=== PATIENT | male | born 1955 | race Caucasian/White ===

== ENCOUNTER 2016-09-09 20:06 | Inpatient (IN) ==
[2016-09-09] MEDS ORDERED: SODIUM CHLORIDE 0.9% 1,000 ML IV STA (20:47)
[2016-09-09 20:55] LABS: Basophils % 0.2 % (0.0-0.8); Eosinophils # 0.1 10*3/uL (0.0-0.87); Eosinophils % 0.6 % (0.00-10.9); Hematocrit 42.9 VOL% (42.0-52.0); Hemoglobin 13.6 GM/DL (14.0-18.0); Immature Granulocytes % 0.5 %; Immature Granulocytes Absolute 0.08 #; Lymphocytes # 1.2 10*3/uL (1.4-4.0); Mean Corpuscular HGB Conc 31.7 GM/DL (32-36); Mean Corpuscular Hemoglobin 29 PG (27-34); Mean Corpuscular Volume 90.5 FL (87-102); Mean Platelet Volume 11.5 FL (9.6-12.0); Monocytes # 0.8 10*3/uL (0.11-0.8); Neutrophils # 14.7 10*3/uL (1.4-7.4); Neutrophils % 86.7 % (38.7-73.9); Platelet Count 202 10*3/uL (130-400); Red Blood Count 4.74 10*6/uL (3.8-5.5); Red Cell Distribution Width 13.1 % (9.3-17.3); White Blood Count 16.9 10*3/uL (4.5-13.71)
[2016-09-09 21:06] LABS: Ammonia 12 UMOL/L (11-32)
[2016-09-09 21:10] LABS: Alanine Aminotransferase 18 U/L (16-61); Albumin 3.6 G/DL (3.4-5.0); Alkaline Phosphatase 120 U/L (45-117); Aspartate Amino Transferase 16 U/L (0-37); Calcium 8.9 MG/DL (8.5-10.1)
[2016-09-09 21:11] LABS: Blood Urea Nitrogen 18 MG/DL (7-18); Glucose 169 MG/DL (74-106); Magnesium 1.8 MG/DL (1.8-2.4); Osmolality,Calculated 288.1 MOS/KG (273-304); Potassium 4.3 MMOL/L (3.5-5.1); Sodium 142 MMOL/L (136-145); Troponin I Only < 0.015 NG/ML (0.00-0.045)
--- NOTE | 2016-09-09 21:12 | CT Report ---
CT head/brain wo con Indication: Mental status changes. CT BRAIN WITHOUT CONTRAST DLP: 970 mGy*cm Comparison: None. Date of admission: 09/09/2016. Technique: Axial noncontrast CT images of the brain were obtained. Findings: No acute hemorrhage, mass or mass effect. Mild atrophy noted. Old lacunar infarcts of the right caudate nucleus, right internal capsule are present. Onofre-white junction is otherwise maintained throughout. Visualized sinuses and mastoid air cells are clear. No bone lesions. Impression: No acute intracranial pathology. Mild atrophy. Old lacunar infarcts right basal ganglia. PROCEDURE INTERPRETED AT [facility] DEPARTMENT OF RADIOLOGY Final Report Signed by: Kulwinder Moreira M.D.
--- NOTE | 2016-09-09 21:13 | XRay Report ---
XR chest 1V portable Indication: Altered metal status. Chest one view: Comparison 04/03/16. Postoperative changes median sternotomy shown. Heart size remains normal. Perihilar scarring is again noted, similar to the previous examination. Lung volumes are quite low on the current examination with progressive bibasilar atelectasis. No discrete infiltrate. Impression: Pulmonary hypoinflation with bibasilar atelectasis. Perihilar scarring similar to March 2016. PROCEDURE INTERPRETED AT [facility] DEPARTMENT OF RADIOLOGY Final Report Signed by: Kulwinder Moreira M.D.
[2016-09-09 21:24] LABS: ABG Base Excess 4.4 MMOL/L (-2.5-2.5); ABG HCO3 28.2 MMOL/L (20-26); ABG Oxygen Saturation 92.8 % (95-100); ABG PCO2 46.5 MM HG (35-48); ABG PH 7.414 (7.35-7.45)
[2016-09-09 22:11] LABS: Apearance,Urine CLEAR (Clear); Bilirubin,Urine Negative (Negative); Blood, Urine Negative (Negative); Glucose,Urine (UA) Negative (Negative); Granular Casts,Urine 4 /LPF (0-1); Hyaline Casts,Urine 3 /LPF (0-3); Ketones,Urine Negative (Negative); Mucus,Urine Occasional /LPF (Occasional); Nitrite,Urine Negative (Negative); Protein,Urine Negative; Urine Color Yellow (Yellow); Urine Specific Gravity 1.014 (1.001-1.035); Urine Urobilinogen < 2.0 EU/DL (0.2-1.0); WBC,Urine <1 /HPF (0-6)
[2016-09-09 22:21] LABS: Barbiturates Screen,Urine Negative (Negative); Benzodiazepines Screen,Urine Positive (Negative); Cannabinoid Screen,Urine Negative (Negative); Opiate Screen,Urine Positive (Negative); Phencyclidine Screen,Urine Negative (Negative)
[2016-09-10] MEDS ORDERED: LORazepam 2 MG/1 ML VIAL ONE (00:57)
[2016-09-10] MEDS ORDERED: LORazepam 2 MG/1 ML VIAL IV STA ×2 (01:00→02:00)
[2016-09-10] MEDS ORDERED: VANCOMYCIN INJ 1,000 MG in SODIUM CHLORIDE 0.9% 250 ML IV STA (02:19)
[2016-09-10] MEDS ORDERED: cefTRIAXone 2,000 MG in SODIUM CHLORIDE 0.9% 100 ML IV ONE (02:21)
--- NOTE | 2016-09-10 02:29 | Emergency Department Note ---
ICherelle Sierra, am scribing for, and in the presence of, Brandy Calderon DO 21:05. IKvng Catherine, DO, personally performed the services described in this documentation, ascribed by Keri Villarreal in my presence, and it is both accurate and complete . Arrival - Arrival Chief Complaint: Altered Mental Status Stated Complaint: PT FAMILY STATES UNRESPONSIVE ED Nursing Triage Note: pt removed from vehicle , pt urinating on himself , pt brought to ed for altered mental status. pt family states he had ca took off left arm and has been lethargic since yesterday. pt family states he has taken morphine 30 mg po and norco 10 po today Mode of Arrival: Wheelchair Limitations: Altered Mental Status Source: Family Time Seen by Provider: 09/09/16 20:45 - History of Present Illness HPI Narrative: Pt is a 61 y/o male that was brought to the ED for further evaluation of AMS that started yesterday. Pt was removed from personal vehicle and urinated on himself upon being taken out of the vehicle. Family dictated the visit due to pt talking out of his head. states pt went 3 days ago to have a spot removed on his right forearm that was CA and he was supposed to go back tomorrow to have the dressings removed from the area. also reports pt has had a fever of 101, cough, and vomiting that began yesterday. states pt does go to the pain management clinic. denies pt taking anything other than prescribed medications but did not take any of his normal medications today. also reports pt has been breaking out in his legs for an unknown reason. Nurse's notes reports pt's family states pt has taken morphine 30 mg and [place] 10 po today. denies pt having a previous stroke or seizure. Onset (ago): day(s) Consistency: constant Severity: moderate Severity scale (1-10): 5 Quality: other Allergies/Adverse Reactions: Allergies Allergy/AdvReac Type Severity Reaction Status Date / Time No Known Allergies Allergy Verified 09/09/16 20:25 Home Medications: Home Medications Medication Instructions Recorded Confirmed Type Atorvastatin [Lipitor] 20 mg PO DAILY 03/23/15 03/29/16 History Escitalopram [Lexapro] 20 mg PO DAILY 03/23/15 03/29/16 History Fluticasone/Vilanterol [Breo 1 puff PO DAILY 03/23/15 03/29/16 History Ellipta 100-25 Mcg INH] Hydrocodone/Acetaminophen 1 tablet PO Q8HR 03/23/15 03/29/16 History [Hydrocodon-Acetaminophn 10-325] Levothyroxine Tab [Synthroid Tab] 50 mcg PO DAILY 03/23/15 03/29/16 History Morphine ER Tab [Ms Contin] 30 mg PO Q12H 03/23/15 03/29/16 History Zolpidem [Ambien] 10 mg PO BEDTIME 03/23/15 03/29/16 History glipiZIDE [Glipizide] 5 mg PO DAILY 03/23/15 03/29/16 History Gabapentin Cap/Tab [Neurontin 300 mg PO TID #90 capsule 03/25/15 03/29/16 Rx Cap/Tab] Amiodarone HCl 100 mg PO DAILY 05/20/15 04/02/16 History Albuterol Sulfate [Proair HFA] 2 puff INH Q6H PRN 03/13/16 03/29/16 History Alprazolam [Xanax] 1 tablet PO BID 03/13/16 03/29/16 History Cholecalciferol (Vitamin D3) 5,000 unit PO DAILY 03/13/16 03/29/16 History [Vitamin D3] Multivitamin [Multivitamins] 1 tablet PO DAILY 03/13/16 03/29/16 History raNITIdine HCl [Ranitidine HCl] 1 tablet PO BEDTIME 03/13/16 03/29/16 History Levofloxacin Tab [Levaquin Tab] 750 mg PO DAILY #7 tablet 04/05/16 Rx predniSONE TAB [PredniSONE] 20 mg PO DAILY #20 tablet 04/05/16 Rx Review of System - Review of System ROS unobtainable: due to mental status - Review of System Constitutional: Present: fever, weakness Neurological: Present: other (altered and confused) Medical,Surgical,& Family Hx - Medical History Cardio: History of: Cardiac Dysrhythmia (a fib), CAD, Hypertension, [place] Psychological: History of: Anxiety Disorders HEENT: History of: Ear Problem Endocrine: History of: Diabetes Mellitus (NIDDM), Dyslipidemia, Thyroid Disorder Rheumatology: History of;: Rheumatological Problems Respiratory: History of: COPD (SOB), Pneumonia Comment Only: Lung Cancer (POSSIBLE) Genitourinary: History of: Problems (HARD TO URINATE AT TIMES) Gastrointestinal: History of: GERD, Hemorrhoids Musculoskeletal: History of: Back/Neck Problems, Musculoskeletal Problems Other: History of: Cancer (POSSIBLE LUNG), MRSA - Surgical History Cardiac Surgeries: Sugical HX of: Cardiac Catheterization, Cardiac Surgery ( CABG a year ago) Orthopedic Surgeries: Surgical HX of;: Orthopedic Surgery (3 KNEE SCOPES R ELBOW ) - Family History Family History: Reports;: Family Cancer (DAD), Family Heart Disease (MOM GRANDMOTHER), Family Stroke (GRANDMOTHER) - Social History Smoking Status: Former smoker Frequency of Alcohol Use: Unknown Type of Drug Use: Unknown Marital Status: Lives With:: Spouse Functional capacity: independent ambulation Exam Vital Signs: Vital Signs Temperature 99.3 F 09/10/16 00:45 Pulse Rate 100 H 09/09/16 20:31 Respiratory Rate 20 09/09/16 20:31 Blood Pressure 120/77 09/09/16 20:31 O2 Sat by Pulse Oximetry 86 L 09/09/16 20:31 - General Exam limited due to: other (unable to answer questions due to confusion) General appearance: alert, in no apparent distress, other (confused) - Head Head exam: Present: atraumatic, normocephalic - Eye Eye exam: Present: normal appearance, PERRL, EOMI - ENT ENT exam: Present: mucous membranes moist. Absent: mucous membranes dry - Neck Neck exam: Present: full ROM. Absent: tenderness, meningismus - Chest Chest inspection: Present: symmetric chest wall rise. Absent: tenderness - Respiratory Respiratory exam: Present: normal lung sounds bilaterally. Absent: accessory muscle use, respiratory distress - Cardiovascular Cardiovascular exam: Present: regular rate, normal rhythm, normal heart sounds - Abdominal Exam Abdominal exam: Present: soft, normal bowel sounds. Absent: distention, tenderness, rebound, rigidity - Extremities Exam Extremities exam: Present: full ROM. Absent: tenderness - Back Exam Back exam: Present: full ROM. Absent: tenderness - Neurological Exam Neurological exam: Present: alert, reflexes normal, other (confused). Absent: motor sensory deficit - Psychiatric Psychiatric exam: Present: other - Skin Skin exam: Present: warm, dry Course Course Narrative: he is continuing to be confused - septic work up completed - spinal tap also done - plan to admit at this time - Consultations Consultation #1: Dr. Urbina Time: 02:28 Procedures - Lumbar Puncture Consent Obtained: verbal consent Time Out Performed: Yes Patient Position: right lateral decubitus Skin Prep: Povidone-Iodine 1% Local Anesthetic: lidocaine 1% Amount of anesthesia used (mL): 10 Spinal Needle Gauge: 22G Interspace Used: L3-L4 Fluid Initially Obtained: clear Additional Comments: difficult tap due to extensive arthritis nad chronic low back pain Complications: none Results - Labs CBC & BMP: 09/09/16 20:32 09/09/16 20:32 Lab Results: I have reviewed the patients labs Labs: Laboratory Tests 09/09/16 20:32 WBC 16.9 H Hgb 13.6 L MCHC 31.7 L Neut % (Auto) 86.7 H Lymph % (Auto) 7.0 L Neut # (Auto) 14.7 H Lymph # (Auto) 1.2 L Laboratory Tests 09/09/16 20:32 Anion Gap 16.3 H Creatinine 1.60 H Glucose 169 H Alkaline Phosphatase 120 H Albumin/Globulin Ratio 1.0 L Laboratory Tests 09/09/16 20:47 ABG pO2 60.0 L ABG HCO3 28.2 H ABG O2 Saturation 92.8 L ABG Base Excess 4.4 H Laboratory Tests 09/09/16 20:32 Urine Urobilinogen < 2.0 H Laboratory Tests 09/09/16 21:53 Urine Opiates Screen Positive H U Benzodiazepines Scrn Positive H - Diagnostic Findings Procedure: Chest x-ray: report reviewed by me (Pulmonary hypoinflation with bibasilar atelectasis. Perihilar scarring similar to March 2016.), CT: report reviewed by me (Head: No acute intracranial pathology. Mild atrophy. Old lacunar infarcts right basal ganglia. ) Disposition Clinical Impression: Altered mental status, unspecified Case discussed with: patient, patient's family Disposition: Still a Patient Condition: Stable Time of Disposition:
--- NOTE | 2016-09-10 02:45 | Hospitalist History & Physical ---
Assessment and Plan (1) Febrile illness Status: Acute Current Visit: Yes (2) recent melanoma removal Status: Acute Current Visit: Yes (3) Leukocytosis Status: Acute Current Visit: Yes (4) Smoker Status: Acute Current Visit: No (5) Anxiety and depression Status: Acute Current Visit: No (6) Chronic obstructive pulmonary disease with bronchospasm Status: Acute Current Visit: No (7) Bronchitis Status: Acute Assessment and plan: Our plan for this patient #1 admit the patient service #[address] Damian for evaluation of his arm #3 broad coverage antibiotics #4 follow-up on LP results #5 home meds as appropriate #[address] 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 Francois is a 61 year old male with past medical history significant for COPD, chronic pain, melanoma cancer, coronary artery disease, and history of staph his family reports that he had surgery to have a melanoma taken off [address] Lainez inform them do not miss with the dressing and he would take it off himself to when they went back to the office. He was scheduled to see Dr. Damian today. Family reports that he's just been gradually getting weak over the past couple of days. He's been really confused. He's been running a fever. They report that they had to get him in the truck with assistance today to bring him up to the hospital for further evaluation. He urinated on himself. He's been confused while in the emergency room and I was consulted to admit him. He had a lumbar puncture in the emergency room results are pending. Family reports that he's had a cough and some vomiting. denies patient taken anything other than his prescribed medications. Home Medications Medication Instructions Recorded Confirmed Type Atorvastatin [Lipitor] 20 mg PO DAILY 03/23/15 03/29/16 History Escitalopram [Lexapro] 20 mg PO DAILY 03/23/15 03/29/16 History Fluticasone/Vilanterol [Breo 1 puff PO DAILY 03/23/15 03/29/16 History Ellipta 100-25 Mcg INH] Hydrocodone/Acetaminophen 1 tablet PO Q8HR 03/23/15 03/29/16 History [Hydrocodon-Acetaminophn 10-325] Levothyroxine Tab [Synthroid Tab] 50 mcg PO DAILY 03/23/15 03/29/16 History Morphine ER Tab [Ms Contin] 30 mg PO Q12H 03/23/15 03/29/16 History Zolpidem [Ambien] 10 mg PO BEDTIME 03/23/15 03/29/16 History glipiZIDE [Glipizide] 5 mg PO DAILY 03/23/15 03/29/16 History Gabapentin Cap/Tab [Neurontin 300 mg PO TID #90 capsule 03/25/15 03/29/16 Rx Cap/Tab] Amiodarone HCl 100 mg PO DAILY 05/20/15 04/02/16 History Albuterol Sulfate [Proair HFA] 2 puff INH Q6H PRN 03/13/16 03/29/16 History Alprazolam [Xanax] 1 tablet PO BID 03/13/16 03/29/16 History Cholecalciferol (Vitamin D3) 5,000 unit PO DAILY 03/13/16 03/29/16 History [Vitamin D3] Multivitamin [Multivitamins] 1 tablet PO DAILY 03/13/16 03/29/16 History raNITIdine HCl [Ranitidine HCl] 1 tablet PO BEDTIME 03/13/16 03/29/16 History Levofloxacin Tab [Levaquin Tab] 750 mg PO DAILY #7 tablet 04/05/16 Rx predniSONE TAB [PredniSONE] 20 mg PO DAILY #20 tablet 04/05/16 Rx Allergies Allergy/AdvReac Type Severity Reaction Status Date / Time No Known Allergies Allergy Verified 09/09/16 20:25 Medical,Surgical,& Family Hx - Medical History Cardio: History of: Cardiac Dysrhythmia (a fib), CAD, Hypertension, [place] Psychological: History of: Anxiety Disorders HEENT: History of: Ear Problem Endocrine: History of: Diabetes Mellitus (NIDDM), Dyslipidemia, Thyroid Disorder Rheumatology: History of;: Rheumatological Problems Respiratory: History of: COPD (SOB), Pneumonia Comment Only: Lung Cancer (POSSIBLE) Genitourinary: History of: Problems (HARD TO URINATE AT TIMES) Gastrointestinal: History of: GERD, Hemorrhoids Musculoskeletal: History of: Back/Neck Problems, Musculoskeletal Problems Other: History of: Cancer (POSSIBLE LUNG), MRSA - Surgical History Cardiac Surgeries: Sugical HX of: Cardiac Catheterization, Cardiac Surgery ( CABG a year ago) Orthopedic Surgeries: Surgical HX of;: Orthopedic Surgery (3 KNEE SCOPES R ELBOW ) - Family History Family History: Reports;: Family Cancer (DAD), Family Heart Disease (MOM GRANDMOTHER), Family Stroke (GRANDMOTHER) - Social History Smoking Status: Former smoker Frequency of Alcohol Use: Unknown Type of Drug Use: Unknown ROS unobtainable: due to delirium Exam - Constitutional Vitals: Period Temp Pulse Resp BP Sys/Ingram Pulse Ox Last 24 Hr 99.3 F-100.6 F 100-100 20-20 120/77 86 - General Exam limited due to: other (unable to answer questions due to confusion that waxes and wanes) General appearance: alert, in no apparent distress, infusion is present - Head Head exam: Present: atraumatic, normocephalic - Eye Eye exam: Present: normal appearance, PERRL, EOMI - ENT ENT exam: Present: mucous membranes moist. Absent: mucous membranes dry - Neck Neck exam: Present: full ROM. Patient does have rigidity in his neck unsure if this is new - Chest Chest inspection: Present: symmetric chest wall rise. Patient has a skin graft in the center of his chest. Absent: tenderness - Respiratory Respiratory exam: Present: Coarse lung sounds bilaterally. - Cardiovascular Cardiovascular exam: Present: regular rate, normal rhythm, normal heart sounds - Abdominal Exam Abdominal exam: Present: soft, normal bowel sounds. Absent: distention, tenderness, rebound, rigidity - Extremities Exam Extremities exam: Present: full ROM. Patient has a full bandage covering up his wound from his surgery on his right right forearm Absent: tenderness - Back Exam Back exam: Present: full ROM. Absent: tenderness - Neurological Exam Neurological exam: Present: alert, reflexes normal, other (confused). Absent: motor sensory deficit - Psychiatric Psychiatric exam: Present: other - Skin Skin exam: Present: warm, dry Results - Labs CBC & BMP: 09/09/16 20:32 09/09/16 20:32
[2016-09-10] MEDS ORDERED: VANCOMYCIN 1,000 MG VIAL ONE (02:52)
[2016-09-10] MEDS ORDERED: cefTRIAXone 1,000 MG VIAL ONE (02:52)
[2016-09-10] MEDS ORDERED: ACETAMINOPHEN 325 MG TABLET PO PRN (02:53)
[2016-09-10] MEDS ORDERED: ONDANSETRON 4 MG/2 ML VIAL IV PRN (02:53)
[2016-09-10] MEDS ORDERED: DEXTROSE 50% 25 GM/50 ML VIAL IV PRN (03:01)
[2016-09-10] MEDS ORDERED: GLUCAGON 1 MG VIAL IM PRN (03:01)
[2016-09-10] MEDS ORDERED: LORazepam 2 MG/1 ML VIAL IV PRN (03:06)
[2016-09-10] MEDS ORDERED: ALBUTEROL/IPRATROPIUM 3 ML NEB RESP TX PRN (03:07)
[2016-09-10 04:18] LABS: Appearance,CSF Clear; Lymphocytes,CSF 74 %; Monocytes,CSF 26 %; Red Blood Cell,CSF 46 C/CUMM; White Blood Cell,CSF 19 C/CUMM
[2016-09-10] MEDS: VANCOMYCIN INJ 1,000 MG in SODIUM CHLORIDE 0.9% 250 ML IV SCH ×2 (04:30→05:57)
[2016-09-10] MEDS: MORPHINE ER 30 MG TABLET PO SCH ×2 (05:08→16:00)
[2016-09-10] MEDS: ENOXAPARIN 40 MG/0.4 ML SYRINGE SUBCUT SCH (05:11)
[2016-09-10 05:41] LABS: Basophils % 0.2 % (0.0-0.8); Eosinophils % 0.3 % (0.00-10.9); Hemoglobin 11.2 GM/DL (14.0-18.0); Immature Granulocytes % 0.7 %; Immature Granulocytes Absolute 0.11 #; Lymphocytes # 1.9 10*3/uL (1.4-4.0); Lymphocytes % 12.1 % (21.2-54.2); Mean Corpuscular HGB Conc 31.1 GM/DL (32-36); Mean Corpuscular Hemoglobin 29 PG (27-34); Mean Corpuscular Volume 91.8 FL (87-102); Mean Platelet Volume 11.4 FL (9.6-12.0); Monocytes # 1.2 10*3/uL (0.11-0.8); Monocytes % 7.4 % (1.7-12.7); Neutrophils # 12.4 10*3/uL (1.4-7.4); Neutrophils % 79.3 % (38.7-73.9); Platelet Count 167 10*3/uL (130-400); Red Blood Count 3.92 10*6/uL (3.8-5.5); Red Cell Distribution Width 13.2 % (9.3-17.3); White Blood Count 15.6 10*3/uL (4.5-13.71)
[2016-09-10] MEDS ORDERED: VANCOMYCIN INJ 1,000 MG in SODIUM CHLORIDE 0.9% 250 ML IV ONE (06:00)
[2016-09-10 06:13] LABS: Calcium 8.3 MG/DL (8.5-10.1); Osmolality,Calculated 286.8 MOS/KG (273-304); Potassium 4.2 MMOL/L (3.5-5.1)
[2016-09-10] MEDS: LEVOTHYROXINE 50 MCG TABLET PO SCH (07:21)
--- NOTE | 2016-09-10 07:23 | EKG Report ---
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
[2016-09-10] MEDS: ALBUTEROL/IPRATROPIUM 3 ML NEB RESP TX SCH ×3 (07:46→19:17)
--- NOTE | 2016-09-10 07:54 | Pulmonology Consult Note ---
Assessment and Plan (1) Bronchopneumonia Status: Acute Assessment and plan: Fever cough elevated white count and patchy infiltrate in the right lower lobe on x-ray. Agree with current antibiotics. He is being covered for possible meningitis as well with these antibiotics. Await spinal tap reports. Current Visit: Yes (2) Altered mental status, unspecified Status: Acute Assessment and plan: Patient is more alert this morning. I suspect it was a combination of his acute febrile illness and his chronic pain medications that caused the confusion and hallucinations. However a neurology evaluation would be helpful. Brain CT did not show anything specific. Family assures me that one of his sons supervises his pain medications. Current Visit: Yes (3) recent melanoma removal Status: Acute Assessment and plan: Dr. José Miguel Damian removed a melanoma from his right arm last week. This needs following up during this hospitalization. Current Visit: Yes (4) Chronic obstructive pulmonary disease with bronchospasm Status: Acute Assessment and plan: Will treat with low-dose IV STEROIDS as well as bronchodilators and antibiotics. We need to check ABGs to be sure he is not having CO2 narcosis. Current Visit: No History of Present Illness Chief complaint: confusion, cough, fever History of present illness: Mr. Francois is a 61 year old male who had a lesion removed from his right arm recently that is reportedly a melanoma. He has been on pain medication chronically with oral long-acting morphine as well as [place]. Family relates that he's been taking it just as prescribed. Yesterday he had some fever cough and was quite confused and lethargic. He urinated on himself. He had to be floated into the truck and taken to the emergency room. This morning he is a little more alert and oriented. He has a history of atherosclerotic heart disease with coronary bypass surgery. 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 He has been evaluated recently to decide about closing that with a flap. I think he is high risk for any surgery. At any rate he comes in now with a patchy infiltrate in his lungs, elevated white count, lethargy, and low-grade fever. Probably represents bronchopneumonia aggravated by pain medications as the cause of his confusion. He has had a spinal tap with results pending. He's had a brain CT with no specific findings. He recently was followed for a left upper lobe lung mass that has essentially resolved. It was a slowly resolving pneumonia. Home Medications Medication Instructions Recorded Confirmed Type Atorvastatin [Lipitor] 20 mg PO DAILY 03/23/15 09/10/16 History Escitalopram [Lexapro] 20 mg PO DAILY 03/23/15 09/10/16 History Fluticasone/Vilanterol [Breo 1 puff PO DAILY 03/23/15 09/10/16 History Ellipta 100-25 Mcg INH] Hydrocodone/Acetaminophen 1 tablet PO Q8HR 03/23/15 09/10/16 History [Hydrocodon-Acetaminophn 10-325] Levothyroxine Tab [Synthroid Tab] 50 mcg PO DAILY 03/23/15 09/10/16 History Morphine ER Tab [Ms Contin] 30 mg PO Q12H 03/23/15 09/10/16 History Zolpidem [Ambien] 10 mg PO BEDTIME 03/23/15 09/10/16 History glipiZIDE [Glipizide] 5 mg PO DAILY 03/23/15 09/10/16 History Gabapentin Cap/Tab [Neurontin 300 mg PO TID #90 capsule 03/25/15 09/10/16 Rx Cap/Tab] Amiodarone HCl 100 mg PO DAILY 05/20/15 09/10/16 History Albuterol Sulfate [Proair HFA] 2 puff INH Q6H PRN 03/13/16 09/10/16 History Alprazolam [Xanax] 1 tablet PO BID 03/13/16 09/10/16 History Cholecalciferol (Vitamin D3) 5,000 unit PO DAILY 03/13/16 09/10/16 History [Vitamin D3] Multivitamin [Multivitamins] 1 tablet PO DAILY 03/13/16 09/10/16 History raNITIdine HCl [Ranitidine HCl] 1 tablet PO BEDTIME 03/13/16 09/10/16 History predniSONE TAB [PredniSONE] 20 mg PO DAILY #20 tablet 04/05/16 09/10/16 Rx Allergies Allergy/AdvReac Type Severity Reaction Status Date / Time No Known Allergies Allergy Verified 09/09/16 20:25 12 point system: reviewed and no additional remarkable complaints except as stated - Constitutional Constitutional: Present: anorexia, fatigue, malaise - Cardiovascular Cardiovascular: Present: dyspnea, dyspnea on exertion - Respiratory Respiratory: Present: cough, dyspnea, dyspnea on exertion, wheezing, pain on inspiration (right subcostal pain), change in phlegm color - Gastrointestinal Gastrointestinal: Present: nausea - Musculoskeletal Musculoskeletal: Present: arthralgias, myalgias - Neurological Neurological: Present: confusion - Psychiatric Psychiatric: Present: visual hallucinations Exam (Pulmonay) H&P - Constitutional Vitals: Period Temp Pulse Resp BP Sys/Ingram Pulse Ox Last 24 Hr 99.2 F-100.3 F 77-83 20-20 130-152/51-75 93-95 Exam: Temperature was 100.3 overnight. Vital signs otherwise normal. Patient is alert and answering questions. He recalls making some odd statements about Russians coming to see him yesterday. He realizes that it was not happening now. Pupils react to light. Throat is clear. Neck supple no bruits. Chest reveals some scattered expiratory wheezes and rhonchi bilaterally. He has a defect over his sternum. The sternum is covered with skin only. Heart shows a normal rate and rhythm no murmurs. Abdomen soft nontender no masses. Bowel sounds present. Extremities no clubbing cyanosis or edema. There is some mild tenderness in his calves. Medical,Surgical,& Family Hx - Medical History Cardio: History of: Cardiac Dysrhythmia (a fib), CAD, Hypertension, [place] Psychological: History of: Anxiety Disorders HEENT: History of: Ear Problem Endocrine: History of: Diabetes Mellitus (NIDDM), Dyslipidemia, Thyroid Disorder Rheumatology: History of;: Rheumatological Problems Respiratory: History of: COPD (SOB), Pneumonia Comment Only: Lung Cancer (POSSIBLE) Genitourinary: History of: Problems (HARD TO URINATE AT TIMES) Gastrointestinal: History of: GERD, Hemorrhoids Musculoskeletal: History of: Back/Neck Problems, Musculoskeletal Problems Other: History of: Cancer (POSSIBLE LUNG), MRSA - Surgical History Cardiac Surgeries: Sugical HX of: Cardiac Catheterization, Cardiac Surgery ( CABG a year ago) Orthopedic Surgeries: Surgical HX of;: Orthopedic Surgery (3 KNEE SCOPES R ELBOW ) - Family History Family History: Reports;: Family Cancer (DAD), Family Heart Disease (MOM GRANDMOTHER), Family Stroke (GRANDMOTHER) - Social History Smoking Status: Former smoker Frequency of Alcohol Use: Unknown Type of Drug Use: Unknown Results - Labs CBC & BMP: 09/10/16 05:20 09/10/16 05:20 Lab Results: I have reviewed the past 24 hour labs - Diagnostic Findings Procedure: Chest x-ray: image reviewed by me (patchy infiltrate right lower lobe. Previously noted left upper lobe lesion is even smaller. Again that reflects a slowly resolving pneumonia.)
[2016-09-10 08:51] LABS: ABG Base Excess 5.5 MMOL/L (-2.5-2.5); ABG HCO3 30.2 MMOL/L (20-26); ABG Oxygen Saturation 96.2 % (95-100); ABG PCO2 44.5 MM HG (35-48); ABG PH 7.449 (7.35-7.45); ABG PO2 78.8 MM HG (80-95); ABG TCO2 31.5 MMOL/L (23-27); Allen Test Positive
[2016-09-10] MEDS ORDERED: predniSONE 20 MG TABLET PO SCH (09:00)
[2016-09-10] MEDS ORDERED: NON-FORMULARY MEDICATION (Fluticasone/Vilanterol [Breo Ellipta 100-25 Mcg Inh] 1 PUFF) PO SCH (09:00)
[2016-09-10] MEDS: INSULIN REGULAR 100 UNIT/ML SUBCUT SCH ×4 (09:58→22:12)
[2016-09-10] MEDS: ESCITALOPRAM 10 MG TABLET PO SCH (09:59)
[2016-09-10] MEDS: PANTOPRAZOLE 40 MG TABLET PO SCH (09:59)
[2016-09-10] MEDS: MULTIVITAMIN (CENTRUM) TABLET PO SCH (10:00)
[2016-09-10] MEDS: CHOLECALCIFEROL 1,000 UNIT TABLET PO SCH (10:00)
[2016-09-10] MEDS: ALPRAZolam 0.5 MG TABLET PO SCH ×2 (10:00→22:07)
[2016-09-10] MEDS: AMIODARONE 200 MG TABLET PO SCH (10:01)
[2016-09-10] MEDS: GABAPENTIN 300 MG CAPSULE PO SCH ×3 (10:01→22:07)
[2016-09-10] MEDS: ATORVASTATIN 20 MG TABLET PO SCH (10:01)
[2016-09-10] MEDS: methylPREDNISolone SOD SUC 40 MG/1 ML VIAL IV SCH ×2 (10:02→22:09)
--- NOTE | 2016-09-10 13:32 | Hospitalist Progress Note ---
Assessment and Plan - Time spent with patient Time spent with patient: Greater than 30 minutes (1) Sepsis Status: Acute Assessment and plan: Concern for sepsis. Source maybe his pneumonia. Obtain MRI of his brain and cervical spine due to neck pain and a history of MRSA infection post CABG. Current Visit: Yes (2) Encephalopathy Status: Acute Assessment and plan: Likely infectious related. MRI brain pending. Current Visit: Yes (3) Pneumonia Status: Acute Assessment and plan: Continue antibiotics. Pulmonary on board. Current Visit: Yes (4) Atrial fibrillation Status: Chronic Assessment and plan: Continue medications. Current Visit: No Qualifiers: Atrial fibrillation type: chronic Qualified Code(s): I48.2 - Chronic atrial fibrillation Hospitalist: Subjective Interval history: Patients mental status has improved significantly however he states he has memory issues and his son agrees. He also complains of neck pain. He has been having fevers since admission. LP was performed. Exam - Constitutional Vitals: Period Temp Pulse Resp BP Sys/Ingram Pulse Ox Last 24 Hr 99.2 F-100.3 F 68-83 20-20 130-152/51-75 93-97 General appearance: no acute distress - Head Head exam: Present: normocephalic, atraumatic - Eye Eye exam: Present: EOMI Pupils: Present: ANGELICA - ENT ENT exam: Present: normal exam - Neck Neck exam: Present: normal inspection - Respiratory Respiratory exam: Present: clear to auscultation bilaterally. Absent: rhonchi, wheezes - Cardiovascular Cardiovascular exam: Present: regular rate and rhythm. Absent: gallop, rubs, systolic murmur - GI/Abdominal GI/Abdominal exam: Present: normal bowel sounds, soft. Absent: distended, firm , guarding, tenderness, rebound - Extremities Exam Extremities exam: Present: normal inspection. Absent: calf tenderness, edema Results - Labs CBC & BMP: 09/10/16 05:20 09/10/16 05:20 Lab Results: I have reviewed the past 24 hour labs
[2016-09-10] MEDS: cefTRIAXone 2,000 MG in SODIUM CHLORIDE 0.9% 100 ML IV SCH (15:30)
--- NOTE | 2016-09-10 17:56 | Magnetic Resonance Report ---
MR head/brain wo con Indication: Altered metal status. MRI BRAIN WITHOUT CONTRAST Technique: Multiplanar noncontrast MR images of the brain were obtained. Comparison: None. Findings: No restricted diffusion. A few scattered T2 and FLAIR hyperintensities are present within the white matter of both convexities, and there is a small T2 lesion within the left segun. No mass or mass effect. Mild generalized atrophy noted. No abnormal blood products. Visualized sinuses are clear. Bony structures are maintained. Orbits are symmetric. Impression: 1. No acute intracranial pathology. 2. Scattered areas of T2 and FLAIR hyperintensity usually associated with chronic small vessel ischemic change. One of these hyperintensities is located in the left segun and correlation with physical exam findings warranted. 3. Mild generalized atrophy. PROCEDURE INTERPRETED AT [facility] DEPARTMENT OF RADIOLOGY Final Report Signed by: Kulwinder Moreira M.D.
--- NOTE | 2016-09-10 18:08 | Magnetic Resonance Report ---
MR cervical spine wo con Indication: Neck pain. MRI CERVICAL SPINE WITHOUT CONTRAST Technique: Multiplanar noncontrast MR images of the cervical spine were obtained. Comparison: None. Findings: No abnormal cord signal. Disc desiccation is present throughout cervical spine. Endplate spondylitic changes at C4-5, C5-6 noted. No spondylolisthesis. No abnormal marrow signal. Craniocervical junction is unremarkable. Small focus of T2 signal within the left segun is present, better described on the MRI brain. C2-3: Midline disc bulge indents the ventral thecal sac and also contacts the cord. However, plenty of CSF surrounds cord and there is no canal or foraminal stenosis evident. C3-4: Broad-based disc bulge flattens the ventral thecal sac with a central midline component may be slightly edematous. Mild canal stenosis as a result. Uncovertebral joint hypertrophy results in mild bilateral foraminal stenosis. C4-5: Broad-based disc bulge with ligamentum flavum thickening and mild canal stenosis. Mild uncovertebral joint is present bilaterally with mild bilateral foraminal stenosis present. C5-6: Broad-based disc bulge flattens ventral thecal sac with mild canal stenosis. Uncovertebral joint hypertrophy is present bilaterally with minimal bilateral foraminal stenosis. C6-7: Midline disc herniation with edema is present, with broad-based disc bulge present back. Moderate canal stenosis with disc until contacting the ventral cord and displacing it posteriorly against the thickened ligamentum flavum. Uncovertebral joint hypertrophy is mild at this level without significant intervertebral foraminal stenosis evident. C7-T1: No significant canal or foraminal stenosis. Impression: 1. Diffuse degenerative disc disease as described. Resultant mild canal stenosis at C3-4, C4-5, and C5-6. 2. Midline disc herniation at C6-7 with chronic broad-based disc bulge noted, combined with ligamentum flavum thickening results in moderate canal stenosis. No cord edema. 3. Uncovertebral joint hypertrophy throughout, resulting in mild bilateral C3-4, C4-5, and C5-6 foraminal stenosis. PROCEDURE INTERPRETED AT [facility] DEPARTMENT OF RADIOLOGY Final Report Signed by: Kulwinder Moreira M.D.
[2016-09-10] MEDS: ZALEPLON 5 MG CAPSULE PO SCH (22:07)
[2016-09-10] MEDS: FAMOTIDINE 20 MG TABLET PO SCH (22:08)
[2016-09-11] MEDS: ALBUTEROL/IPRATROPIUM 3 ML NEB RESP TX SCH ×4 (01:40→19:17)
[2016-09-11] MEDS: cefTRIAXone 2,000 MG in SODIUM CHLORIDE 0.9% 100 ML IV SCH ×2 (02:35→14:57)
[2016-09-11] MEDS: MORPHINE ER 30 MG TABLET PO SCH ×2 (02:35→14:56)
[2016-09-11 04:05] LABS: Basophils % 0.1 % (0.0-0.8); Eosinophils % 0.1 % (0.00-10.9); Hematocrit 33.7 VOL% (42.0-52.0); Hemoglobin 10.6 GM/DL (14.0-18.0); Immature Granulocytes % 0.8 %; Lymphocytes # 0.9 10*3/uL (1.4-4.0); Lymphocytes % 7.1 % (21.2-54.2); Mean Corpuscular HGB Conc 31.5 GM/DL (32-36); Mean Corpuscular Hemoglobin 28 PG (27-34); Mean Corpuscular Volume 90.3 FL (87-102); Mean Platelet Volume 11.9 FL (9.6-12.0); Monocytes # 0.4 10*3/uL (0.11-0.8); Monocytes % 3.2 % (1.7-12.7); Neutrophils # 11.3 10*3/uL (1.4-7.4); Neutrophils % 88.7 % (38.7-73.9); Platelet Count 148 T/CUMM (130-400); Red Blood Count 3.73 MC/CUMM (3.8-5.5); Red Cell Distribution Width 13.1 % (9.3-17.3); White Blood Count 12.7 T/CUMM (4-12)
[2016-09-11 04:37] LABS: Calcium 8.5 MG/DL (8.5-10.1); Osmolality,Calculated 292.8 MOS/KG (273-304); Potassium 3.9 MMOL/L (3.5-5.1)
[2016-09-11] MEDS: LEVOTHYROXINE 50 MCG TABLET PO SCH (06:33)
[2016-09-11] MEDS: INSULIN REGULAR 100 UNIT/ML SUBCUT SCH ×4 (08:00→22:18)
--- NOTE | 2016-09-11 08:07 | Pulmonology Progress Note ---
Pulmonary - PN: Subj Interval history: This 61-year-old white male has COPD. He had a recent surgery on his left arm having a melanoma removed. Apparently was taking some pain medication and had an increased cough congestion shortness of breath and bronchopneumonia. Decreased level of consciousness. He came into the hospital and is now doing much better. We're withholding the pain medication somewhat. He's gotten antibiotics for his bronchopneumonia. I would suggest another couple days of IV medicines. He needs follow-up on his arm surgery by Dr. Damian. Exam (Progress Note) - Constitutional Vitals: Period Temp Pulse Resp BP Sys/Ingram Pulse Ox Last 24 Hr 97.3 F-99.3 F 61-76 14-25 98-124/46-76 92-98 Exam: Patient is alert and oriented. Vital signs normal. Pupils react to light. Throat is clear. Neck supple no bruits. Chest minimal rhonchi equal breath sounds. Heart normal rate rhythm no murmurs. He has a defect over his sternum from previous sternal infection with debridement. Abdomen soft nontender no masses. Bowel sounds present. Extremities no clubbing cyanosis or edema. Calves nontender. Results - Labs CBC & BMP: 09/11/16 03:21 09/11/16 03:21 Lab Results: I have reviewed the past 24 hour labs Assessment and Plan (1) Bronchopneumonia Status: Acute Assessment and plan: Fever cough elevated white count and patchy infiltrate in the right lower lobe on x-ray. Agree with current antibiotics. He is being covered for possible meningitis as well with these antibiotics. Await spinal tap reports. 09/11/2016 continuing antibiotics for bronchopneumonia. Current Visit: Yes (2) Altered mental status, unspecified Status: Acute Assessment and plan: Patient is more alert this morning. I suspect it was a combination of his acute febrile illness and his chronic pain medications that caused the confusion and hallucinations. However a neurology evaluation would be helpful. Brain CT did not show anything specific. Family assures me that one of his sons supervises his pain medications. 09/11/2016 suspect his altered mental status was an interaction between exacerbation of his COPD, bronchopneumonia, and pain medications. Current Visit: Yes (3) recent melanoma removal Status: Acute Assessment and plan: Dr. José Miguel Damian removed a melanoma from his right arm last week. This needs following up during this hospitalization. Current Visit: Yes (4) Chronic obstructive pulmonary disease with bronchospasm Status: Acute Assessment and plan: Will treat with low-dose IV STEROIDS as well as bronchodilators and antibiotics. We need to check ABGs to be sure he is not having CO2 narcosis. 09/11/2016 continuing above medications. ABG showed up PO2 78 PCO2 44 pH 7.44 on 2 L oxygen. No significant CO2 retention. Current Visit: No
[2016-09-11] MEDS ORDERED: VANCOMYCIN INJ 1,500 MG in SODIUM CHLORIDE 0.9% 500 ML IV SCH (09:00)
[2016-09-11] MEDS: methylPREDNISolone SOD SUC 40 MG/1 ML VIAL IV SCH ×2 (09:33→22:15)
[2016-09-11] MEDS: GABAPENTIN 300 MG CAPSULE PO SCH ×3 (09:33→22:14)
[2016-09-11] MEDS: MULTIVITAMIN (CENTRUM) TABLET PO SCH (09:33)
[2016-09-11] MEDS: ATORVASTATIN 20 MG TABLET PO SCH (09:33)
[2016-09-11] MEDS: ESCITALOPRAM 10 MG TABLET PO SCH (09:34)
[2016-09-11] MEDS: ALPRAZolam 0.5 MG TABLET PO SCH ×2 (09:34→22:14)
[2016-09-11] MEDS: PANTOPRAZOLE 40 MG TABLET PO SCH (09:34)
[2016-09-11] MEDS: AMIODARONE 200 MG TABLET PO SCH (09:35)
[2016-09-11] MEDS: CHOLECALCIFEROL 1,000 UNIT TABLET PO SCH (09:37)
[2016-09-11] MEDS: ENOXAPARIN 40 MG/0.4 ML SYRINGE SUBCUT SCH (10:41)
--- NOTE | 2016-09-11 12:17 | Hospitalist Progress Note ---
Assessment and Plan - Time spent with patient Time spent with patient: Greater than 30 minutes (1) Sepsis Status: Acute Assessment and plan: Concern for sepsis. Source maybe his pneumonia. Brain MRI reveals T2 hyperdensity in segun, will consult Neurology. Neck MRI unremarkable for acute disease. Current Visit: Yes (2) Encephalopathy Status: Acute Assessment and plan: Likely infectious related. MRI brain with results above. Current Visit: Yes (3) Pneumonia Status: Acute Assessment and plan: Continue antibiotics. Pulmonary on board. Current Visit: Yes (4) Atrial fibrillation Status: Chronic Assessment and plan: Apparently last year he had a lung biopsy and his eloquent S was held. Currently he does not appear to be on eloquent or aspirin. He does have significant cardiac disease. We appreciate the recommendations. I have asked cardiology to reevaluate the patient. Current Visit: No Qualifiers: Atrial fibrillation type: chronic Qualified Code(s): I48.2 - Chronic atrial fibrillation (5) Lung mass Status: Acute Assessment and plan: We appreciate pulmonary's evaluation of patient's pathology. Patient had a lung biopsy last year that may represent adenocarcinoma. In the meantime we'll consult oncology for any recommendations. Current Visit: No (6) recent melanoma removal Status: Acute Assessment and plan: Awaiting evaluation by Dr. Damian who performed the surgery. Current Visit: Yes Hospitalist: Subjective Interval history: No complaints, no overnight events. The patient wishes for his plastic surgeon to see him regarding his left arm surgery. Exam - Constitutional Vitals: Period Temp Pulse Resp BP Sys/Ingram Pulse Ox Last 24 Hr 97.3 F-97.6 F 61-74 14-25 96-113/46-60 91-98 General appearance: no acute distress - Head Head exam: Present: normocephalic, atraumatic - Eye Eye exam: Present: EOMI Pupils: Present: ANGELICA - ENT ENT exam: Present: normal exam - Neck Neck exam: Present: normal inspection - Respiratory Respiratory exam: Present: clear to auscultation bilaterally. Absent: rhonchi, wheezes - Cardiovascular Cardiovascular exam: Present: regular rate and rhythm. Absent: gallop, rubs, systolic murmur - GI/Abdominal GI/Abdominal exam: Present: normal bowel sounds, soft. Absent: distended, firm , guarding, tenderness, rebound - Extremities Exam Extremities exam: Present: normal inspection. Absent: calf tenderness, edema Results - Labs CBC & BMP: 09/11/16 03:21 09/11/16 03:21 Lab Results: I have reviewed the past 24 hour labs
--- NOTE | 2016-09-11 15:36 | Neurology Consult Note ---
History of Present Illness History of present illness: Mr. Francois is a 61 year old right-handed white gentleman with past medical history significant for COPD, chronic pain, melanoma cancer, coronary artery disease, and history of staph infection in the chest his family reports that he had surgery to have a melanoma taken off 1 week ago. Family reports that he's just been gradually gotten worse and weak over the couple of days prior to admission. He was really confused. He also had fever. They report that they had to get him in the truck with assistance to bring him up to the hospital for further evaluation. He urinated on himself. He stayed confused while in the emergency room and also for 24 hours. He had a lumbar puncture in the emergency room results are pending. Family reports that he's had a cough and some vomiting. denies patient taken anything other than his prescribed medications. He underwent MRI of the brain which revealed no acute abnormalities. He underwent spinal tap which shows WBC count of 19 with 74% lymphocytes and total protein of 53. All the cultures, meningitis antigen panel , cryptococcus antigen are all negative. Home Medications Medication Instructions Recorded Confirmed Type Atorvastatin [Lipitor] 20 mg PO DAILY 03/23/15 09/10/16 History Escitalopram [Lexapro] 20 mg PO DAILY 03/23/15 09/10/16 History Fluticasone/Vilanterol [Breo 1 puff PO DAILY 03/23/15 09/10/16 History Ellipta 100-25 Mcg INH] Hydrocodone/Acetaminophen 1 tablet PO Q8HR 03/23/15 09/10/16 History [Hydrocodon-Acetaminophn 10-325] Levothyroxine Tab [Synthroid Tab] 50 mcg PO DAILY 03/23/15 09/10/16 History Morphine ER Tab [Ms Contin] 30 mg PO Q12H 03/23/15 09/10/16 History Zolpidem [Ambien] 10 mg PO BEDTIME 03/23/15 09/10/16 History glipiZIDE [Glipizide] 5 mg PO DAILY 03/23/15 09/10/16 History Gabapentin Cap/Tab [Neurontin 300 mg PO TID #90 capsule 03/25/15 09/10/16 Rx Cap/Tab] Amiodarone HCl 100 mg PO DAILY 05/20/15 09/10/16 History Albuterol Sulfate [Proair HFA] 2 puff INH Q6H PRN 03/13/16 09/10/16 History Alprazolam [Xanax] 1 tablet PO BID 03/13/16 09/10/16 History Cholecalciferol (Vitamin D3) 5,000 unit PO DAILY 03/13/16 09/10/16 History [Vitamin D3] Multivitamin [Multivitamins] 1 tablet PO DAILY 03/13/16 09/10/16 History raNITIdine HCl [Ranitidine HCl] 1 tablet PO BEDTIME 03/13/16 09/10/16 History predniSONE TAB [PredniSONE] 20 mg PO DAILY #20 tablet 04/05/16 09/10/16 Rx Allergies Allergy/AdvReac Type Severity Reaction Status Date / Time No Known Allergies Allergy Verified 09/09/16 20:25 12 point system: reviewed and no additional remarkable complaints except as stated Medical,Surgical,& Family Hx - Medical History Cardio: History of: Cardiac Dysrhythmia (a fib), CAD, Hypertension, MS Psychological: History of: Anxiety Disorders, Depression HEENT: History of: Ear Problem, Dental Problems (WEARS TOP DENTURES, NATURAL BOTTOM TEETH) Endocrine: History of: Diabetes Mellitus (NIDDM), Dyslipidemia, Thyroid Disorder Rheumatology: History of;: Rheumatological Problems Respiratory: History of: COPD (SOB), Pneumonia Comment Only: Lung Cancer (POSSIBLE) Genitourinary: History of: Recurring Urinary Tract Infections, Problems ( HARD TO URINATE AT TIMES) No history of: Prostate Problems Gastrointestinal: History of: GERD, Hemorrhoids Musculoskeletal: History of: Back/Neck Problems, Musculoskeletal Problems Other: History of: Cancer (POSSIBLE LUNG), MRSA - Surgical History Cardiac Surgeries: Sugical HX of: Cardiac Catheterization, Cardiac Surgery ( CABG a year ago) Orthopedic Surgeries: Surgical HX of;: Orthopedic Surgery (3 KNEE SCOPES R ELBOW ) - Family History Family History: Reports;: Family Cancer (DAD), Family Diabetes (DAD), Family Heart Disease (MOM GRANDMOTHER), Family Hematology (UNSURE WHAT), Family Hypertension (MOM,DAD), Family Psychiatric Problems (BROTHER), Family Stroke ( GRANDMOTHER) Denies;: Additional Family History - Social History Smoking Status: Former smoker Frequency of Alcohol Use: Unknown Type of Drug Use: Unknown Exam - Constitutional Vitals: Period Temp Pulse Resp BP Sys/Ingram Pulse Ox Last 24 Hr 97.3 F-97.6 F 61-74 14-25 96-113/46-60 91-98 Exam: GENERAL: Patient is in no acute distress. NECK: Neck is supple. There is no JVD. No carotid bruits present. No thyroid masses. CVS: First and second heart sounds are normal. There is no S3 present. Regular rate and rhythm. RESPIRATORY: Lungs are clear to auscultation without any rales or rhonchi. ABDOMEN: Soft and non-tender. Bowel sounds are present. There is no hepatosplenomegaly. EXT: There is no palpable edema. Peripheral pulses are present. Skin: No rashes Central Nervous system: General: Alert, awake and Oriented x 3 Speech: Fluent Comprehension: Intact and normal Facial expressions: Normal Cranial Nerves: CN1/Olfactory: Normal CN II/ Optic: Normal, Visual Arnold unreliable CN III, and : ANGELICA & EOMI CN V: Normal & intact CN VII: face is symmetric CNVIII: Normal CN XI/X/XI/XII: Intact and Normal Motor: Bulk and Tone is normal. Strength in the right 4/5 Strength in the left 4/5 Sensory: Grossly intact for all the modalities of PP, LT and temp sense Reflexes: 1+ and symmetrical Cerebellar function: Normal finger to nose and heel to christine testing. Gait: No tested at this time Results - Labs CBC & BMP: 09/11/16 03:21 09/11/16 03:21 Assessment and Plan (1) Altered mental status, unspecified Status: Acute Assessment and plan: This is likely multifactorial. CSF findings suggest possible aseptic meningitis and patient is on high dose of Rocephin for possible sepsis. No further neurological intervention needed at this time. Continue watchful observation. Current Visit: Yes
--- NOTE | 2016-09-11 16:02 | Cardiology Consult Note ---
Marc Gillespie Vanessa RN, am scribing for, and in the presence of, Colleen Redding DO 15 :50. Assessment and Plan - Time spent with patient Time spent with patient: Greater than 30 minutes (due to assessment, planning, documentation) (1) Paroxysmal atrial fibrillation Status: Chronic Current Visit: No (2) Chronic anticoagulation Status: Acute Assessment and plan: Resume Eliquis 5 mg PO BID Current Visit: Yes (3) Bronchopneumonia Status: Acute Current Visit: Yes (4) Altered mental status, unspecified Status: Acute Current Visit: Yes (5) H/O four vessel coronary artery bypass graft Status: Chronic Current Visit: No (6) Anxiety and depression Status: Chronic Current Visit: No (7) Hyperlipidemia Status: Acute Current Visit: No (8) Chronic obstructive pulmonary disease with bronchospasm Status: Chronic Current Visit: No (9) Diabetes Status: Chronic Current Visit: No Qualifiers: Diabetes mellitus type: type 2 Diabetes mellitus complication status: with unspecified complications (10) Chronic pain Status: Chronic Current Visit: No (11) recent melanoma removal Status: Acute Current Visit: Yes History of Present Illness - Data of Consult Patient: known to practice within the last 3 years Consult date: 09/11/16 Requesting Physician: Karyn Rojo - Consult Narrative Reason for consult: atrial fib, anticoagulation History of present illness: Mr. Francois is a 61 year old white male routinely followed by Dr. Josh Quiles in clinic. PMHx includes CAD with coronary artery bypass grafting x 4 in 2013 with stormy post operative course including mediastinitis, MRSA, and prolonged mechanical ventilation, paroxysmal atrial fibrillation with chronic anticoagulation, hypothyroidism, GERD, diabetes, lung biopsy Mar 2016, chronic pain followed by pain management, and has recently had a melanoma removed from right forearm by Dr. Damian reportedly approximately one week ago. This was uneventful until he developed an altered mental status, was febrile 100.6F. Diagnostic workup included chest x-ray, lumbar puncture, EKG, lab work. Subsequently felt to have developed a bronchopneumonia and is currently on IV atbx. Cardiology has been consulted for assistance with anticoagulation for patient's atrial fib. Patient reports he has taken his Eliquis and ASA as prescribed, but he has not taken since he prepared for melanoma removal, now about 10 days without it. He denies palpitation or any recent episodes of RVR, PND, orthopnea, cough, or chill. Sinus rhythm per EKG this admission. Upon exam, apical pulse is regular. No CP. He is short of breath, but this has not changed recently in severity. He contributes his dyspnea to his chronic COPD. BP 108/53, HR 60's Labs reviewed: WBC 12.7, H/H 10.6 & 33.7, Na+ 144, Kt 3.9, creatinine 1.2, glucose 228 I saw and examined the patient with Ms. Tran. This very pleasant 61-year-old patient of Dr. Josh quiles'lia who presents with febrile illness of possible aspiration. He has paroxysmal atrial fibrillation which is treated with rate control and anticoagulation. He was off his Eliquis for a brief period around the time of melanoma resection of his right arm. We been asked to see for further recommendations as documented above. I reviewed the patient's EKGs and they are normal sinus rhythm with PACs. I recommend that we resume his Eliquis if there are no impending procedures. His previous dose is 5 mg's p.o. twice daily. Nothing further to add at this point we will sign off please call if further assistance is needed. CC: Karyn Rojo MD - Home Medications and Allergies Home Medications: Home Medications Medication Instructions Recorded Confirmed Type Atorvastatin [Lipitor] 20 mg PO DAILY 03/23/15 09/10/16 History Escitalopram [Lexapro] 20 mg PO DAILY 03/23/15 09/10/16 History Fluticasone/Vilanterol [Breo 1 puff PO DAILY 03/23/15 09/10/16 History Ellipta 100-25 Mcg INH] Hydrocodone/Acetaminophen 1 tablet PO Q8HR 03/23/15 09/10/16 History [Hydrocodon-Acetaminophn 10-325] Levothyroxine Tab [Synthroid Tab] 50 mcg PO DAILY 03/23/15 09/10/16 History Morphine ER Tab [Ms Contin] 30 mg PO Q12H 03/23/15 09/10/16 History Zolpidem [Ambien] 10 mg PO BEDTIME 03/23/15 09/10/16 History glipiZIDE [Glipizide] 5 mg PO DAILY 03/23/15 09/10/16 History Gabapentin Cap/Tab [Neurontin 300 mg PO TID #90 capsule 03/25/15 09/10/16 Rx Cap/Tab] Amiodarone HCl 100 mg PO DAILY 05/20/15 09/10/16 History Albuterol Sulfate [Proair HFA] 2 puff INH Q6H PRN 03/13/16 09/10/16 History Alprazolam [Xanax] 1 tablet PO BID 03/13/16 09/10/16 History Cholecalciferol (Vitamin D3) 5,000 unit PO DAILY 03/13/16 09/10/16 History [Vitamin D3] Multivitamin [Multivitamins] 1 tablet PO DAILY 03/13/16 09/10/16 History raNITIdine HCl [Ranitidine HCl] 1 tablet PO BEDTIME 03/13/16 09/10/16 History predniSONE TAB [PredniSONE] 20 mg PO DAILY #20 tablet 04/05/16 09/10/16 Rx Allergies/Adverse Reactions: Allergies Allergy/AdvReac Type Severity Reaction Status Date / Time No Known Allergies Allergy Verified 09/09/16 20:25 - Constitutional Constitutional: Present: fever(s) (on admission; currently afebrila). Absent: anorexia, chills, daytime sleepiness, excessive sweating, frequent falls, stops breathing during sleep, weight gain, weight loss - EENT Eyes: Absent: blurry vision, diplopia, loss of vision Ears: Absent: decreased hearing, ear discharge, ear pain Nose, mouth and throat: Present: dysphagia, neck pain. Absent: epistaxis, headache(s), lip swelling, nasal congestion, sore throat, throat swelling, tongue swelling, vertigo - Cardiovascular Cardiovascular: Present: dyspnea on exertion (r/t COPD). Absent: chest pain at rest, chest pain with activity, claudication, diaphoresis, dyspnea, edema, radiating jaw, neck or arm pain, lightheadedness, orthopnea, palpitations, PND - Respiratory Respiratory: Present: cough, dyspnea on exertion. Absent: dyspnea, hemoptysis, wheezing, snoring, change in phlegm color - Gastrointestinal Gastrointestinal: Absent: abdominal pain, coffee ground emesis, constipation, diarrhea, dyspepsia, early satiety, fecal incontinence, heartburn, melena, nausea, vomiting, jaundice - Genitourinary Genitourinary: Absent: dysuria, flank pain, hematuria - Musculoskeletal Musculoskeletal: Present: limited range of motion - Neurological Neurological: Absent: abnormal gait, abnormal speech, confusion, convulsions, dizziness, frequent falls, numbness, radicular pain, syncope, tremor(s) - Psychiatric Psychiatric: Absent: anxiety, confusion, depression - Endocrine Endocrine: Absent: cold intolerance, fatigue, heat intolerance, polydipsia - Hematologic/Lymphatic Hematologic/Lymphatic: Absent: easy bleeding, easy bruising Medical,Surgical,& Family Hx - Medical History Cardio: History of: Cardiac Dysrhythmia (paroxsymal atrial fib), CAD (Coronary bypass graft), Hypertension, NC No history of: Pacemaker, PVD, Valvular Heart Disease Psychological: History of: Anxiety Disorders, Depression Neurology: No history of: Dementia, Migraine, Seizures, TIA, Vertigo HEENT: History of: Ear Problem, Dental Problems (upper denture plate) No history of: Oral Cancer Endocrine: History of: Diabetes Mellitus (NIDDM), Dyslipidemia, Thyroid Disorder (hypothryroidism) Rheumatology: History of;: Rheumatological Problems Respiratory: History of: COPD (SOB), Intubation, Pneumonia No history of: Pulmonary Hypertension Genitourinary: History of: Recurring Urinary Tract Infections, Problems No history of: Prostate Problems Gastrointestinal: History of: GERD, Hemorrhoids No history of: Hepatitis Musculoskeletal: History of: Back/Neck Problems, Degenerative Disk Disease, Herniated Disk, Musculoskeletal Problems Hematology: No history of: Bleeding Problems, Hematologic Cancer Other: History of: MRSA - Surgical History Cardiac Surgeries: Sugical HX of: Cardiac Catheterization (triple vessel disease 03/2014), Cardiac Surgery (CABG x 4 03/2014) Patient Denies: Carotid Endarterectomy, Internal Defibrillator Abdominal Surgeries: Surgical HX of: Appendectomy, EGD Reproductive Surgeries: Patient denies;: Prostate Surgery Orthopedic Surgeries: Surgical HX of;: Orthopedic Surgery (bilateral knee arthroscopy) Additional Surgical History: tracheotomy - Family History Family History: Reports;: Family Cancer (father), Family Diabetes (father), Family Heart Disease (mother, grandmother), Family Hypertension (mother, father) , Family Psychiatric Problems (brother), Family Stroke (grandmother), Additional Family History - Social History Smoking Status: Former smoker Frequency of Alcohol Use: Unknown Type of Drug Use: Unknown Marital Status: Lives With:: Spouse Functional capacity: independent ambulation Physical Examination Vital Signs Temp Pulse Resp BP Pulse Ox 100.6 F H 100 H 20 120/77 86 L 09/09/16 20:31 09/09/16 20:31 09/09/16 20:31 09/09/16 20:31 09/09/16 20:31 General: Present: No Apparent Distress, Other (obese) HEENT: Present: Pallor, PERRL, Mucus Membranes Moist. Absent: Jaundice Neck: Present: Supple Neck, Midline Trachea, Other (scar from previous tracheotomy) Cardiac: Present: Reg Rate and Rhythm, No Murmur. Absent: Tachycardia, Bradycardia Lungs: Present: Normal Exam, Scattered Rhonchi (throughout), Oxygen (2L/NC), No Wheezes, No Rales Neuro: Present: Grossly Intact. Absent: Weakness, Resting Tremor Abdomen: Present: Soft, Active Bowel Sounds, No Masses, No Pulsations/Bruits, Other (obese). Absent: Tender, Firm, Distended Skin: Present: Other (healing abrasion lateral aspect RLE, defect sternal area r /t previous sternal infection, right forearm wrapped with sx dsg from removal of malignancy approx 1 week ago) Extremities: Present: No Clubbing, No Cyanosis, Normal Upper Extr. Pulses, Normal Lower Extr. Pulses, Edema (trace pretibial), Capillary Refill (normal) Result/EKG - Labs CBC & BMP: 09/11/16 03:21 09/11/16 03:21 Lab Results: I have reviewed the past 24 hour labs Labs: Laboratory Results - last 24 hr 09/10/16 09/10/16 09/11/16 14:45 19:59 03:21 WBC 12.7 H RBC 3.73 L Hgb 10.6 L Hct 33.7 L MCV 90.3 MCH 28 MCHC 31.5 L RDW 13.1 Plt Count 148 MPV 11.9 Neut % (Auto) 88.7 H Lymph % (Auto) 7.1 L Kay % (Auto) 3.2 Eos % (Auto) 0.1 Baso % (Auto) 0.1 Neut # (Auto) 11.3 H Lymph # (Auto) 0.9 L Kay # (Auto) 0.4 Eos # (Auto) 0.0 Baso # (Auto) 0.0 Immature Gran % 0.8 Nucleated RBC % 0.0 Immature Gran # 0.10 Nucleated RBCs # 0.00 Sodium Potassium Chloride Carbon Dioxide Anion Gap BUN Creatinine GFR Calculation BUN/Creatinine Ratio Glucose POC Glucose 189 H 268 H Calculated Osmolality Calcium 09/11/16 09/11/16 09/11/16 03:21 07:48 12:34 WBC RBC Hgb Hct MCV MCH MCHC RDW Plt Count MPV Neut % (Auto) Lymph % (Auto) Kay % (Auto) Eos % (Auto) Baso % (Auto) Neut # (Auto) Lymph # (Auto) Kay # (Auto) Eos # (Auto) Baso # (Auto) Immature Gran % Nucleated RBC % Immature Gran # Nucleated RBCs # Sodium 144 Potassium 3.9 Chloride 104 Carbon Dioxide 30 Anion Gap 13.9 BUN 18 Creatinine 1.20 GFR Calculation 77 BUN/Creatinine Ratio 15.00 Glucose 180 H POC Glucose 187 H 228 H Calculated Osmolality 292.8 Calcium 8.5 - EKG EKG results: interpreted by me, WNL EKG shows: sinus rhythm (With APCs) IMiladis Shea, , personally performed the services described in this documentation, ascribed by Chelsey Tran RN in my presence, and it is both accurate and complete [id number] .
--- NOTE | 2016-09-11 17:22 | Oncology Progress Note ---
Oncology Subjective PN Interval history: Chart reviewed. Patient with possible H/O lung mass. Will discuss w/ Dr. Finley. Also H/O early melanoma of right forearm. Will discuss with Dr. Damian. I introduced myself to the patient and spoke with him briefly. I will check back tomorrow. Thanks. Exam - Constitutional Vitals: Period Temp Pulse Resp BP Sys/Ingram Pulse Ox Last 24 Hr 97.5 F-97.9 F 61-72 14-25 96-117/46-68 91-98 Results - Labs CBC & BMP: 09/11/16 03:21 09/11/16 03:21
[2016-09-11] MEDS: guaiFENesin/CODEINE 5 ML LIQUID PO PRN (18:35)
[2016-09-11] MEDS: FAMOTIDINE 20 MG TABLET PO SCH (22:14)
[2016-09-11] MEDS: ZALEPLON 5 MG CAPSULE PO SCH (22:14)
[2016-09-11] MEDS: VANCOMYCIN INJ 1,500 MG in SODIUM CHLORIDE 0.9% 500 ML IV SCH (22:19)
[2016-09-12] MEDS: guaiFENesin/CODEINE 5 ML LIQUID PO PRN ×3 (00:58→23:56)
[2016-09-12] MEDS: ALBUTEROL/IPRATROPIUM 3 ML NEB RESP TX SCH ×4 (01:37→19:00)
[2016-09-12] MEDS: MORPHINE ER 30 MG TABLET PO SCH ×2 (02:58→14:50)
[2016-09-12] MEDS: cefTRIAXone 2,000 MG in SODIUM CHLORIDE 0.9% 100 ML IV SCH ×2 (03:00→22:18)
[2016-09-12] MEDS: LEVOTHYROXINE 50 MCG TABLET PO SCH (06:28)
[2016-09-12 06:51] LABS: Basophils % 0.1 % (0.0-0.8); Hematocrit 33.2 VOL% (42.0-52.0); Hemoglobin 10.4 GM/DL (14.0-18.0); Immature Granulocytes % 3.1 %; Immature Granulocytes Absolute 0.52 #; Lymphocytes # 0.9 10*3/uL (1.4-4.0); Lymphocytes % 5.2 % (21.2-54.2); Mean Corpuscular HGB Conc 31.3 GM/DL (32-36); Mean Corpuscular Hemoglobin 28 PG (27-34); Mean Corpuscular Volume 89.7 FL (87-102); Mean Platelet Volume 12.2 FL (9.6-12.0); Monocytes # 0.7 10*3/uL (0.11-0.8); Neutrophils # 14.6 10*3/uL (1.4-7.4); Neutrophils % 87.6 % (38.7-73.9); Platelet Count 177 T/CUMM (130-400); Red Cell Distribution Width 13.2 % (9.3-17.3); White Blood Count 16.7 T/CUMM (4-12)
[2016-09-12 07:11] LABS: Calcium 8.2 MG/DL (8.5-10.1); Potassium 4.2 MMOL/L (3.5-5.1)
[2016-09-12 07:13] LABS: Band Neutrophils 7 % (0-10); Hypochromasia 1+; Lymphocytes 10 % (20-55); Segmented Neutrophils 82 % (50-85); Total Cells Counted 100
[2016-09-12 07:14] LABS: Microcytosis 1+
[2016-09-12] MEDS: methylPREDNISolone SOD SUC 40 MG/1 ML VIAL IV SCH ×2 (08:46→22:18)
[2016-09-12] MEDS: MULTIVITAMIN (CENTRUM) TABLET PO SCH (08:46)
[2016-09-12] MEDS: ENOXAPARIN 40 MG/0.4 ML SYRINGE SUBCUT SCH (08:46)
[2016-09-12] MEDS: ATORVASTATIN 20 MG TABLET PO SCH (08:47)
[2016-09-12] MEDS: PANTOPRAZOLE 40 MG TABLET PO SCH (08:47)
[2016-09-12] MEDS: ALPRAZolam 0.5 MG TABLET PO SCH ×2 (08:47→20:57)
[2016-09-12] MEDS: CHOLECALCIFEROL 1,000 UNIT TABLET PO SCH (08:47)
[2016-09-12] MEDS: GABAPENTIN 300 MG CAPSULE PO SCH ×2 (08:48→14:50)
[2016-09-12] MEDS: AMIODARONE 200 MG TABLET PO SCH (08:48)
[2016-09-12] MEDS: INSULIN REGULAR 100 UNIT/ML SUBCUT SCH ×4 (08:49→20:55)
[2016-09-12] MEDS: ESCITALOPRAM 10 MG TABLET PO SCH (08:49)
--- NOTE | 2016-09-12 08:54 | Pulmonology Progress Note ---
Pulmonary - PN: Subj Interval history: This 61-year-old white male has COPD. He had a recent surgery on his right arm having a melanoma removed. Apparently was taking some pain medication and had an increased cough congestion shortness of breath and bronchopneumonia. Decreased level of consciousness. He came into the hospital and is now doing much better. We're withholding the pain medication somewhat. He's gotten antibiotics for his bronchopneumonia. I would suggest another couple days of IV medicines. He needs follow-up on his arm surgery by Dr. Damian. Patient had an episode where occult he coughing up phlegm last night. I will add Pulmozyme. If that doesn't may need to bronchoscope him. Continue with Solu-Medrol and bronchodilators for now. He had a melanoma removed from his arm. Dr. Hoover is evaluating for that. The left upper lobe lung lesion has almost totally resolved and was a slowly resolving pneumonia. Exam (Progress Note) - Constitutional Vitals: Period Temp Pulse Resp BP Sys/Ingram Pulse Ox Last 24 Hr 97.5 F-97.9 F 61-72 16-25 108-134/53-68 91-98 Exam: Patient is alert and oriented. Vital signs normal. Pupils react to light. Throat is clear. Neck supple no bruits. Chest minimal rhonchi equal breath sounds. Heart normal rate rhythm no murmurs. He has a defect over his sternum from previous sternal infection with debridement. Abdomen soft nontender no masses. Bowel sounds present. Extremities no clubbing cyanosis or edema. Calves nontender. Little change from yesterday. Results - Labs CBC & BMP: 09/12/16 06:24 09/12/16 06:24 Lab Results: I have reviewed the past 24 hour labs Assessment and Plan (1) Bronchopneumonia Status: Acute Assessment and plan: Fever cough elevated white count and patchy infiltrate in the right lower lobe on x-ray. Agree with current antibiotics. He is being covered for possible meningitis as well with these antibiotics. Await spinal tap reports. 09/11/2016 continuing antibiotics for bronchopneumonia. 09/12/16 continuing antibiotics for bronchopneumonia. He has retained thick secretions which should get better with bronchodilators and Pulmozyme. Cannot Reduce steroids yet. Current Visit: Yes (2) Altered mental status, unspecified Status: Acute Assessment and plan: Patient is more alert this morning. I suspect it was a combination of his acute febrile illness and his chronic pain medications that caused the confusion and hallucinations. However a neurology evaluation would be helpful. Brain CT did not show anything specific. Family assures me that one of his sons supervises his pain medications. 09/11/2016 suspect his altered mental status was an interaction between exacerbation of his COPD, bronchopneumonia, and pain medications. 09/12/16 status is better. Neurology note appreciated. Findings said to be suggestive of aseptic meningitis. Unclear as to how long to treat with antibiotics for this. Current Visit: Yes (3) recent melanoma removal Status: Acute Assessment and plan: Dr. José Miguel Damian removed a melanoma from his right arm last week. This needs following up during this hospitalization. 09/12/16 Dr. oHover is seen. Await consult from Dr. Damian. Patient was due to see him back in the clinic earlier this week for follow-up of the arm surgery. Current Visit: Yes (4) Chronic obstructive pulmonary disease with bronchospasm Status: Chronic Assessment and plan: Will treat with low-dose IV STEROIDS as well as bronchodilators and antibiotics. We need to check ABGs to be sure he is not having CO2 narcosis. 09/11/2016 continuing above medications. ABG showed up PO2 78 PCO2 44 pH 7.44 on 2 L oxygen. No significant CO2 retention. 09/12/16 continuing with steroids antibiotics bronchodilators. Glucoses are a little high because of the steroids. Current Visit: No
[2016-09-12] MEDS ORDERED: APIXABAN 5 MG TABLET PO SCH (09:00)
--- NOTE | 2016-09-12 09:42 | Oncology Progress Note ---
Oncology Subjective PN Interval history: I have reviewed Dr. Finley note from today. It is fairly obvious that he does not think there is any concern for a pulmonary malignancy. The patient's melanoma is evidently a very early melanoma. I have not talked to Dr. Damian about it yet but I will. However, I doubt that he will require anything other than close observation. Certainly there is no indication for adjuvant therapy at this point for an early melanoma. I will check back tomorrow. Thank you. Exam - Constitutional Vitals: Period Temp Pulse Resp BP Sys/Ingram Pulse Ox Last 24 Hr 97.5 F-97.9 F 61-72 16-25 108-134/53-68 91-98 Results - Labs CBC & BMP: 09/12/16 06:24 09/12/16 06:24
[2016-09-12] MEDS: VANCOMYCIN INJ 1,500 MG in SODIUM CHLORIDE 0.9% 500 ML IV SCH ×2 (09:51→22:56)
--- NOTE | 2016-09-12 11:38 | Hospitalist Progress Note ---
Assessment and Plan (1) Aseptic meningitis Status: Acute Assessment and plan: CSF analysis revealed WBC 19, lymphocytes 74% and protein 53 which consistent with a septic meningitis Allergies following, appreciate their assistance Continue Rocephin IV Blood cultures negative Current Visit: Yes (2) Altered mental status, unspecified Status: Acute Assessment and plan: Resolved Current Visit: Yes (3) Bronchopneumonia Status: Acute Assessment and plan: Currently on Rocephin and vancomycin On high-dose of steroids, nebs and pulmozyme May need bronchoscopy if no improvement Appreciate pulmonary assistance Current Visit: Yes (4) Leukocytosis Status: Acute Assessment and plan: Likely due to high dose of steroids afebrile Current Visit: Yes (5) Pneumonia Status: Acute Assessment and plan: Right lower lobe pneumonia Continue IV antibiotics bebs q 4 Current Visit: Yes (6) recent melanoma removal Status: Acute Assessment and plan: dr Oakes was consulted Current Visit: Yes (7) Paroxysmal atrial fibrillation Status: Chronic Assessment and plan: Cardiology was consulted Recommendations 5 mg eliquis BID dc lovenox Current Visit: No (8) Neck pain Status: Acute Assessment and plan: Patient complaining of severe neck pain He is currently on [place] 10 mg as needed every 4 hours and morphine 15 mg twice daily pain is not controlled We will consult pain management is Dr. Gaspar Current Visit: Yes Hospitalist: Subjective Interval history: 51 years old white male who presented with altered mental status and encephalopathy and was found to have a septic meningitis. Apparently had some shortness of breath with cough and developed bronchopneumonia. Started on treatment with Rocephin and vancomycin. He recently had right arm melanoma removal and Dr. Damian was consulted. Pulmonary were consulted in regards of pneumonia and shortness of breath. Neurology was consulted in regards of altered mental status and abnormal brain MRI. Neurology consulted for Eliquis assistance.Recently started on Pulmozine, a high dose of Solu-Medrol and DuoNeb' s treatment with bronchopneumonia. From medical records, initially she had suspicion for pulmonary cancer which was ruled out. His brain MRI-without significant abnormalities. CSF was done in the ER which revealed elevated WBC 19, lymphocytes 74% and protein 53 -aseptic meningitis. Today: Patient is alert and oriented, she denies any complaints except dry cough. He complains of severe neck pain. Currently on morphine 15 mg twice daily and [place] 10 mg every 4 hours as needed. States that his pain not controlled. He is on pain management with Dr. Gaspar. Exam - Constitutional Vitals: Period Temp Pulse Resp BP Sys/Ingram Pulse Ox Last 24 Hr 97.5 F-97.9 F 61-72 16-25 108-134/53-68 91-98 General appearance: normal weight, no acute distress - Head Head exam: Present: normal inspection, normocephalic, atraumatic - Eye Eye exam: Present: EOMI Pupils: Present: ANGELICA - ENT ENT exam: Present: normal exam - Neck Neck exam: Present: normal inspection - Respiratory Respiratory exam: Present: decreased breath sounds, wheezes - Cardiovascular Cardiovascular exam: Present: irregular rhythm, regular rate and rhythm - GI/Abdominal GI/Abdominal exam: Present: normal bowel sounds, soft - Extremities Exam Extremities exam: Present: normal inspection - Neurological Exam Neurological exam: Present: alert, oriented X3, normal gait - Psychiatric Psychiatric exam: Present: normal affect, normal mood - Skin Skin exam: Present: normal color, warm Results - Labs CBC & BMP: 09/12/16 06:24 09/12/16 06:24
--- NOTE | 2016-09-12 17:30 | Neurology Progress Note ---
Neurology - PN : Subjective Interval history: Patient seems to be improving every day. No new possible. No headaches reported. Getting up and walk around. Gram stains and cultures are all negative. I don't think this is bacterial meningitis. He may had viral meningitis. We'll cutback on Rocephin. Exam (Progress Note) - Constitutional Vitals: Period Temp Pulse Resp BP Sys/Ingram Pulse Ox Last 24 Hr 97.6 F-97.9 F 68-77 16-25 114-134/60-73 91-99 Exam: GENERAL: Patient is in no acute distress. NECK: Neck is supple. There is no JVD. No carotid bruits present. No thyroid masses. CVS: First and second heart sounds are normal. There is no S3 present. Regular rate and rhythm. RESPIRATORY: Lungs are clear to auscultation without any rales or rhonchi. ABDOMEN: Soft and non-tender. Bowel sounds are present. There is no hepatosplenomegaly. EXT: There is no palpable edema. Peripheral pulses are present. Skin: No rashes Central Nervous system: General: Alert, awake and Oriented x 3 Speech: Fluent Comprehension: Intact and normal Facial expressions: Normal Cranial Nerves: CN1/Olfactory: Normal CN II/ Optic: Normal, Visual Arnold unreliable CN III, and : ANGELICA & EOMI CN V: Normal & intact CN VII: face is symmetric CNVIII: Normal CN XI/X/XI/XII: Intact and Normal Motor: Bulk and Tone is normal. Strength in the right 4/5 Strength in the left 4/5 Sensory: Grossly intact for all the modalities of PP, LT and temp sense Reflexes: 1+ and symmetrical Cerebellar function: Normal finger to nose and heel to christine testing. Gait: No tested at this time Results - Labs CBC & BMP: 09/12/16 06:24 09/12/16 06:24 Assessment and Plan (1) Altered mental status, unspecified Status: Acute Assessment and plan: Change Rocephin to 2 g IV daily Current Visit: Yes
--- NOTE | 2016-09-12 18:07 | Pain Management Consult Note ---
Assessment and Plan (1) Cervical spondylitis with radiculitis Problem details: Long-standing neck pain with radiation into the upper extremities undergone FLAIR Status: Acute Assessment and plan: 09/12/2016. The patient has long-standing neck pain. MRI demonstrates multilevel degenerative changes and disc herniation. He has associated cervical radiculitis. Because of the significant pulmonary disease, chronic steroid use, anticoagulation, and recent infection he is not a candidate for cervical epidural steroid injection. At this point we'll continue treatment medically and with modalities. y Current Visit: Yes (2) Lumbar degenerative disc disease Problem details: Long-standing low back pain Status: Acute Assessment and plan: Long-standing low back pain with lumbar degenerative disc disease Current Visit: Yes (3) Narcotic dependence Problem details: Long-term opioid use Status: Acute Assessment and plan: The patient is on opioids long-term. At this point I do not see any need for IV opioids even though he is asking for these. I would avoid these given his pulmonary status and recent neurologic status change. I have seen this patient over the years multiple times in the hospital and at each visit he asked for IV narcotics. Again, this patient is high risk for IV narcotics and would recommend avoiding these. Current Visit: Yes History of Present Illness Chief complaint: neck pain History of present illness: Mr. Francois is a 61 year old male well known to me with long-standing neck and low back pain. He's been on medical management through our clinic for many years. He reports worsening of his neck pain over the past several weeks. The neck pain is a throbbing aching constant pain that radiates into both arms. Home Medications Medication Instructions Recorded Confirmed Type Atorvastatin [Lipitor] 20 mg PO DAILY 03/23/15 09/10/16 History Escitalopram [Lexapro] 20 mg PO DAILY 03/23/15 09/10/16 History Fluticasone/Vilanterol [Breo 1 puff PO DAILY 03/23/15 09/10/16 History Ellipta 100-25 Mcg INH] Hydrocodone/Acetaminophen 1 tablet PO Q8HR 03/23/15 09/10/16 History [Hydrocodon-Acetaminophn 10-325] Levothyroxine Tab [Synthroid Tab] 50 mcg PO DAILY 03/23/15 09/10/16 History Morphine ER Tab [Ms Contin] 30 mg PO Q12H 03/23/15 09/10/16 History Zolpidem [Ambien] 10 mg PO BEDTIME 03/23/15 09/10/16 History glipiZIDE [Glipizide] 5 mg PO DAILY 03/23/15 09/10/16 History Gabapentin Cap/Tab [Neurontin 300 mg PO TID #90 capsule 03/25/15 09/10/16 Rx Cap/Tab] Amiodarone HCl 100 mg PO DAILY 05/20/15 09/10/16 History Albuterol Sulfate [Proair HFA] 2 puff INH Q6H PRN 03/13/16 09/10/16 History Alprazolam [Xanax] 1 tablet PO BID 03/13/16 09/10/16 History Cholecalciferol (Vitamin D3) 5,000 unit PO DAILY 03/13/16 09/10/16 History [Vitamin D3] Multivitamin [Multivitamins] 1 tablet PO DAILY 03/13/16 09/10/16 History raNITIdine HCl [Ranitidine HCl] 1 tablet PO BEDTIME 03/13/16 09/10/16 History predniSONE TAB [PredniSONE] 20 mg PO DAILY #20 tablet 04/05/16 09/10/16 Rx Allergies Allergy/AdvReac Type Severity Reaction Status Date / Time No Known Allergies Allergy Verified 09/09/16 20:25 Medical,Surgical,& Family Hx - Medical History Cardio: History of: Cardiac Dysrhythmia (a fib), CAD, Hypertension, ID No history of: Pacemaker, PVD, Valvular Heart Disease Psychological: History of: Anxiety Disorders, Depression Neurology: No history of: Dementia, Migraine, Seizures, TIA, Vertigo HEENT: History of: Ear Problem, Dental Problems (WEARS TOP DENTURES, NATURAL BOTTOM TEETH) No history of: Oral Cancer Endocrine: History of: Diabetes Mellitus (NIDDM), Dyslipidemia, Thyroid Disorder Rheumatology: History of;: Rheumatological Problems Respiratory: History of: COPD (SOB), Intubation, Pneumonia No history of: Pulmonary Hypertension Comment Only: Lung Cancer (POSSIBLE) Genitourinary: History of: Recurring Urinary Tract Infections, Problems ( HARD TO URINATE AT TIMES) No history of: Prostate Problems Gastrointestinal: History of: GERD, Hemorrhoids No history of: Hepatitis Musculoskeletal: History of: Back/Neck Problems, Degenerative Disk Disease, Herniated Disk, Musculoskeletal Problems Hematology: No history of: Bleeding Problems, Hematologic Cancer Other: History of: Cancer (POSSIBLE LUNG), MRSA - Surgical History Cardiac Surgeries: Sugical HX of: Cardiac Catheterization, Cardiac Surgery ( CABG a year ago) Patient Denies: Carotid Endarterectomy, Internal Defibrillator HEENT Surgeries: Patient denies: Carotid Endarterectomy Abdominal Surgeries: Surgical HX of: Appendectomy, EGD Reproductive Surgeries: Patient denies;: Prostate Surgery Orthopedic Surgeries: Surgical HX of;: Orthopedic Surgery (3 KNEE SCOPES R ELBOW ) - Family History Family History: Reports;: Family Cancer (DAD), Family Diabetes (DAD), Family Heart Disease (MOM GRANDMOTHER), Family Hematology (UNSURE WHAT), Family Hypertension (MOM,DAD), Family Psychiatric Problems (BROTHER), Family Stroke ( GRANDMOTHER) Denies;: Additional Family History - Social History Smoking Status: Former smoker Frequency of Alcohol Use: Unknown Type of Drug Use: Unknown - Constitutional Constitutional: Present: daytime sleepiness, fatigue, lethargy - EENT Nose, mouth and throat: Present: hoarseness - Cardiovascular Cardiovascular: Present: dyspnea on exertion - Respiratory Respiratory: Present: dyspnea on exertion - Gastrointestinal Gastrointestinal: Present: constipation - Musculoskeletal Musculoskeletal: Present: arthralgias, back pain, muscle cramps - Neurological Neurological: Present: numbness, paresthesias Exam - Constitutional Vitals: Period Temp Pulse Resp BP Sys/Ingram Pulse Ox Last 24 Hr 97.6 F-97.9 F 68-77 16-25 114-134/60-73 91-99 General appearance: normal weight - Head Head exam: Present: normal inspection - Eye Eye exam: Present: EOMI - Neck Neck exam: Present: tenderness - Respiratory Respiratory exam: Present: chest wall tenderness, rhonchi - Cardiovascular Cardiovascular exam: Present: RRR - GI/Abdominal GI/Abdominal exam: Present: hypoactive bowel sounds - Back Exam Back exam: Present: vertebral tenderness - Neurological Exam Neurological exam: Present: alert, oriented X3, abnormal gait, motor sensory deficit (decreased C5 6 dermatomal sensation bilateral) - Skin Skin exam: Present: dry Results - Labs CBC & BMP: 09/12/16 06:24 09/12/16 06:24
[2016-09-12] MEDS: DORNASE ALFA 2.5 MG/2.5 ML VIAL RESP TX SCH (19:05)
[2016-09-12] MEDS: ZALEPLON 5 MG CAPSULE PO SCH (20:56)
[2016-09-12] MEDS: APIXABAN 5 MG TABLET PO SCH (20:57)
[2016-09-12] MEDS: GABAPENTIN 400 MG CAPSULE PO SCH (20:57)
[2016-09-12] MEDS: FAMOTIDINE 20 MG TABLET PO SCH (20:57)
[2016-09-13] MEDS: ALBUTEROL/IPRATROPIUM 3 ML NEB RESP TX SCH ×4 (00:33→19:16)
[2016-09-13] MEDS: MORPHINE ER 30 MG TABLET PO SCH ×2 (03:20→15:12)
[2016-09-13 05:58] LABS: Basophils % 0.1 % (0.0-0.8); Hematocrit 32.1 VOL% (42.0-52.0); Hemoglobin 10.3 GM/DL (14.0-18.0); Immature Granulocytes % 5.1 %; Immature Granulocytes Absolute 0.66 #; Lymphocytes # 0.9 10*3/uL (1.4-4.0); Lymphocytes % 6.9 % (21.2-54.2); Mean Corpuscular HGB Conc 32.1 GM/DL (32-36); Mean Corpuscular Hemoglobin 28 PG (27-34); Mean Corpuscular Volume 88.2 FL (87-102); Mean Platelet Volume 12.6 FL (9.6-12.0); Monocytes # 0.6 10*3/uL (0.11-0.8); Monocytes % 4.6 % (1.7-12.7); Neutrophils # 10.9 10*3/uL (1.4-7.4); Neutrophils % 83.3 % (38.7-73.9); Platelet Count 152 T/CUMM (130-400); Red Blood Count 3.64 MC/CUMM (3.8-5.5); Red Cell Distribution Width 13.3 % (9.3-17.3); White Blood Count 13.1 T/CUMM (4-12)
[2016-09-13 06:33] LABS: Calcium 8.2 MG/DL (8.5-10.1); Osmolality,Calculated 298.6 MOS/KG (273-304); Potassium 4.2 MMOL/L (3.5-5.1)
[2016-09-13 06:38] LABS: Band Neutrophils 1 % (0-10); Hypochromasia 1+; Lymphocytes 7 % (20-55); Ovalocytes Slight; Platelet Estimate Normal; Segmented Neutrophils 87 % (50-85); Total Cells Counted 100
[2016-09-13 06:39] LABS: Microcytosis 1+
[2016-09-13] MEDS: LEVOTHYROXINE 50 MCG TABLET PO SCH (06:45)
[2016-09-13] MEDS: DORNASE ALFA 2.5 MG/2.5 ML VIAL RESP TX SCH ×2 (07:04→19:31)
[2016-09-13] MEDS: INSULIN REGULAR 100 UNIT/ML SUBCUT SCH ×4 (08:47→22:25)
[2016-09-13] MEDS: CHOLECALCIFEROL 1,000 UNIT TABLET PO SCH (08:49)
[2016-09-13] MEDS: AMIODARONE 200 MG TABLET PO SCH (08:51)
[2016-09-13] MEDS: MULTIVITAMIN (CENTRUM) TABLET PO SCH (08:51)
[2016-09-13] MEDS: APIXABAN 5 MG TABLET PO SCH ×2 (08:53→22:22)
[2016-09-13] MEDS: ESCITALOPRAM 10 MG TABLET PO SCH (08:53)
[2016-09-13] MEDS: ATORVASTATIN 20 MG TABLET PO SCH (08:55)
[2016-09-13] MEDS: GABAPENTIN 400 MG CAPSULE PO SCH ×3 (08:55→22:22)
[2016-09-13] MEDS: ALPRAZolam 0.5 MG TABLET PO SCH ×2 (08:56→22:22)
[2016-09-13] MEDS: PANTOPRAZOLE 40 MG TABLET PO SCH (08:56)
[2016-09-13] MEDS: guaiFENesin/CODEINE 5 ML LIQUID PO PRN ×2 (08:57→17:32)
[2016-09-13] MEDS: methylPREDNISolone SOD SUC 40 MG/1 ML VIAL IV SCH ×3 (09:22→22:23)
[2016-09-13] MEDS: VANCOMYCIN INJ 1,500 MG in SODIUM CHLORIDE 0.9% 500 ML IV SCH (09:28)
--- NOTE | 2016-09-13 10:44 | Hospitalist Progress Note ---
Assessment and Plan (1) Aseptic meningitis Status: Acute Assessment and plan: CSF analysis revealed WBC 19, lymphocytes 74% and protein 53 which consistent with aseptic meningitis neurology following, appreciate their assistance Continue Rocephin IV- 2 mg IV daily Blood cultures negative for 3 days, CSF culture - neg for 72 hrs will check with neurology how long pt needs to be on this regimen before he can be dced Current Visit: Yes (2) Altered mental status, unspecified Status: Acute Assessment and plan: Resolved Current Visit: Yes (3) Bronchopneumonia Status: Acute Assessment and plan: Currently on Rocephin and vancomycin On high-dose of steroids, start titrate down to 20 mg BID, cont nebs and pulmozyme improvement with secretion and cough Appreciate pulmonary assistance Current Visit: Yes (4) Leukocytosis Status: Acute Assessment and plan: Likely due to high dose of steroids afebrile Current Visit: Yes (5) Pneumonia Status: Acute Assessment and plan: Right lower lobe pneumonia Continue IV antibiotics with rocephin and vanc nebs q 4 Current Visit: Yes (6) recent melanoma removal Status: Acute Assessment and plan: dr Oakes was consulted dressing is off recs- clean with soap and water Current Visit: Yes (7) Paroxysmal atrial fibrillation Status: Chronic Assessment and plan: Cardiology was consulted Recommendations 5 mg eliquis BID dc lovenox Current Visit: No (8) Neck pain Status: Acute Assessment and plan: Patient complaining of severe neck pain He is currently on [place] 10 mg as needed every 4 hours and morphine 15 mg twice daily pain is not controlled Dr. Gaspar consulted- no IV meds recommended Current Visit: Yes Hospitalist: Subjective Interval history: 51 years old white male who presented with altered mental status and encephalopathy and was found to have aseptic meningitis. Apparently had some shortness of breath with cough and developed bronchopneumonia. Started on treatment with Rocephin and vancomycin. He recently had right arm melanoma removal and Dr. Damian was consulted. Pulmonary were consulted in regards of pneumonia and shortness of breath. Neurology was consulted in regards of altered mental status and abnormal brain MRI. Neurology consulted for Eliquis assistance.Recently started on Pulmozine, a high dose of Solu-Medrol and DuoNeb' s treatment with bronchopneumonia. From medical records, initially she had suspicion for pulmonary cancer which was ruled out. His brain MRI-without significant abnormalities. CSF was done in the ER which revealed elevated WBC 19, lymphocytes 74% and protein 53 -aseptic meningitis. Today: Patient is alert and oriented, she denies any complains. Cough is improving. Dr. Gaspar, pain management was consulted. Recommended no IV pain meds. Exam - Constitutional Vitals: Period Temp Pulse Resp BP Sys/Ingram Pulse Ox Last 24 Hr 97.7 F-98.3 F 59-77 16-20 127-149/65-84 92-99 General appearance: normal weight, no acute distress - Head Head exam: Present: normal inspection, normocephalic, atraumatic - Eye Eye exam: Present: EOMI Pupils: Present: ANGELICA - ENT ENT exam: Present: normal exam - Neck Neck exam: Present: normal inspection - Respiratory Respiratory exam: Present: decreased breath sounds - Cardiovascular Cardiovascular exam: Present: regular rate and rhythm - GI/Abdominal GI/Abdominal exam: Present: normal bowel sounds, soft - Extremities Exam Extremities exam: Present: normal inspection, normal capillary refill - Neurological Exam Neurological exam: Present: alert, oriented X3, normal gait - Psychiatric Psychiatric exam: Present: normal affect, normal mood - Skin Skin exam: Present: normal color, warm, dry Results - Labs CBC & BMP: 09/13/16 05:28 09/13/16 05:28
--- NOTE | 2016-09-13 11:40 | Pulmonology Progress Note ---
Pulmonary - PN: Subj Interval history: This 61-year-old white male has COPD. He had a recent surgery on his right arm having a melanoma removed. Apparently was taking some pain medication and had an increased cough congestion shortness of breath and bronchopneumonia. Decreased level of consciousness. He came into the hospital and is now doing much better. We're withholding the pain medication somewhat. He's gotten antibiotics for his bronchopneumonia. I would suggest another couple days of IV medicines. He needs follow-up on his arm surgery by Dr. Damian. Patient had an episode where occult he coughing up phlegm last night. I will add Pulmozyme. If that doesn't may need to bronchoscope him. Continue with Solu-Medrol and bronchodilators for now. He had a melanoma removed from his arm. Dr. Hoover is evaluating for that. The left upper lobe lung lesion has almost totally resolved and was a slowly resolving pneumonia. 09-13-16 patient is feeling better. He's coughing up sputum now. Probably can decrease medications tomorrow but he's not ready for discharge yet. He has pretty severe COPD with superimposed bronchitis and bronchopneumonia. Exam (Progress Note) - Constitutional Vitals: Period Temp Pulse Resp BP Sys/Ingram Pulse Ox Last 24 Hr 97.7 F-98.3 F 59-77 16-20 127-149/65-84 92-99 Exam: Patient is alert and oriented. Vital signs normal. Pupils react to light. Throat is clear. Neck supple no bruits. Chest minimal rhonchi equal breath sounds. Heart normal rate rhythm no murmurs. He has a defect over his sternum from previous sternal infection with debridement. Abdomen soft nontender no masses. Bowel sounds present. Extremities no clubbing cyanosis or edema. Calves nontender. Sounds better than yesterday. Results - Labs CBC & BMP: 09/13/16 05:28 09/13/16 05:28 Lab Results: I have reviewed the past 24 hour labs Assessment and Plan (1) Bronchopneumonia Status: Acute Assessment and plan: Fever cough elevated white count and patchy infiltrate in the right lower lobe on x-ray. Agree with current antibiotics. He is being covered for possible meningitis as well with these antibiotics. Await spinal tap reports. 09/11/2016 continuing antibiotics for bronchopneumonia. 09/12/16 continuing antibiotics for bronchopneumonia. He has retained thick secretions which should get better with bronchodilators and Pulmozyme. Cannot Reduce steroids yet. 09/13/16 he is getting the sputum up a little better. I will decrease his steroids a little. Needs IV antibiotics a few more days. Current Visit: Yes (2) Altered mental status, unspecified Status: Acute Assessment and plan: Patient is more alert this morning. I suspect it was a combination of his acute febrile illness and his chronic pain medications that caused the confusion and hallucinations. However a neurology evaluation would be helpful. Brain CT did not show anything specific. Family assures me that one of his sons supervises his pain medications. 09/11/2016 suspect his altered mental status was an interaction between exacerbation of his COPD, bronchopneumonia, and pain medications. 09/12/16 status is better. Neurology note appreciated. Findings said to be suggestive of aseptic meningitis. Unclear as to how long to treat with antibiotics for this. 09/13/16 combination of chronic pain medications and superimposed bronchitis with bronchopneumonia and a chronic longer. Mental status has improved. Neurology does not feel that he has meningitis. Current Visit: Yes (3) recent melanoma removal Status: Acute Assessment and plan: Dr. José Miguel Damian removed a melanoma from his right arm last week. This needs following up during this hospitalization. 09/12/16 Dr. Hoover is seen. Await consult from Dr. Damian. Patient was due to see him back in the clinic earlier this week for follow-up of the arm surgery. 09-13-16 at some point needs follow up with the plastic surgeon that remove the melanoma, that would be Dr. Damian. Current Visit: Yes (4) Chronic obstructive pulmonary disease with bronchospasm Status: Chronic Assessment and plan: Will treat with low-dose IV STEROIDS as well as bronchodilators and antibiotics. We need to check ABGs to be sure he is not having CO2 narcosis. 09/11/2016 continuing above medications. ABG showed up PO2 78 PCO2 44 pH 7.44 on 2 L oxygen. No significant CO2 retention. 09/12/16 continuing with steroids antibiotics bronchodilators. Glucoses are a little high because of the steroids. 09/13/16 continuing IV medications and bronchodilators. We will reduce steroids a little. Current Visit: No
--- NOTE | 2016-09-13 12:47 | Pain Management Progress Note ---
Assessment and Plan (1) Cervical spondylitis with radiculitis Problem details: Long-standing neck pain with radiation into the upper extremities undergone FLAIR Status: Acute Assessment and plan: 09/13/2016. The patient continues have neck pain with some radiation of the upper extremity. MRI shows new disc protrusion. Will plan on cervical epidural steroid injection after discharge late next week which should give him enough time to recover from his bronchopneumonia. Overall he is doing better from that but continues have significant neck pain. y 09/12/2016. The patient has long-standing neck pain. MRI demonstrates multilevel degenerative changes and disc herniation. He has associated cervical radiculitis. Because of the significant pulmonary disease, chronic steroid use, anticoagulation, and recent infection he is not a candidate for cervical epidural steroid injection. At this point we'll continue treatment medically and with modalities. y Current Visit: Yes (2) Lumbar degenerative disc disease Problem details: Long-standing low back pain Status: Acute Assessment and plan: Long-standing low back pain with lumbar degenerative disc disease Current Visit: Yes (3) Narcotic dependence Problem details: Long-term opioid use Status: Acute Assessment and plan: The patient is on opioids long-term. At this point I do not see any need for IV opioids even though he is asking for these. I would avoid these given his pulmonary status and recent neurologic status change. I have seen this patient over the years multiple times in the hospital and at each visit he asked for IV narcotics. Again, this patient is high risk for IV narcotics and would recommend avoiding these. Current Visit: Yes Pain - Subjective Interval history: Continued neck pain Exam - Constitutional Vitals: Period Temp Pulse Resp BP Sys/Ingram Pulse Ox Last 24 Hr 97.7 F-98.3 F 59-77 16-20 127-149/65-84 92-99 General appearance: no acute distress - Neck Neck exam: Present: other (straightening) - Back Exam Back exam: Present: vertebral tenderness Results - Labs CBC & BMP: 09/13/16 05:28 09/13/16 05:28
[2016-09-13] MEDS: ZALEPLON 5 MG CAPSULE PO SCH (22:22)
[2016-09-13] MEDS: FAMOTIDINE 20 MG TABLET PO SCH (22:23)
[2016-09-13] MEDS: cefTRIAXone 2,000 MG in SODIUM CHLORIDE 0.9% 100 ML IV SCH (22:24)
[2016-09-14] MEDS: VANCOMYCIN INJ 1,500 MG in SODIUM CHLORIDE 0.9% 500 ML IV SCH ×2 (00:16→11:12)
[2016-09-14] MEDS: ALBUTEROL/IPRATROPIUM 3 ML NEB RESP TX SCH ×2 (00:33→07:10)
[2016-09-14] MEDS: MORPHINE ER 30 MG TABLET PO SCH (04:20)
[2016-09-14] MEDS: LEVOTHYROXINE 50 MCG TABLET PO SCH (06:11)
[2016-09-14] MEDS: DORNASE ALFA 2.5 MG/2.5 ML VIAL RESP TX SCH (07:10)
[2016-09-14 07:33] LABS: Basophils % 0.2 % (0.0-0.8); Hematocrit 33.2 VOL% (42.0-52.0); Hemoglobin 10.8 GM/DL (14.0-18.0); Immature Granulocytes Absolute 0.98 #; Lymphocytes % 7.1 % (21.2-54.2); Mean Corpuscular HGB Conc 32.5 GM/DL (32-36); Mean Corpuscular Hemoglobin 29 PG (27-34); Mean Corpuscular Volume 87.8 FL (87-102); Mean Platelet Volume 11.8 FL (9.6-12.0); Monocytes # 0.8 10*3/uL (0.11-0.8); Monocytes % 5.9 % (1.7-12.7); NRBC # 0.03 10*3/uL; Neutrophils # 11.2 10*3/uL (1.4-7.4); Neutrophils % 79.8 % (38.7-73.9); Platelet Count 188 T/CUMM (130-400); Red Blood Count 3.78 MC/CUMM (3.8-5.5); Red Cell Distribution Width 13.3 % (9.3-17.3)
[2016-09-14 08:03] LABS: Band Neutrophils 1 % (0-10); Hypochromasia 1+; Lymphocytes 12 % (20-55); Platelet Estimate Adequate; Segmented Neutrophils 81 % (50-85); Total Cells Counted 100
[2016-09-14 08:04] LABS: Microcytosis Slight
[2016-09-14 08:19] VITALS: BP 150/76
--- NOTE | 2016-09-14 08:46 | Pulmonology Progress Note ---
Pulmonary - PN: Subj Interval history: This 61-year-old white male has COPD. He had a recent surgery on his right arm having a melanoma removed. Apparently was taking some pain medication and had an increased cough congestion shortness of breath and bronchopneumonia. Decreased level of consciousness. He came into the hospital and is now doing much better. We're withholding the pain medication somewhat. He's gotten antibiotics for his bronchopneumonia. I would suggest another couple days of IV medicines. He needs follow-up on his arm surgery by Dr. Damian. Patient had an episode where occult he coughing up phlegm last night. I will add Pulmozyme. If that doesn't may need to bronchoscope him. Continue with Solu-Medrol and bronchodilators for now. He had a melanoma removed from his arm. Dr. Hoover is evaluating for that. The left upper lobe lung lesion has almost totally resolved and was a slowly resolving pneumonia. 09-13-16 patient is feeling better. He's coughing up sputum now. Probably can decrease medications tomorrow but he's not ready for discharge yet. He has pretty severe COPD with superimposed bronchitis and bronchopneumonia. 09/14/16 patient back to baseline. Can go home taking oral Ceftin or Omnicef for 5 days. Prednisone 20 mg daily for 5 days. Watch glucoses at home. I will see in 2 weeks in the office. Exam (Progress Note) - Constitutional Vitals: Period Temp Pulse Resp BP Sys/Ingram Pulse Ox Last 24 Hr 97.3 F-98.1 F 56-81 16-22 143-157/71-84 91-99 Exam: Patient is alert and oriented. Vital signs normal. Pupils react to light. Throat is clear. Neck supple no bruits. Chest clear, equal breath sounds. Heart normal rate rhythm no murmurs. He has a defect over his sternum from previous sternal infection with debridement. Abdomen soft nontender no masses. Bowel sounds present. Extremities no clubbing cyanosis or edema. Calves nontender. Bandage is off right forearm. Wound looks clean. Results - Labs CBC & BMP: 09/14/16 06:52 09/13/16 05:28 Lab Results: I have reviewed the past 24 hour labs Assessment and Plan (1) Bronchopneumonia Status: Acute Assessment and plan: Fever cough elevated white count and patchy infiltrate in the right lower lobe on x-ray. Agree with current antibiotics. He is being covered for possible meningitis as well with these antibiotics. Await spinal tap reports. 09/11/2016 continuing antibiotics for bronchopneumonia. 09/12/16 continuing antibiotics for bronchopneumonia. He has retained thick secretions which should get better with bronchodilators and Pulmozyme. Cannot Reduce steroids yet. 09/13/16 he is getting the sputum up a little better. I will decrease his steroids a little. Needs IV antibiotics a few more days. 09/14/16 feeling a lot better. I think he can be discharged on oral medications today. Ceftin oral Omnicef would be good. I can see in the office in 2 weeks. Current Visit: Yes (2) Altered mental status, unspecified Status: Acute Assessment and plan: Patient is more alert this morning. I suspect it was a combination of his acute febrile illness and his chronic pain medications that caused the confusion and hallucinations. However a neurology evaluation would be helpful. Brain CT did not show anything specific. Family assures me that one of his sons supervises his pain medications. 09/11/2016 suspect his altered mental status was an interaction between exacerbation of his COPD, bronchopneumonia, and pain medications. 09/12/16 status is better. Neurology note appreciated. Findings said to be suggestive of aseptic meningitis. Unclear as to how long to treat with antibiotics for this. 09/13/16 combination of chronic pain medications and superimposed bronchitis with bronchopneumonia and a chronic longer. Mental status has improved. Neurology does not feel that he has meningitis. 09/14/16 mental status back to baseline. He is ambulatory and oriented. Current Visit: Yes (3) recent melanoma removal Status: Acute Assessment and plan: Dr. José Miguel Damian removed a melanoma from his right arm last week. This needs following up during this hospitalization. 09/12/16 Dr. Hoover is seen. Await consult from Dr. Damian. Patient was due to see him back in the clinic earlier this week for follow-up of the arm surgery. 09-13-16 at some point needs follow up with the plastic surgeon that remove the melanoma, that would be Dr. Damian. 09/14/16 Dr. Damian saw him remove the bandage evaluated wound which looks good. Can follow up with oncology if further treatment needed. Current Visit: Yes (4) Chronic obstructive pulmonary disease with bronchospasm Status: Chronic Assessment and plan: Will treat with low-dose IV STEROIDS as well as bronchodilators and antibiotics. We need to check ABGs to be sure he is not having CO2 narcosis. 09/11/2016 continuing above medications. ABG showed up PO2 78 PCO2 44 pH 7.44 on 2 L oxygen. No significant CO2 retention. 09/12/16 continuing with steroids antibiotics bronchodilators. Glucoses are a little high because of the steroids. 09/13/16 continuing IV medications and bronchodilators. We will reduce steroids a little. 09/14/16 COPD exacerbation is much improved. He can be discharged on oral medications. Would suggest prednisone for 5 more days as well as an oral antibiotic. Current Visit: No Specialty Discharge - Follow Up or Referrals Follow up with: Giacomo Gaspar MD [Physician] - 09/24/16 1:15 pm (For outpatient Epidural of neck at [facility] on [address] [place] [address],nothing to eat or drink 6 hours prior to procedure, need to have a stud driver, Need to hold Eliquis 3 days prior to procedure if okay with your Doctor.)
[2016-09-14] MEDS: INSULIN REGULAR 100 UNIT/ML SUBCUT SCH (09:49)
[2016-09-14] MEDS: MULTIVITAMIN (CENTRUM) TABLET PO SCH (09:49)
[2016-09-14] MEDS: APIXABAN 5 MG TABLET PO SCH (09:50)
[2016-09-14] MEDS: GABAPENTIN 400 MG CAPSULE PO SCH (09:50)
[2016-09-14] MEDS: methylPREDNISolone SOD SUC 40 MG/1 ML VIAL IV SCH (09:50)
[2016-09-14] MEDS: ESCITALOPRAM 10 MG TABLET PO SCH (09:50)
[2016-09-14] MEDS: ATORVASTATIN 20 MG TABLET PO SCH (09:50)
[2016-09-14] MEDS: AMIODARONE 200 MG TABLET PO SCH (09:50)
--- NOTE | 2016-09-14 09:50 | Oncology Progress Note ---
Oncology Subjective PN Interval history: I discussed this patient's case with Dr. José Miguel Damian today. This appears to be a very early melanoma that is unlikely to need any additional treatment presently. It will need follow-up and Dr. Damian is going to refer the patient to me. The pathology report just came back today and is probably not even on this patient's EMR yet. We will arrange for follow-up in 4-6 weeks. Thank you for consulting me. Exam - Constitutional Vitals: Period Temp Pulse Resp BP Sys/Ingram Pulse Ox Last 24 Hr 97.3 F-98.1 F 56-81 16-22 143-157/71-84 91-99 Results - Labs CBC & BMP: 09/14/16 06:52 09/13/16 05:28 Specialty Discharge - Follow Up or Referrals Follow up with: Giacomo Gaspar MD [Physician] - 09/24/16 1:15 pm (For outpatient Epidural of neck at [facility] on [address] [place] [address],nothing to eat or drink 6 hours prior to procedure, need to have a seasonal delivery driver, Need to hold Eliquis 3 days prior to procedure if okay with your Doctor.)
[2016-09-14] MEDS: PANTOPRAZOLE 40 MG TABLET PO SCH (09:51)
[2016-09-14] MEDS: CHOLECALCIFEROL 1,000 UNIT TABLET PO SCH (09:51)
[2016-09-14] MEDS: ALPRAZolam 0.5 MG TABLET PO SCH (09:51)
--- NOTE | 2016-09-14 10:28 | Discharge Summary ---
Hospital Course - Hospital Course Hospital Course: 51 years old white male who presented with altered mental status and encephalopathy and was found to have aseptic meningitis. Apparently had some shortness of breath with cough and developed bronchopneumonia. Started on treatment with Rocephin and vancomycin. He recently had right arm melanoma removal and Dr. Damian was consulted. Pulmonary were consulted in regards of pneumonia, shortness of breath and COPD exacerbation. Neurology was consulted in regards of altered mental status and abnormal brain MRI. Neurology consulted for Eliquis assistance.Recently started on Pulmozine, a high dose of Solu-Medrol and DuoNeb's treatment with bronchopneumonia and severe COPD. From medical records, initially she had suspicion for pulmonary cancer which was ruled out. His brain MRI-without significant abnormalities. CSF was done in the ER which revealed elevated WBC 19, lymphocytes 74% and protein 53 -aseptic meningitis. It was recommended to cont rocephin 2 g IV daily. His blood culture was negative for 4 days, CSF culture- neg for 72 hrs. Pt was complaining worsening neck pain and was asking for IV pain meds. He is following DR. Gaspar as oupt for pain management. MRI of the neck was done which revealed worsening degenerative changes and DR. Gaspar is planning steroid injection in 1-2 weeks once pt recovers. His SOB and cough significantly improved since admission.His steroid was titered down. Pulmonary recommend to dc pt home on ceftin and prednisone for 5 days and have f/u cesia with Dr. Finley as oupt in 2 weeks. Pt had recent melanoma removal in right forearm by Dr. Pappas. Bx revealed early stage of melanoma. Oncology was consulted, pt will have f/u cesia with DR. Hoover as outpt in 4-6 weeks. Diagnosis - Discharge Diagnosis (1) Aseptic meningitis Status: Resolved (2) Altered mental status, unspecified Status: Resolved (3) Bronchopneumonia Status: Acute (4) Leukocytosis Status: Resolved (5) Pneumonia Status: Acute (6) recent melanoma removal Status: Resolved (7) Paroxysmal atrial fibrillation Status: Chronic (8) Neck pain Status: Chronic Specialty Discharge - Follow Up or Referrals Follow up with: Moy Finley MD [Physician] - 2 Weeks (CBC, BMP, & CXR) Giacomo Gaspar MD [Physician] - 09/24/16 1:15 pm (For outpatient Epidural of neck at [facility] on [address] [place] [address],nothing to eat or drink 6 hours prior to procedure, 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, Need to hold Eliquis 3 days prior to procedure if okay with your Doctor.) Discharge Plan - Discharge Data Disposition: Disch To Home/Self Care Condition at Discharge: Stable Discharge Diet: advance to your usual diet Activity: resume usual activities as tolerated Hygiene: no restrictions Weight Bearing at Discharge: full weight bearing Contact your physician if you experience:: fever over 101, Redness or swelling, Nausea/Vomiting, Shortness of breath, pain uncontrolled by pain medications - Discharge Medications New Apixaban [Eliquis] 5 mg PO BID #60 tablet Cefuroxime Tab [Ceftin] 500 mg PO BID #10 tablet Continue Atorvastatin [Lipitor] 20 mg PO DAILY Escitalopram [Lexapro] 20 mg PO DAILY Zolpidem [Ambien] 10 mg PO BEDTIME Levothyroxine Tab [Synthroid Tab] 50 mcg PO DAILY Hydrocodone/Acetaminophen [Hydrocodon-Acetaminophn 10-325] 1 tablet PO Q8HR glipiZIDE [Glipizide] 5 mg PO DAILY Fluticasone/Vilanterol [Breo Ellipta 100-25 Mcg INH] 1 puff PO DAILY Morphine ER Tab [Ms Contin] 30 mg PO Q12H Gabapentin Cap/Tab [Neurontin Cap/Tab] 300 mg PO TID #90 capsule Amiodarone HCl 100 mg PO DAILY raNITIdine HCl [Ranitidine HCl] 1 tablet PO BEDTIME Alprazolam [Xanax] 1 tablet PO BID Multivitamin [Multivitamins] 1 tablet PO DAILY Albuterol Sulfate [Proair HFA] 2 puff INH Q6H PRN PRN Reason: Shortness Of Breath/Wheezing Cholecalciferol (Vitamin D3) [Vitamin D3] 5,000 unit PO DAILY predniSONE TAB [PredniSONE] 20 mg PO DAILY #5 tablet - Follow Up or Referral Follow Up: Moy Finley MD [Physician] - 2 Weeks (CBC, BMP, & CXR) Giacomo Gaspar MD [Physician] - 09/24/16 1:15 pm (For outpatient Epidural of neck at [facility] [address],nothing to eat or drink 6 hours prior to procedure, 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, Need to hold Eliquis 3 days prior to procedure if okay with your Doctor.) - Forms/Instructions Exam - Constitutional Vitals: Period Temp Pulse Resp BP Sys/Ingram Pulse Ox Last 24 Hr 97.3 F-98.1 F 56-81 16-22 143-157/71-84 91-99 General appearance: normal weight, no acute distress - Head Head exam: Present: normal inspection, normocephalic, atraumatic - Eye Eye exam: Present: EOMI Pupils: Present: ANGELICA - ENT ENT exam: Present: normal exam - Neck Neck exam: Present: normal inspection - Respiratory Respiratory exam: Present: decreased breath sounds - Cardiovascular Cardiovascular exam: Present: irregular rhythm - GI/Abdominal GI/Abdominal exam: Present: normal bowel sounds, soft - Neurological Exam Neurological exam: Present: alert, oriented X3, normal gait - Psychiatric Psychiatric exam: Present: normal affect, normal mood - Skin Skin exam: Present: normal color, warm, dry Discharge Results Procedures and tests throughout hospitalization: Pending Orders 09/09/16 03:06 Herpes Simplex Virus,PCR,CSF Routine Viral Culture, Non-Respiratory Routine Labs on day of discharge: Labs from last 24 hours 09/14/16 09/14/16 09/13/16 07:09 06:52 19:09 WBC 14.0 H RBC 3.78 L Hgb 10.8 L Hct 33.2 L MCV 87.8 MCH 29 MCHC 32.5 RDW 13.3 Plt Count 188 D MPV 11.8 Neut % (Auto) 79.8 H Lymph % (Auto) 7.1 L Davis % (Auto) 5.9 Eos % (Auto) 0.0 Baso % (Auto) 0.2 Neut # (Auto) 11.2 H Lymph # (Auto) 1.0 L Davis # (Auto) 0.8 Eos # (Auto) 0.0 Baso # (Auto) 0.0 Total Counted 100 Immature Gran % 7.0 Nucleated RBC % 0.2 Immature Gran # 0.98 Segmented Neutrophils 81 Band Neutrophils 1 Lymphocytes 12 L Monocytes 6 Nucleated RBCs # 0.03 Platelet Estimate Adequate Hypochromasia 1+ Microcytosis Slight POC Glucose 245 H 300 H 09/13/16 09/13/16 15:15 11:12 WBC RBC Hgb Hct MCV MCH MCHC RDW Plt Count MPV Neut % (Auto) Lymph % (Auto) Davis % (Auto) Eos % (Auto) Baso % (Auto) Neut # (Auto) Lymph # (Auto) Davis # (Auto) Eos # (Auto) Baso # (Auto) Total Counted Immature Gran % Nucleated RBC % Immature Gran # Segmented Neutrophils Band Neutrophils Lymphocytes Monocytes Nucleated RBCs # Platelet Estimate Hypochromasia Microcytosis POC Glucose 357 H 276 H Preliminary micro results at discharge 09/10/16 03:05 Blood Culture - Preliminary Blood No growth at 3 days DS: Provider Date of admission: 09/10/16 02:53 Primary care physician: . No PCP Attending physician on admission: Karyn Rojo MD Consults: 09/10/16 03:02 Consult to Pharmacy [CONS] Routine Reason for Pharmacy Consult: Dose/Manage Vancomycin 09/10/16 04:03 Consult to Pharmacy [CONS] Routine Reason for Pharmacy Consult: Adjust Meds Renal Funct 09/10/16 18:34 Consult to Physician [CONS] Routine Comment: CVA Consulting Provider: Elpidio Castillo Consult to Specialist Group: Neurology When should Consulting Provider be notified: In am 09/11/16 12:22 Consult to Physician [CONS] Routine Comment: cheyanne Reyes held last year no resumption Consulting Provider: Cardiology - [facility] Consult to Specialist Group: Cardiology When should Consulting Provider be notified: Now Person Notified: DONTA Date Notified: 09/11/16 Time Notified: 13:35 09/11/16 12:25 Consult to Physician [CONS] Routine Comment: lung mass biopsy pathology possibly adenocarcinoma Consulting Provider: Kulwinder Hoover Consult to Specialist Group: Oncology When should Consulting Provider be notified: Now Person Notified: TETO Date Notified: 09/11/16 Time Notified: 13:36 09/12/16 11:29 Consult to Physician [CONS] Routine Comment: pain data management consultant Provider: Giacomo Gaspar Person Notified: VIDHI Date Notified: 09/12/16 Time Notified: 11:47 Discharging clinician: Geri Ross MD Expected date of discharge: 09/14/16
== END 2016-09-14 11:37 | disposition home or self-care (01) | DRG 97 ==
LOC: N.ED 20:06 → N.EDINP 09-10 02:53 → N.2E 09-10 03:39
PROVIDERS: ADMIT Internal Medicine; ATTEND Internal Medicine

== ENCOUNTER 2016-11-22 11:16 | Observation (INO) ==
--- NOTE | 2016-11-21 23:13 | History and Physical Update ---
Sedation H&P Update - History and Physical H&P was reviewed, the patient examined and there: are no changes in the patients condition since last H&P was completed. - Dictation Physical: refer to H&P completed by admitting physician - Physical Exam Mental Status: alert and oriented Heart: regular rate and rhythm Lung: clear to auscultation Abdomen: within normal limits Vitals: within normal limits - Sedation Plan for Sedation: minimal Patient Consent: Procedure disscussed with patient and patinet has consented., Risks and benefits were discussed with patient,including infection,, bleeding, injury to surrounding structures, seizure, temporary nerve, Patient understands and accepts potential risks/benefits and agrees to, proceed. ASA Class: III Airway Assessment: Class III: Soft palate, base of uvula visible
--- NOTE | 2016-11-21 23:18 | Cardiology History & Physical ---
Assessment and Plan (1) Progressive angina Status: Acute Assessment and plan: The patient has progressive angina. There is a greater than 90% chance that he has some new CAD causing symptoms. He has failed medical therapy Plan/recommendations: He has stopped his Eliquis He is to continue his aspirin I will give him aspirin 325 mg chewed upon arrival Hydrate well with normal saline Left heart cath and possible PTCA or stent Left heart cath and possible PTCA or stent were discussed with the patient. The risk of the procedure include but are not limited to a small risk of injury to the vessel, abnormal heart rhythm, stroke, heart attack, need for emergent surgery, contrast reaction, restenosis, or . The patient voices understanding, agrees with the plan, and desires to proceed with the heart catheterization. (2) Paroxysmal atrial fibrillation Status: Acute (3) COPD (chronic obstructive pulmonary disease) Status: Acute (4) Diabetes mellitus Status: Acute (5) High risk medication use Status: Acute (6) Hyperlipidemia Status: Acute (7) Narcotic dependence Problem details: Long-term opioid use Status: Acute (8) Anxiety and depression Status: Chronic (9) Chronic pain Status: Chronic (10) Diabetes Status: Chronic Qualifiers: Diabetes mellitus type: type 2 Diabetes mellitus complication status: with unspecified complications (11) H/O four vessel coronary artery bypass graft Status: Chronic History of Present Illness Chief complaint: 'my chest has been hurting more" History of present illness: Mr. Francois is a 61 year old male PCP: Dr. 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 willis 61-year-old man. He has had coronary bypass grafting a few years ago. It was a complicated course because of lung disease. He has quit smoking. He continues to have COPD. He probably has some sleep apnea. He presents with increasing chest pain suggestive of angina. Is limiting. He is on good medical therapy. I added a beta-katy. He is referred for diagnostic catheterization and possible intervention. He stopped his Eliquis about 3 days ago No bleeding in the pt's bowels, urine, or coughing up blood. No planned surgery for the next year. No contraindication to anticoagulation for a year. No orthopnea, PND, edema, palpitations, syncope, cough, wheezing, or phlegm. Home Medications Medication Instructions Recorded Confirmed Type Atorvastatin [Lipitor] 20 mg PO DAILY 03/23/15 10/23/16 History Escitalopram [Lexapro] 20 mg PO DAILY 03/23/15 10/23/16 History Fluticasone/Vilanterol [Breo 1 puff PO DAILY 03/23/15 10/23/16 History Ellipta 100-25 Mcg INH] Hydrocodone/Acetaminophen 1 tablet PO QID PRN 03/23/15 10/23/16 History [Hydrocodon-Acetaminophn 10-325] Levothyroxine Tab [Synthroid Tab] 50 mcg PO DAILY 03/23/15 10/23/16 History Morphine ER Tab [Ms Contin] 30 mg PO BID PRN 03/23/15 10/23/16 History Zolpidem [Ambien] 10 mg PO BEDTIME 03/23/15 10/23/16 History glipiZIDE [Glipizide] 5 mg PO BID 03/23/15 10/23/16 History Amiodarone HCl 100 mg PO DAILY 05/20/15 10/23/16 History Albuterol Sulfate [Proair HFA] 2 puff INH Q4-6H PRN 03/13/16 10/23/16 History Cholecalciferol (Vitamin D3) 5,000 unit PO DAILY 03/13/16 10/23/16 History [Vitamin D3] Apixaban [Eliquis] 5 mg PO BID #60 tablet 09/14/16 10/23/16 Rx ALPRAZolam [Xanax] 1 mg PO TID 10/22/16 10/23/16 History Aspirin [Ecotrin] 325 mg PO DAILY 10/22/16 10/23/16 History Atenolol 12.5 mg PO BID 10/22/16 10/23/16 History Docusate Sodium 100 mg PO DAILY 10/22/16 10/23/16 History Haloperidol Tab [Haldol Tab] 0.5 mg PO DAILY PRN 10/22/16 10/23/16 History Magnesium Chloride [Slow Mag] 64 mg PO BID 10/22/16 10/23/16 History Multivit-Min/FA/Lycopen/Lutein 1 each PO DAILY 10/22/16 10/23/16 History [Centrum Silver Tablet] Nitroglycerin Sl Tab [Nitrostat] 0.4 mg SL Q5M PRN 10/22/16 10/23/16 History Omeprazole [Prilosec] 20 mg PO BID 10/22/16 10/23/16 History metFORMIN [Glucophage] 500 mg PO BID 10/22/16 10/23/16 History Gabapentin Cap/Tab [Neurontin 300 mg PO TID #270 capsule 10/27/16 Rx Cap/Tab] Levofloxacin Tab [Levaquin Tab] 500 mg PO DAILY #2 tablet 10/27/16 Rx guaiFENesin LIQUID [Robitussin] 10 ml PO Q4H PRN #120 mls 10/27/16 Rx predniSONE TAB [PredniSONE] 40 mg PO DAILY #5 tablet 10/27/16 Rx Allergies Allergy/AdvReac Type Severity Reaction Status Date / Time No Known Allergies Allergy Verified 09/09/16 20:25 12 point system: (A 12 point review of systems is negative except for as mentioned in HPI.) Medical,Surgical,& Family Hx - Medical History Cardio: History of: Cardiac Dysrhythmia (a fib), CAD, Hypertension, [place] No history of: Pacemaker, PVD, Valvular Heart Disease Psychological: History of: Anxiety Disorders, Depression Neurology: No history of: Dementia, Migraine, Seizures, TIA, Vertigo HEENT: History of: Ear Problem, Dental Problems (WEARS TOP DENTURES, NATURAL BOTTOM TEETH) No history of: Oral Cancer Endocrine: History of: Diabetes Mellitus (NIDDM), Dyslipidemia, Thyroid Disorder Rheumatology: History of;: Rheumatological Problems Respiratory: History of: COPD (SOB), Intubation, Pneumonia No history of: Pulmonary Hypertension Comment Only: Lung Cancer (POSSIBLE) Genitourinary: History of: Recurring Urinary Tract Infections, Problems ( HARD TO URINATE AT TIMES) No history of: Prostate Problems Gastrointestinal: History of: GERD, Hemorrhoids No history of: Hepatitis Musculoskeletal: History of: Back/Neck Problems, Degenerative Disk Disease, Herniated Disk, Musculoskeletal Problems Hematology: No history of: Bleeding Problems, Hematologic Cancer Other: History of: Cancer (POSSIBLE LUNG), MRSA - Surgical History Cardiac Surgeries: Sugical HX of: Cardiac Catheterization, Cardiac Surgery ( CABG a year ago) Patient Denies: Carotid Endarterectomy, Internal Defibrillator HEENT Surgeries: Patient denies: Carotid Endarterectomy Abdominal Surgeries: Surgical HX of: Appendectomy, EGD Reproductive Surgeries: Patient denies;: Prostate Surgery Orthopedic Surgeries: Surgical HX of;: Orthopedic Surgery (3 KNEE SCOPES R ELBOW ) - Family History Family History: Reports;: Family Cancer (DAD), Family Diabetes (DAD), Family Heart Disease (MOM GRANDMOTHER), Family Hypertension (MOM,DAD), Family Psychiatric Problems (BROTHER), Family Stroke (GRANDMOTHER) - Social History Smoking Status: Former smoker Have you smoked in the last 12 months: No Frequency of Alcohol Use: Rarely Type of Drug Use: None Marital Status: Lives With:: Spouse Functional capacity: independent ambulation Cardiology Physical Exam - Constitutional Exam: HEENT: Pupils equal, reactive to light and accommodation Neck: NoJVD or bruit Lungs decreased breath sounds, bilaterally Heart: Regular rhythm rate with normal S1 and S2. Apical S4 Abdomen: No hepatosplenomegaly Spine/extremities: No clubbing, cyanosis, or edema Neuro: Nonfocal Psych: No depression or anxiety Result/EKG - Labs Lab Results: I have reviewed the past 24 hour labs Labs: Labs from [facility] a few weeks ago were okay. We will recheck them today in addition to a chest x-ray.
[~2016-11-22 11:16] MED LIST: ASPIRIN 325 MG TABLET PO ONE; DIAZEPAM 5 MG TABLET PO ONE; MAGNESIUM SULF RIDER 2 GM in PREMIX 1 EACH IV PRN; POTASSIUM CHLORIDE RIDER 10 MEQ in PREMIX 1 EACH IV PRN; diphenhydrAMINE CAP 25 MG CAPSULE PO ONE
--- NOTE | 2016-11-22 12:14 | EKG Report ---
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
--- NOTE | 2016-11-22 12:30 | XRay Report ---
Referring Physician: Josh Quiles Exam: XR chest 1V portable Date: November 22, 2016 at 12:01 PM Reason: Chest pain Comparison: Chest 2 views October 26, 2016 Findings: The cardiac silhouette is upper normal in size, but the patient is status post sternotomy. The interstitial markings are slightly prominent bilaterally, which could represent minimal pulmonary edema. No pneumothorax or pleural effusion is identified. No acute osseous process is seen. Impression: There has been interval improved aeration of both lungs. However, there may be minimal pulmonary edema. PROCEDURE INTERPRETED AT [facility] DEPARTMENT OF RADIOLOGY Final Report Signed by: Dr. Steven Hoskins
[2016-11-22] MEDS ORDERED: diphenhydrAMINE CAP 25 MG CAPSULE ONE (12:41)
[2016-11-22] MEDS ORDERED: DIAZEPAM 5 MG TABLET ONE (12:41)
[2016-11-22 12:43] LABS: Basophils # 0.1 10*3/uL (0.0-0.2); Basophils % 0.7 % (0.0-0.8); Eosinophils # 0.8 10*3/uL (0.0-0.87); Eosinophils % 10.4 % (0.00-10.9); Hematocrit 41.7 VOL% (42.0-52.0); Immature Granulocytes % 0.7 %; Immature Granulocytes Absolute 0.05 #; Lymphocytes % 26.9 % (21.2-54.2); Mean Corpuscular HGB Conc 31.2 GM/DL (32-36); Mean Corpuscular Hemoglobin 29 PG (27-34); Mean Corpuscular Volume 91.4 FL (87-102); Mean Platelet Volume 11.5 FL (9.6-12.0); Monocytes # 0.5 10*3/uL (0.11-0.8); Monocytes % 6.1 % (1.7-12.7); Neutrophils # 4.1 10*3/uL (1.4-7.4); Neutrophils % 55.2 % (38.7-73.9); Platelet Count 176 T/CUMM (130-400); Red Blood Count 4.56 MC/CUMM (3.8-5.5); Red Cell Distribution Width 14.2 % (9.3-17.3); White Blood Count 7.4 T/CUMM (4-12)
[2016-11-22] MEDS: SODIUM CHLORIDE 0.9% 1,000 ML IV SCH ×2 (12:45→17:22)
[2016-11-22 13:20] LABS: Calcium 8.9 MG/DL (8.5-10.1); Osmolality,Calculated 275.8 MOS/KG (273-304); Potassium 4.2 MMOL/L (3.5-5.1)
[2016-11-22] MEDS ORDERED: MEPERIDINE 25 MG/1 ML VIAL ONE ×2 (13:47→14:06)
[2016-11-22] MEDS ORDERED: LIDOCAINE 1% 20 ML VIAL ONE (13:47)
[2016-11-22] MEDS ORDERED: MIDAZOLAM 2 MG/2 ML VIAL ONE (13:47)
[2016-11-22] MEDS ORDERED: ASPIRIN CHEW 81 MG TABLET PO ONE (13:56)
[2016-11-22] MEDS ORDERED: ONDANSETRON 4 MG/2 ML VIAL ONE (14:02)
[2016-11-22] MEDS ORDERED: HEPARIN 5,000 UNIT/1 ML VIAL ONE (14:07)
[2016-11-22] MEDS ORDERED: TIROFIBAN 5,000 MCG/100 ML PREMIX IV ONE (14:29)
[2016-11-22] MEDS ORDERED: HYDROmorphone 2 MG/1 ML VIAL ONE (14:40)
[2016-11-22] MEDS ORDERED: TIROFIBAN 5,000 MCG/100 ML PREMIX IV SCH (14:41)
[2016-11-22] MEDS ORDERED: TICAGRELOR 90 MG TABLET ONE (14:58)
[2016-11-22] MEDS ORDERED: ACETAMINOPHEN/CODEINE 300-30 MG TABLET PO PRN (15:04)
[2016-11-22] MEDS ORDERED: ACETAMINOPHEN 325 MG TABLET PO PRN (15:04)
--- NOTE | 2016-11-22 15:14 | Operative Note ---
Date of procedure: 11/22/16 Procedure Preformed: Left heart cath Coronary angiography Left ventriculography Supravalvular aortography Vein graft angiography Internal mammary artery injection/graft to the LAD Angiogram of the right femoral artery Aggrastat bolus and infusion Stent of of the right coronary artery-going through the vein graft to the right ojebsoxr-tbpr-[id number] stent, 3.5 x 12 mm Zions Alpine, direct stenting Loading with Brilinta, 180 mg p.o. Angio-Seal of the right femoral artery-successful Surgeon / Physician: Josh Quiles Saw Offbearer: Didier Dukes Post-op diagnosis: same (Progressive angina, known coronary disease, prior bypass grafting, cannot walk adequately to get a stress test, has significant lung disease-evaluate for progression of disease/ cause of angina.) Findings: Impression: Significant disease in the right coronary, just prior to the PDA and post lateral branch-75%, MEGAN grade III flow Total occlusion of the proximal right coronary, left circumflex, and proximal LAD after diagonal Patent BENITEZ to the LAD Patent vein graft to the mid right coronary artery-however there is a significant lesion just distal to it/insertion site--see above Patent vein graft to the diagonal and obtuse marginal Near normal global left systolic function, LVEF 50% Inferobasal hypokinesis Moderate elevation of LVEDP, 22 mmHg No significant mitral regurgitation Mildly ectatic aorta without significant regurgitation Aggrastat bolus and infusion-for PCI Status post successful stenting of the mid right coronary artery, prior to the PDA, but after the insertion site of the vein graft-going through the vein oxuob-qyqg-eyqfiva stent, 3.5 x 12 mm Zions Alpine, direct stenting Angiogram of the right coronary-from follow-through from the LV gram Angio-Seal of the right femoral artery-successful Loading with Brilinta, 180 mg p.o. Plan/recommendations: The patient will have risk factors optimized. The patient will be on antiplatelet medications to include aspirin indefinitely and Plavix or Brilinta for at least a year. Because of his history of atrial fibrillation, I will start him on Eliquis 2.5 mg p.o. twice daily after 3 more days to allow his groin puncture site to heal and less risk of bleeding with it. Currently he remains in sinus rhythm but has a history of paroxysmal atrial fibrillation. Follow-up will be scheduled. My post-cath check to Addenda: I saw the patient post-cath. the groin puncture site and distal pulse are stable. vital signs are stable and the patient will be observed closely overnight. Specimens: none sent Estimated blood loss: minimal Condition: stable Anesthesia: local, conscious sedation Disposition: floor
[2016-11-22] MEDS ORDERED: HALOPERIDOL 1 MG TABLET PO PRN (15:20)
[2016-11-22] MEDS ORDERED: NITROGLYCERIN SL 0.4 MG TABLET SL PRN (15:20)
[2016-11-22] MEDS ORDERED: guaiFENesin 200 MG/10 ML UDCUP PO PRN (15:20)
--- NOTE | 2016-11-22 15:20 | Cardiology Operative Report ---
Date of Procedure:: 11/22/16 Post-op diagnosis: same (Progressive angina, known coronary disease, prior bypass grafting, cannot walk adequately to get a stress test, has significant lung disease-evaluate for progression of disease/ cause of angina.) Procedure: Date of procedure: 11/22/16 Procedure Preformed: Left heart cath Coronary angiography Left ventriculography Supravalvular aortography Vein graft angiography Internal mammary artery injection/graft to the LAD Angiogram of the right femoral artery Aggrastat bolus and infusion Stent of of the right coronary artery-going through the vein graft to the right natlfswf-yxqb-mkzqmad stent, 3.5 x 12 mm Zions Alpine, direct stenting Loading with Brilinta, 180 mg p.o. Angio-Seal of the right femoral artery-successful Surgeon / Physician: Josh Quiles Associate Financial Representative: Didier Dukes Post-op diagnosis: same (Progressive angina, known coronary disease, prior bypass grafting, cannot walk adequately to get a stress test, has significant lung disease-evaluate for progression of disease/ cause of angina.) procedure: The patient was prepped and draped in usual manner. Entered the right femoral artery via the Seldinger technique. I used a sheath and then used an angled pigtail. I crossed the valve. Left ventricular end-diastolic pressures measured. Left ventriculography was done. Left ventricle pullback was done. Then did a aortogram. I then removed the pigtail pack catheter and placed a JL4 and engaged left coronary. Multiple views were taken. I then exchanged for a JR4. Multiple views of the right coronary were taken. I then uses JR4 to engage the vein graft to the diagonal/circumflex with multiple views, the vein graft to the right coronary with multiple views, and the ZEN to the LAD with multiple views. I then proceeded with the intervention-see below. The catheters were then removed from the patient. Please see the data sheets for the details of catheters used. Intervention: Cardiovascular surgery was available for any complications. The coronary intervention was done using a right vein bypass guide catheter, 0.014 run through wire. After no predilatation, then placed a 3.5 x 12 mm Zions Alpine coronary stent across the lesion. It was deployed. Angiogram of the artery after intervention was done. There was a good result.. Angiogram of the right femoral artery was done as a follow-through from the aortogram/left ventriculogram. Angio-Seal was done. Patient was transferred to her room on telemetry in satisfactory condition. Please see the cath report for details of the pressures and times. Complications: none Hemodynamic data: LVEDP was 22 mmHg. Angiographic data: The left main coronary was large and had minimal luminal irregularities. The left anterior descending artery was moderate to large. There are 2 major diagonals. this Vessel is totally occluded after the second small diagonal. The mid to distal LAD fills via the left internal mammary artery. No apparent significant narrowing is seen in this vessel except where there is totally occluded and may be some of the small, 1 mm diameter, diagonals and proximal/ ostial disease. The left circumflex system was moderate to large. It was 1 major obtuse marginal and 1 posterior lateral branches. The post lateral is occluded. It fills via a Y graft goes to the diagonal and the obtuse marginal/posterior lateral. The right coronary artery was large in size, dominant vessel with the PDA. There was a moderate sized post lateral branch. He was totally occluded proximally. The vein graft to the right coronary was large. He had no significant disease within it. Inserted in the mid right coronary. However to 3 cm distal to the insertion site there was a 75% narrowing of the mid right coronary prior to the PDA. The PDA and posterior lateral branch had minimal luminal irregularities. The vein graft to the diagonal and the obtuse marginal circumflex was a Y graft. the Origin, body, insertion site was without significant disease. It filled these branches very well. There were minimal luminal irregularities in these vessels except for where they were totally occluded proximally. The ZEN to the LAD is a large conduit. Origin, body, insertion site was without significant disease. It filled mid to distal LAD very well. There is no significant disease in the LAD except for what was occluded proximally. MO[place] left ventriculography revealed near normal global left ventricular systolic function. Overall ejection fraction was at least 50%. There is no significant mitral regurgitation. The inferobasal segment was hypokinetic. Supravalvar aortography revealed a mildly ectatic aortic root without significant aortic regurgitation, one vein graft was noted to emanate from the aorta into the right coronary artery. After intervention of the mid right coronary, going through the vein graft to the right coronary, there was a 0% residual. There was a slight stepup and stepdown. There is MEGAN grade III flow. There is no evidence of dissection. Angiogram of the right femoral artery revealed the puncture site to be in a large vessel, above the bifurcation. It was suitable for Angio-Seal. Impression: Significant disease in the right coronary, just prior to the PDA and post lateral branch-75%, MEGAN grade III flow Total occlusion of the proximal right coronary, left circumflex, and proximal LAD after diagonal Patent BENITEZ to the LAD Patent vein graft to the mid right coronary artery-however there is a significant lesion just distal to it/insertion site--see above Patent vein graft to the diagonal and obtuse marginal Near normal global left systolic function, LVEF 50% Inferobasal hypokinesis Moderate elevation of LVEDP, 22 mmHg No significant mitral regurgitation Mildly ectatic aorta without significant regurgitation Aggrastat bolus and infusion-for PCI Status post successful stenting of the mid right coronary artery, prior to the PDA, but after the insertion site of the vein graft-going through the vein swkov-bmwx-bbaqdev stent, 3.5 x 12 mm Kimberlee Wiggins, direct stenting Angiogram of the right coronary-from follow-through from the LV gram Angio-Seal of the right femoral artery-successful Loading with Brilinta, 180 mg p.o. Plan/recommendations: The patient will have risk factors optimized. The patient will be on antiplatelet medications to include aspirin indefinitely and Plavix or Brilinta for at least a year. Because of his history of atrial fibrillation, I will start him on Eliquis 2.5 mg p.o. twice daily after 3 more days to allow his groin puncture site to heal and less risk of bleeding with it. Currently he remains in sinus rhythm but has a history of paroxysmal atrial fibrillation. Follow-up will be scheduled. My post-cath check to Addenda: I saw the patient post-cath. the groin puncture site and distal pulse are stable. vital signs are stable and the patient will be observed closely overnight. Specimens: none sent Estimated blood loss: minimal Condition: stable Anesthesia: local, conscious sedation Disposition: floor Additional CC's: Josh Tomas Anesthesia: local, minimal conscious sedation Surgeon / Physician: Josh Quiles Associate Financial Representative: other Estimated blood loss: minimal Specimens: none sent Condition: stable Disposition: floor
--- NOTE | 2016-11-22 16:05 | EKG Report ---
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
[2016-11-22] MEDS ORDERED: GLUCAGON 1 MG VIAL IM PRN (17:25)
[2016-11-22] MEDS ORDERED: DEXTROSE 50% 25 GM/50 ML VIAL IV PRN (17:25)
[2016-11-22] MEDS ORDERED: ZALEPLON 5 MG CAPSULE PO PRN (17:30)
[2016-11-22] MEDS ORDERED: ALBUTEROL 2.5 MG/3 ML NEB RESP TX PRN (17:30)
[2016-11-22 18:07] LABS: Troponin I Only < 0.015 NG/ML (0.00-0.045)
[2016-11-22] MEDS: MAGNESIUM CHLORIDE 64 MG TABLET PO SCH (20:20)
[2016-11-22] MEDS: MORPHINE ER 30 MG TABLET PO PRN (20:20)
[2016-11-22] MEDS: GABAPENTIN 300 MG CAPSULE PO SCH (20:21)
[2016-11-22] MEDS: TICAGRELOR 90 MG TABLET PO SCH (20:21)
[2016-11-22] MEDS: ALPRAZolam 0.5 MG TABLET PO SCH (20:21)
[2016-11-22] MEDS: ATENOLOL 25 MG TABLET PO SCH (20:21)
[2016-11-22] MEDS ORDERED: ATORVASTATIN 20 MG TABLET PO SCH (21:00)
[2016-11-22] MEDS: HYDROmorphone 2 MG/1 ML VIAL IV PRN (21:51)
[2016-11-22 23:39] LABS: Troponin I Only < 0.015 NG/ML (0.00-0.045)
[2016-11-23] MEDS: HYDROmorphone 2 MG/1 ML VIAL IV PRN (03:45)
[2016-11-23 06:45] LABS: Basophils # 0.1 10*3/uL (0.0-0.2); Basophils % 0.6 % (0.0-0.8); Eosinophils # 0.8 10*3/uL (0.0-0.87); Eosinophils % 10.8 % (0.00-10.9); Hemoglobin 11.1 GM/DL (14.0-18.0); Immature Granulocytes % 0.4 %; Immature Granulocytes Absolute 0.03 #; Lymphocytes # 1.9 10*3/uL (1.4-4.0); Lymphocytes % 23.7 % (21.2-54.2); Mean Corpuscular HGB Conc 31.7 GM/DL (32-36); Mean Corpuscular Hemoglobin 29 PG (27-34); Mean Corpuscular Volume 92.8 FL (87-102); Mean Platelet Volume 11.8 FL (9.6-12.0); Monocytes # 0.7 10*3/uL (0.11-0.8); Monocytes % 8.7 % (1.7-12.7); Neutrophils # 4.4 10*3/uL (1.4-7.4); Neutrophils % 55.8 % (38.7-73.9); Platelet Count 168 T/CUMM (130-400); Red Blood Count 3.77 MC/CUMM (3.8-5.5); Red Cell Distribution Width 14.3 % (9.3-17.3); White Blood Count 7.8 T/CUMM (4-12)
[2016-11-23 07:10] LABS: Albumin 2.9 G/DL (3.4-5.0); Calcium 8.1 MG/DL (8.5-10.1); Total Protein 5.4 G/DL (6.4-8.3)
[2016-11-23 07:11] LABS: Osmolality,Calculated 285.1 MOS/KG (273-304); Potassium 4.4 MMOL/L (3.5-5.1)
[2016-11-23 07:13] LABS: Troponin I Only 0.017 NG/ML (0.00-0.045)
--- NOTE | 2016-11-23 07:34 | EKG Report ---
Stationary ECG Study [facility] Test Date: 11/23/2016 7:34:33 AM Pat Name: HEIDY VALDOVINOS Department: Room: 296 Gender: M Data Processing Consultant: JESSICA : 1955 Requested by: Ciera Quiles Order Number: [id number] Reading MD: CIERA QUILES Intervals [place] Rate: 50 P: 92 VT: 236 QRS: 29 QRSD: 125 T: 13 QT: 473 QTc: 445 Interpretive Statements SINUS BRADYCARDIA WITH PROLONGED VT INTERVAL LEFT BUNDLE BRANCH BLOCK Electronically Signed On 11-23-16 10:20:20 CDT by CIERA QUILES [email or web address]
[2016-11-23] MEDS: TICAGRELOR 90 MG TABLET PO SCH (08:25)
[2016-11-23] MEDS: ALPRAZolam 0.5 MG TABLET PO SCH ×2 (08:25→14:04)
[2016-11-23] MEDS: MAGNESIUM CHLORIDE 64 MG TABLET PO SCH (08:25)
[2016-11-23] MEDS: GABAPENTIN 300 MG CAPSULE PO SCH ×2 (08:25→14:04)
[2016-11-23] MEDS ORDERED: VILANTEROL PO SCH (09:00)
[2016-11-23] MEDS ORDERED: AMIODARONE 200 MG TABLET PO SCH (09:00)
[2016-11-23] MEDS ORDERED: DOCUSATE SODIUM 100 MG CAPSULE PO SCH (09:00)
[2016-11-23] MEDS ORDERED: FLUTICASONE PO SCH (09:00)
[2016-11-23] MEDS ORDERED: predniSONE 20 MG TABLET PO SCH (09:00)
[2016-11-23] MEDS ORDERED: MULTIVITAMIN (CENTRUM) TABLET PO SCH (09:00)
[2016-11-23] MEDS ORDERED: CHOLECALCIFEROL 1,000 UNIT TABLET PO SCH (09:00)
[2016-11-23] MEDS ORDERED: ESCITALOPRAM 10 MG TABLET PO SCH (09:00)
[2016-11-23] MEDS ORDERED: ASPIRIN CHEW 81 MG TABLET PO SCH (09:00)
[2016-11-23] MEDS ORDERED: LEVOTHYROXINE 50 MCG TABLET PO SCH (09:00)
[2016-11-23] MEDS ORDERED: PANTOPRAZOLE 40 MG TABLET PO SCH (09:00)
[2016-11-23] MEDS ORDERED: LEVOFLOXACIN 500 MG TABLET PO SCH (09:00)
--- NOTE | 2016-11-23 09:19 | Discharge Summary ---
Hospital Course - Hospital Course Hospital Course: The patient was admitted for cath for angina. Is found to have a significant narrowing of the right coronary artery prior to the posterior branch and PDA. This lesion was stented. It went well. Overnight he had difficulty voiding and a Calero was placed. Next it was slightly bradycardic. His atenolol has been held. I will stop it. He has had some oozing from his groin. I will leave him off the Eliquis for now as he has not had any episodes of atrial fibrillation and I will continue the Brilinta and baby aspirin for now. The Eliquis could be restarted later at a lower dose. He has had borderline low blood pressure. His atenolol was held but with bradycardia and his amiodarone was held. The amiodarone will be restarted tomorrow. Also his pain medicines were held this a.m. because of the hypotension. At about noon he is to get up and about and ambulate. If he is doing well and no groin bleeding or hypotension and can void he will be discharged home with follow-up in about 3 or 4 weeks. I emphasized to he and his the importance of taking the Brilinta and aspirin. - Time spent with patient Time with patient DS: Greater than 30 minutes Diagnosis - Discharge Diagnosis (1) Progressive angina Status: Acute (2) Paroxysmal atrial fibrillation Status: Acute (3) COPD (chronic obstructive pulmonary disease) Status: Acute (4) Diabetes mellitus Status: Acute (5) High risk medication use Status: Acute (6) Hyperlipidemia Status: Acute (7) Narcotic dependence Status: Acute (8) Anxiety and depression Status: Chronic (9) Chronic pain Status: Chronic (10) Diabetes Status: Chronic (11) H/O four vessel coronary artery bypass graft Status: Chronic Specialty Discharge - Follow Up or Referrals Follow up with: Josh Quiles MD [Physician] - (In about 3-4 weeks. I can see the patient sooner if needed.) Discharge Plan - Discharge Data Disposition: Disch To Home/Self Care Condition at Discharge: Stable Discharge Diet: advance to your usual diet, heart healthy Activity: no lifting (over 10 pounds or deep bending or straining for the next 2 weeks. If you tend to be constipated, take a medication to prevent straining with a BM which might result in the groin puncture site bleeding. Do not just lay around at home. Please get up and walk around intermittently during the day, particularly in the first few days after the heart cath. Ambulating every few hours would be good to prevent leg clots post cath.) Hygiene: no restrictions Weight Bearing at Discharge: full weight bearing Driving: not for (5 days) - Discharge Medications New Aspirin Chew Tab 81 mg PO DAILY tablet Ticagrelor [Brilinta] 90 mg PO BID #60 tablet Continue Atorvastatin [Lipitor] 20 mg PO BEDTIME Escitalopram [Lexapro] 20 mg PO DAILY Zolpidem [Ambien] 10 mg PO BEDTIME Levothyroxine Tab [Synthroid Tab] 50 mcg PO DAILY Hydrocodone/Acetaminophen [Hydrocodon-Acetaminophn 10-325] 1 tablet PO QID PRN PRN Reason: Pain glipiZIDE [Glipizide] 5 mg PO BID Amiodarone HCl 100 mg PO DAILY Albuterol Sulfate [Proair HFA] 2 puff INH Q4-6H PRN PRN Reason: Shortness Of Breath/Wheezing Cholecalciferol (Vitamin D3) [Vitamin D3] 5,000 unit PO DAILY ALPRAZolam [Xanax] 1 mg PO TID Omeprazole [Prilosec] 20 mg PO BID Nitroglycerin Sl Tab [Nitrostat] 0.4 mg SL Q5M PRN PRN Reason: Chest Pain metFORMIN [Glucophage] 500 mg PO BID Haloperidol Tab [Haldol Tab] 0.5 mg PO DAILY PRN PRN Reason: rage Multivit-Min/FA/Lycopen/Lutein [Centrum Silver Tablet] 1 each PO DAILY Gabapentin Cap/Tab [Neurontin Cap/Tab] 300 mg PO TID #270 capsule Fluticasone/Vilanterol [Breo Ellipta 100-25 Mcg INH] 1 puff INH DAILY Morphine ER Tab [Ms Contin] 30 mg PO BID PRN #0 PRN Reason: Pain Docusate Sodium 100 mg PO DAILY Magnesium Chloride [Slow Mag] 64 mg PO BID guaiFENesin LIQUID [Robitussin] 10 ml PO Q4H PRN #120 mls PRN Reason: Cough Hydrocortisone 2.5% Cream 1 each TOP BEDTIME Discontinued Aspirin [Ecotrin] 325 mg PO DAILY Atenolol 12.5 mg PO BID Apixaban [Eliquis] 5 mg PO BID #60 tablet - Follow Up or Referral Follow Up: Josh Quiles MD [Physician] - (In about 3-4 weeks. I can see the patient sooner if needed.) - Forms/Instructions Instructions: Left Heart Catheterization (DC), Heart Healthy Diet (GEN), Coronary Intravascular Stent Placement, Pediatric Speech Therapist (GEN) Additional Discharge Instructions: Be sure to take this to reduce your risk of having thrombosis/clotting of the stents. It is very important. If you are having problems with it, call Dr. Quiles. Give the patient a 1 months free Brilinta card. Have the patient ask the pharmacist when the patient gets 1 month free Brilinta what the cost of the next month will be. If it is over $ 60 per month, have him/her call me and we will talk about an alternative medication, such as generic Plavix, clopidogrel. Emphasized to the patient is very important for him/her to take the Brilinta. If for some reason it needs to be discontinued, some other medication needs to be substituted, such as generic Plavix, clopidogrel. Check your blood pressure and pulse twice a day, record it, and call it to us in 2-4 weeks or bring it to the next clinic appointment for me to review. Exam - Constitutional Vitals: Period Temp Pulse Resp BP Sys/Ingram Pulse Ox Last 24 Hr 94.8 F-98.5 F 47-57 16-20 91-138/46-86 92-99 Exam: HEENT: Pupils equal, reactive to light and accommodation Neck: NoJVD or bruit Lungs clear to auscultation Heart: Regular rhythm rate with normal S1 and S2. Apical S4 Abdomen: No hepatosplenomegaly Spine/extremities: No clubbing, cyanosis, or edema Neuro: Nonfocal Psych: No depression or anxiety Right groin puncture site is without hematoma. Distal pulse is 3-4+ Discharge Results Labs on day of discharge: Labs from last 24 hours 11/23/16 11/23/16 11/23/16 07:48 06:25 06:24 WBC RBC Hgb Hct MCV MCH MCHC RDW Plt Count MPV Neut % (Auto) Lymph % (Auto) [place] % (Auto) Eos % (Auto) Baso % (Auto) Neut # (Auto) Lymph # (Auto) [place] # (Auto) Eos # (Auto) Baso # (Auto) Immature Gran % Nucleated RBC % Immature Gran # Nucleated RBCs # Sodium 142 Potassium 4.4 Chloride 105 Carbon Dioxide 31 Anion Gap 10.4 BUN 16 Creatinine 1.20 GFR Calculation 78 BUN/Creatinine Ratio 13.00 Glucose 134 H POC Glucose 167 H Calculated Osmolality 285.1 Calcium 8.1 L Total Bilirubin 1.00 AST 13 ALT 18 Alkaline Phosphatase 72 Total Creatine Kinase 38 L CK-MB (CK-2) < 1.0 Troponin I 0.017 Total Protein 5.4 L Albumin 2.9 L Globulin 2.5 Albumin/Globulin Ratio 1.1 11/23/16 11/22/16 11/22/16 06:24 22:30 17:20 WBC 7.8 RBC 3.77 L Hgb 11.1 L Hct 35.0 L MCV 92.8 MCH 29 MCHC 31.7 L RDW 14.3 Plt Count 168 MPV 11.8 Neut % (Auto) 55.8 Lymph % (Auto) 23.7 [place] % (Auto) 8.7 Eos % (Auto) 10.8 Baso % (Auto) 0.6 Neut # (Auto) 4.4 Lymph # (Auto) 1.9 [place] # (Auto) 0.7 Eos # (Auto) 0.8 Baso # (Auto) 0.1 Immature Gran % 0.4 Nucleated RBC % 0.0 Immature Gran # 0.03 Nucleated RBCs # 0.00 Sodium Potassium Chloride Carbon Dioxide Anion Gap BUN Creatinine GFR Calculation BUN/Creatinine Ratio Glucose POC Glucose Calculated Osmolality Calcium Total Bilirubin AST ALT Alkaline Phosphatase Total Creatine Kinase 33 L 30 L CK-MB (CK-2) < 1.0 < 1.0 Troponin I < 0.015 < 0.015 Total Protein Albumin Globulin Albumin/Globulin Ratio 11/22/16 11/22/16 12:38 12:30 WBC 7.4 RBC 4.56 Hgb 13.0 L Hct 41.7 L MCV 91.4 MCH 29 MCHC 31.2 L RDW 14.2 Plt Count 176 MPV 11.5 Neut % (Auto) 55.2 Lymph % (Auto) 26.9 [place] % (Auto) 6.1 Eos % (Auto) 10.4 Baso % (Auto) 0.7 Neut # (Auto) 4.1 Lymph # (Auto) 2.0 [place] # (Auto) 0.5 Eos # (Auto) 0.8 Baso # (Auto) 0.1 Immature Gran % 0.7 Nucleated RBC % 0.0 Immature Gran # 0.05 Nucleated RBCs # 0.00 Sodium 137 Potassium 4.2 Chloride 100 Carbon Dioxide 31 Anion Gap 10.2 BUN 20 H Creatinine 1.50 H GFR Calculation 58 BUN/Creatinine Ratio 13.00 Glucose 101 POC Glucose Calculated Osmolality 275.8 Calcium 8.9 Total Bilirubin AST ALT Alkaline Phosphatase Total Creatine Kinase CK-MB (CK-2) Troponin I Total Protein Albumin Globulin Albumin/Globulin Ratio DS: Provider Primary care physician: Neftaly Tomas MD Consults: 11/22/16 15:04 Consult to Cardiac Rehabilitation [CONS] Routine Reason for Cardiac Rehabilitation: Risk Factor Modification Appt Out Pt Cardiac Rehab Home Exercise Program/Thor Discharging clinician: Josh Quiles MD
[2016-11-23] MEDS: ATENOLOL 25 MG TABLET PO SCH (09:32)
--- NOTE | 2016-11-23 10:49 | Cardiology Progress Note ---
Assessment and Plan (1) Progressive angina Status: Acute Assessment and plan: The patient has progressive angina. There is a greater than 90% chance that he has some new CAD causing symptoms. He has failed medical therapy Plan/recommendations: He has stopped his Eliquis He is to continue his aspirin I will give him aspirin 325 mg chewed upon arrival Hydrate well with normal saline Left heart cath and possible PTCA or stent Left heart cath and possible PTCA or stent were discussed with the patient. The risk of the procedure include but are not limited to a small risk of injury to the vessel, abnormal heart rhythm, stroke, heart attack, need for emergent surgery, contrast reaction, restenosis, or . The patient voices understanding, agrees with the plan, and desires to proceed with the heart catheterization. 11/23/16: Plan/recommendation: The patient is doing well post stent. Blood pressure and pulse is slightly low. Will discontinue the atenolol. Will hold on the pain medicine until her blood pressure is better. Is a low heart rate will hold the atenolol and amiodarone today but restart the amiodarone tomorrow. I conferred care with his nurse and with the patient. Plan is to ambulate him around noon. If he is able to ambulate without hypotension, dizziness, groin problems, and is able to void he will be discharged later with follow-up. I discussed with him about C-spine DARLING. Given he will need to be on the Brilinta, uninterrupted, he will need to be delayed 6-12 months. There will be other approaches to helping control his pain Current Visit: Yes (2) Paroxysmal atrial fibrillation Status: Acute Current Visit: Yes (3) COPD (chronic obstructive pulmonary disease) Status: Acute Current Visit: No (4) Diabetes mellitus Status: Acute Current Visit: No (5) High risk medication use Status: Acute Current Visit: No (6) Hyperlipidemia Status: Acute Current Visit: No (7) Narcotic dependence Problem details: Long-term opioid use Status: Acute Current Visit: No (8) Anxiety and depression Status: Chronic Current Visit: No (9) Chronic pain Status: Chronic Current Visit: No (10) Diabetes Status: Chronic Current Visit: No Qualifiers: Diabetes mellitus type: type 2 Diabetes mellitus complication status: with unspecified complications (11) H/O four vessel coronary artery bypass graft Status: Chronic Current Visit: No (12) Bradycardia Status: Acute Current Visit: Yes Cardiology - PN: Subj Interval history: No chest pain or shortness of breath. Some minimal groin oozing. Exam (Progress Note) - Constitutional Vitals: Period Temp Pulse Resp BP Sys/Ingram Pulse Ox Last 24 Hr 94.8 F-98.5 F 47-57 16-20 91-138/46-86 92-99 Exam: HEENT: Pupils equal, reactive to light and accommodation Neck: NoJVD or bruit Lungs clear to auscultation Heart: Regular rhythm rate with normal S1 and S2. Apical S4 Abdomen: No hepatosplenomegaly Spine/extremities: No clubbing, cyanosis, or edema Neuro: Nonfocal Psych: No depression or anxiety Right groin puncture site is without hematoma. Distal pulse is 3-4+ Result/EKG - Labs CBC & BMP: 11/23/16 06:24 11/23/16 06:24 Lab Results: I have reviewed the past 24 hour labs Labs: Laboratory Results - last 24 hr 11/22/16 11/22/16 11/22/16 12:30 12:38 17:20 WBC 7.4 RBC 4.56 Hgb 13.0 L Hct 41.7 L MCV 91.4 MCH 29 MCHC 31.2 L RDW 14.2 Plt Count 176 MPV 11.5 Neut % (Auto) 55.2 Lymph % (Auto) 26.9 [place] % (Auto) 6.1 Eos % (Auto) 10.4 Baso % (Auto) 0.7 Neut # (Auto) 4.1 Lymph # (Auto) 2.0 [place] # (Auto) 0.5 Eos # (Auto) 0.8 Baso # (Auto) 0.1 Immature Gran % 0.7 Nucleated RBC % 0.0 Immature Gran # 0.05 Nucleated RBCs # 0.00 Sodium 137 Potassium 4.2 Chloride 100 Carbon Dioxide 31 Anion Gap 10.2 BUN 20 H Creatinine 1.50 H GFR Calculation 58 BUN/Creatinine Ratio 13.00 Glucose 101 POC Glucose Calculated Osmolality 275.8 Calcium 8.9 Total Bilirubin AST ALT Alkaline Phosphatase Total Creatine Kinase 30 L CK-MB (CK-2) < 1.0 Troponin I < 0.015 Total Protein Albumin Globulin Albumin/Globulin Ratio 11/22/16 11/23/16 11/23/16 22:30 06:24 06:24 WBC 7.8 RBC 3.77 L Hgb 11.1 L Hct 35.0 L MCV 92.8 MCH 29 MCHC 31.7 L RDW 14.3 Plt Count 168 MPV 11.8 Neut % (Auto) 55.8 Lymph % (Auto) 23.7 [place] % (Auto) 8.7 Eos % (Auto) 10.8 Baso % (Auto) 0.6 Neut # (Auto) 4.4 Lymph # (Auto) 1.9 [place] # (Auto) 0.7 Eos # (Auto) 0.8 Baso # (Auto) 0.1 Immature Gran % 0.4 Nucleated RBC % 0.0 Immature Gran # 0.03 Nucleated RBCs # 0.00 Sodium 142 Potassium 4.4 Chloride 105 Carbon Dioxide 31 Anion Gap 10.4 BUN 16 Creatinine 1.20 GFR Calculation 78 BUN/Creatinine Ratio 13.00 Glucose 134 H POC Glucose Calculated Osmolality 285.1 Calcium 8.1 L Total Bilirubin 1.00 AST 13 ALT 18 Alkaline Phosphatase 72 Total Creatine Kinase 33 L CK-MB (CK-2) < 1.0 Troponin I < 0.015 Total Protein 5.4 L Albumin 2.9 L Globulin 2.5 Albumin/Globulin Ratio 1.1 11/23/16 11/23/16 06:25 07:48 WBC RBC Hgb Hct MCV MCH MCHC RDW Plt Count MPV Neut % (Auto) Lymph % (Auto) [place] % (Auto) Eos % (Auto) Baso % (Auto) Neut # (Auto) Lymph # (Auto) [place] # (Auto) Eos # (Auto) Baso # (Auto) Immature Gran % Nucleated RBC % Immature Gran # Nucleated RBCs # Sodium Potassium Chloride Carbon Dioxide Anion Gap BUN Creatinine GFR Calculation BUN/Creatinine Ratio Glucose POC Glucose 167 H Calculated Osmolality Calcium Total Bilirubin AST ALT Alkaline Phosphatase Total Creatine Kinase 38 L CK-MB (CK-2) < 1.0 Troponin I 0.017 Total Protein Albumin Globulin Albumin/Globulin Ratio Quality Measures - VTE Contraindication to Pharmacological VTE Prophylaxis: High Risk of Bleeding Specialty Discharge - Follow Up or Referrals Follow up with: Josh Quiles MD [Physician] - (In about 3-4 weeks. I can see the patient sooner if needed.)
[2016-11-23] MEDS: MORPHINE ER 30 MG TABLET PO PRN (13:04)
[2016-11-23 13:36] VITALS: BP 118/73
[2016-11-24] MEDS ORDERED: NON-FORMULARY MEDICATION (Fluticasone/Vilanterol [Breo Ellipta 100-25 Mcg Inh] 1 PUFF) INH SCH (09:00)
== END 2016-11-23 16:00 | disposition home or self-care (01) ==
LOC: N.CL 11:16 → N.TELEN 11:16 → N.CL 11:56 → N.TELEN 17:01
PROVIDERS: ADMIT Internal Medicine Cardiovascular Disease; ATTEND Internal Medicine Cardiovascular Disease

== ENCOUNTER 2018-01-15 13:44 | Observation (INO) ==
[2018-01-15] MEDS ORDERED: MORPHINE 4 MG/1 ML VIAL IV STA ×3 (16:40→18:36)
[2018-01-15] MEDS ORDERED: ASPIRIN 325 MG TABLET PO STA (16:40)
[2018-01-15] MEDS ORDERED: ONDANSETRON 4 MG/2 ML VIAL IV STA (16:40)
[2018-01-15 16:59] LABS: Basophils # 0.1 10*3/uL (0.0-0.2); Basophils % 0.6 % (0.0-0.8); Eosinophils # 0.3 10*3/uL (0.0-0.87); Hematocrit 42.6 VOL% (42.0-52.0); Hemoglobin 13.6 GM/DL (14.0-18.0); Immature Granulocytes % 0.6 %; Immature Granulocytes Absolute 0.06 #; Lymphocytes # 2.8 10*3/uL (1.4-4.0); Lymphocytes % 26.4 % (21.2-54.2); Mean Corpuscular HGB Conc 31.9 GM/DL (32-36); Mean Corpuscular Hemoglobin 29 PG (27-34); Mean Corpuscular Volume 91.2 FL (87-102); Mean Platelet Volume 11.4 FL (9.6-12.0); Monocytes # 0.6 10*3/uL (0.11-0.8); Monocytes % 5.8 % (1.7-12.7); Neutrophils # 6.8 10*3/uL (1.4-7.4); Neutrophils % 63.6 % (38.7-73.9); Platelet Count 217 T/CUMM (130-400); Red Blood Count 4.67 MC/CUMM (3.8-5.5); Red Cell Distribution Width 13.2 % (9.3-17.3); White Blood Count 10.7 T/CUMM (4-12)
[2018-01-15 17:18] LABS: PT Patient Result 10.1 SECS; Partial Thromboplastin Time 27.5 SECS (0-40)
[2018-01-15 17:43] LABS: Alanine Aminotransferase 23 U/L (16-61); Albumin 3.3 G/DL (3.4-5.0); Alkaline Phosphatase 134 U/L (45-117); Aspartate Amino Transferase 18 U/L (0-37); Bilirubin,Total < 0.39 MG/DL (0.2-1.0); Blood Urea Nitrogen 18 MG/DL (7-18); Calcium 8.7 MG/DL (8.5-10.1); Glucose 97 MG/DL (74-106); Osmolality,Calculated 284.1 MOS/KG (273-304); Sodium 142 MMOL/L (136-145); Total Protein 7.2 G/DL (6.4-8.3)
[2018-01-15] MEDS ORDERED: SODIUM CHLORIDE 0.9% 1,000 ML IV SCH (20:00)
[2018-01-15] MEDS ORDERED: ACETAMINOPHEN 325 MG TABLET PO PRN (20:04)
[2018-01-15] MEDS ORDERED: GLUCAGON 1 MG VIAL IM PRN (20:04)
[2018-01-15] MEDS ORDERED: DEXTROSE 50% 25 GM/50 ML VIAL IV PRN (20:04)
[2018-01-15] MEDS ORDERED: ONDANSETRON 4 MG/2 ML VIAL IV PRN (20:04)
[2018-01-15] MEDS: NITROGLYCERIN 2% OINT 1 INCH/GM PACK TOP SCH (21:04)
[2018-01-15] MEDS: DOCUSATE SODIUM 100 MG CAPSULE PO SCH (21:04)
[2018-01-15] MEDS: SODIUM CHLORIDE 0.9% 1,000 ML IV SCH (21:20)
[2018-01-15] MEDS: INSULIN LISPRO 100 UNIT/ML SUBCUT SCH (21:20)
[2018-01-16] MEDS: NITROGLYCERIN 2% OINT 1 INCH/GM PACK TOP SCH ×5 (02:34→20:49)
[2018-01-16] MEDS: SODIUM CHLORIDE 0.9% 1,000 ML IV SCH ×2 (05:10→12:55)
[2018-01-16] MEDS: PANTOPRAZOLE 40 MG TABLET PO SCH (08:23)
[2018-01-16] MEDS: DOCUSATE SODIUM 100 MG CAPSULE PO SCH ×3 (08:23→20:51)
[2018-01-16] MEDS: INSULIN LISPRO 100 UNIT/ML SUBCUT SCH ×4 (08:29→20:46)
[2018-01-16] MEDS ORDERED: ENOXAPARIN 100 MG/ML SYRINGE SUBCUT ONE (15:20)
[2018-01-16] MEDS ORDERED: traMADol 50 MG TABLET PO ONE (15:22)
[2018-01-16] MEDS ORDERED: MAGNESIUM SULF RIDER 2 GM in PREMIX 1 EACH IV PRN (15:45)
[2018-01-16] MEDS ORDERED: POTASSIUM CHLORIDE RIDER 10 MEQ in PREMIX 1 EACH IV PRN (15:45)
[2018-01-16] MEDS ORDERED: Fluticasone/Vilanterol [Breo Ellipta 100-25 Mcg Inh] 1 PUFF INH PRN (15:48)
[2018-01-16] MEDS ORDERED: MIRTAZAPINE 15 MG TABLET PO PRN (15:48)
[2018-01-16] MEDS ORDERED: ALBUTEROL 2.5 MG/3 ML NEB RESP TX PRN (19:00)
[2018-01-16] MEDS: MAGNESIUM CHLORIDE 64 MG TABLET PO SCH (20:45)
[2018-01-16] MEDS: ATORVASTATIN 20 MG TABLET PO SCH (20:45)
[2018-01-16] MEDS: traMADol 50 MG TABLET PO SCH (20:45)
[2018-01-16] MEDS: GABAPENTIN 300 MG CAPSULE PO SCH (20:45)
[2018-01-16] MEDS: ACETAMINOPHEN 325 MG TABLET PO SCH (20:45)
[2018-01-16] MEDS: ALPRAZolam 0.25 MG TABLET PO SCH (20:53)
[2018-01-17] MEDS: NITROGLYCERIN 2% OINT 1 INCH/GM PACK TOP SCH ×4 (02:00→21:26)
[2018-01-17 05:10] LABS: Basophils # 0.1 10*3/uL (0.0-0.2); Basophils % 0.7 % (0.0-0.8); Eosinophils # 0.4 10*3/uL (0.0-0.87); Eosinophils % 5.1 % (0.00-10.9); Hematocrit 35.7 VOL% (42.0-52.0); Hemoglobin 11.5 GM/DL (14.0-18.0); Immature Granulocytes % 0.4 %; Immature Granulocytes Absolute 0.03 #; Lymphocytes # 2.4 10*3/uL (1.4-4.0); Lymphocytes % 34.5 % (21.2-54.2); Mean Corpuscular HGB Conc 32.2 GM/DL (32-36); Mean Corpuscular Hemoglobin 30 PG (27-34); Mean Corpuscular Volume 91.5 FL (87-102); Mean Platelet Volume 12.1 FL (9.6-12.0); Monocytes # 0.4 10*3/uL (0.11-0.8); Neutrophils # 3.6 10*3/uL (1.4-7.4); Neutrophils % 53.3 % (38.7-73.9); Platelet Count 157 T/CUMM (130-400); White Blood Count 6.8 T/CUMM (4-12)
[2018-01-17 05:17] LABS: Osmolality,Calculated 287.1 MOS/KG (273-304); Potassium 4.2 MMOL/L (3.5-5.1)
[2018-01-17 05:18] LABS: Calcium 8.1 MG/DL (8.5-10.1); Osmolality,Calculated 287.1 MOS/KG (273-304); Potassium 4.2 MMOL/L (3.5-5.1)
[2018-01-17 05:34] LABS: INR 0.9
[2018-01-17] MEDS: LEVOTHYROXINE 50 MCG TABLET PO SCH (06:40)
[2018-01-17] MEDS ORDERED: SODIUM CHLORIDE 0.9% 1,000 ML IV SCH (07:00)
[2018-01-17] MEDS ORDERED: DIAZEPAM 5 MG TABLET PO ONE (07:00)
[2018-01-17] MEDS ORDERED: diphenhydrAMINE CAP 25 MG CAPSULE PO ONE (07:00)
[2018-01-17] MEDS: INSULIN LISPRO 100 UNIT/ML SUBCUT SCH ×4 (08:01→22:09)
[2018-01-17] MEDS: glipiZIDE 5 MG TABLET PO SCH (08:01)
[2018-01-17] MEDS: GABAPENTIN 300 MG CAPSULE PO SCH ×3 (08:47→21:25)
[2018-01-17] MEDS: MAGNESIUM CHLORIDE 64 MG TABLET PO SCH ×2 (08:47→21:24)
[2018-01-17] MEDS: traMADol 50 MG TABLET PO SCH ×2 (08:47→21:25)
[2018-01-17] MEDS: CHOLECALCIFEROL 1,000 UNIT TABLET PO SCH (08:47)
[2018-01-17] MEDS: ESCITALOPRAM 10 MG TABLET PO SCH (08:48)
[2018-01-17] MEDS: DOCUSATE SODIUM 100 MG CAPSULE PO SCH ×3 (08:48→21:27)
[2018-01-17] MEDS: ALPRAZolam 0.25 MG TABLET PO SCH ×2 (08:49→21:25)
[2018-01-17] MEDS: PANTOPRAZOLE 40 MG TABLET PO SCH (08:49)
[2018-01-17] MEDS: LOSARTAN 25 MG TABLET PO SCH (08:49)
[2018-01-17] MEDS: ACETAMINOPHEN 325 MG TABLET PO SCH ×2 (08:49→21:25)
[2018-01-17] MEDS: MULTIVITAMIN (CENTRUM) TABLET PO SCH (08:49)
[2018-01-17] MEDS: ASPIRIN CHEW 81 MG TABLET PO SCH (08:50)
[2018-01-17] MEDS: AMIODARONE 200 MG TABLET PO SCH (08:50)
[2018-01-17] MEDS ORDERED: LIDOCAINE 1% 20 ML VIAL ONE (13:01)
[2018-01-17] MEDS ORDERED: MIDAZOLAM 2 MG/2 ML VIAL ONE (13:10)
[2018-01-17] MEDS ORDERED: fentaNYL 100 MCG/2 ML VIAL ONE (13:10)
[2018-01-17] MEDS ORDERED: HEPARIN 5,000 UNIT/1 ML VIAL ONE (13:21)
[2018-01-17] MEDS ORDERED: ACETAMINOPHEN/CODEINE 300-30 MG TABLET PO PRN (14:34)
[2018-01-17] MEDS: MORPHINE ER 30 MG TABLET PO SCH (21:25)
[2018-01-17] MEDS: ATORVASTATIN 20 MG TABLET PO SCH (21:25)
[2018-01-18] MEDS: NITROGLYCERIN 2% OINT 1 INCH/GM PACK TOP SCH ×3 (02:25→14:29)
[2018-01-18 04:37] LABS: Basophils # 0.1 10*3/uL (0.0-0.2); Basophils % 0.6 % (0.0-0.8); Eosinophils # 0.6 10*3/uL (0.0-0.87); Eosinophils % 6.3 % (0.00-10.9); Hematocrit 38.1 VOL% (42.0-52.0); Hemoglobin 12.1 GM/DL (14.0-18.0); Immature Granulocytes % 0.4 %; Immature Granulocytes Absolute 0.04 #; Lymphocytes # 1.9 10*3/uL (1.4-4.0); Lymphocytes % 19.5 % (21.2-54.2); Mean Corpuscular HGB Conc 31.8 GM/DL (32-36); Mean Corpuscular Hemoglobin 29 PG (27-34); Mean Corpuscular Volume 91.4 FL (87-102); Mean Platelet Volume 11.5 FL (9.6-12.0); Monocytes # 0.6 10*3/uL (0.11-0.8); Monocytes % 6.4 % (1.7-12.7); Neutrophils # 6.5 10*3/uL (1.4-7.4); Neutrophils % 66.8 % (38.7-73.9); Platelet Count 166 T/CUMM (130-400); Red Blood Count 4.17 MC/CUMM (3.8-5.5); White Blood Count 9.7 T/CUMM (4-12)
[2018-01-18 05:04] LABS: Albumin 2.8 G/DL (3.4-5.0); Bilirubin,Total 0.5 MG/DL (0.2-1.0); Calcium 8.2 MG/DL (8.5-10.1); Osmolality,Calculated 284.5 MOS/KG (273-304); Total Protein 6.2 G/DL (6.4-8.3)
[2018-01-18] MEDS: LEVOTHYROXINE 50 MCG TABLET PO SCH (06:03)
[2018-01-18] MEDS: INSULIN LISPRO 100 UNIT/ML SUBCUT SCH ×3 (07:31→17:32)
[2018-01-18] MEDS: CHOLECALCIFEROL 1,000 UNIT TABLET PO SCH (08:20)
[2018-01-18] MEDS: MORPHINE ER 30 MG TABLET PO SCH (08:21)
[2018-01-18] MEDS: MULTIVITAMIN (CENTRUM) TABLET PO SCH (08:21)
[2018-01-18] MEDS: MAGNESIUM CHLORIDE 64 MG TABLET PO SCH (08:21)
[2018-01-18] MEDS: ACETAMINOPHEN 325 MG TABLET PO SCH (08:21)
[2018-01-18] MEDS: ASPIRIN CHEW 81 MG TABLET PO SCH (08:22)
[2018-01-18] MEDS: PANTOPRAZOLE 40 MG TABLET PO SCH (08:22)
[2018-01-18] MEDS: GABAPENTIN 300 MG CAPSULE PO SCH ×2 (08:22→14:48)
[2018-01-18] MEDS: ESCITALOPRAM 10 MG TABLET PO SCH (08:22)
[2018-01-18] MEDS: DOCUSATE SODIUM 100 MG CAPSULE PO SCH (08:22)
[2018-01-18] MEDS: traMADol 50 MG TABLET PO SCH (08:22)
[2018-01-18] MEDS: ALPRAZolam 0.25 MG TABLET PO SCH (08:22)
[2018-01-18] MEDS: glipiZIDE 5 MG TABLET PO SCH (08:23)
[2018-01-18] MEDS: AMIODARONE 200 MG TABLET PO SCH (08:23)
[2018-01-18] MEDS: LOSARTAN 25 MG TABLET PO SCH (08:23)
[2018-01-18] MEDS ORDERED: PHENOL 1.4% THROAT SPRAY 177 ML BOTTLE PO PRN (15:42)
[2018-01-18 16:24] VITALS: BP 130/72
== END 2018-01-18 18:47 | disposition home or self-care (01) ==
LOC: N.EDINP 13:44 → N.ED 13:44 → N.TELEN 19:30
PROVIDERS: ADMIT Family Medicine; ATTEND Family Medicine

== ENCOUNTER 2018-07-23 01:56 | Inpatient (IN) ==
[2018-07-23] MEDS ORDERED: methylPREDNISolone SOD SUC 125 MG/2 ML VIAL IV STA (02:12)
[2018-07-23] MEDS ORDERED: MORPHINE 4 MG/1 ML VIAL IV STA (02:12)
[2018-07-23] MEDS ORDERED: ALBUTEROL/IPRATROPIUM 3 ML NEB RESP TX STA (02:12)
[2018-07-23] MEDS ORDERED: ONDANSETRON 4 MG/2 ML VIAL IV STA ×2 (02:12→03:28)
[2018-07-23] MEDS ORDERED: HYDROmorphone 2 MG/1 ML VIAL ONE ×2 (03:27→11:22)
[2018-07-23] MEDS ORDERED: HYDROmorphone 2 MG/1 ML VIAL IV ONE (03:28)
[2018-07-23 03:32] LABS: Basophils % 0.3 % (0.0-0.8); Eosinophils # 0.1 10*3/uL (0.0-0.87); Eosinophils % 0.6 % (0.00-10.9); Hematocrit 36.5 VOL% (42.0-52.0); Hemoglobin 11.3 GM/DL (14.0-18.0); Immature Granulocytes Absolute 0.14 #; Lymphocytes # 1.4 10*3/uL (1.4-4.0); Lymphocytes % 10.6 % (21.2-54.2); Mean Corpuscular Hemoglobin 29 PG (27-34); Mean Corpuscular Volume 92.6 FL (87-102); Mean Platelet Volume 11.5 FL (9.6-12.0); Monocytes # 0.6 10*3/uL (0.11-0.8); Monocytes % 4.2 % (1.7-12.7); Neutrophils # 11.1 10*3/uL (1.4-7.4); Neutrophils % 83.3 % (38.7-73.9); Platelet Count 227 T/CUMM (130-400); Red Blood Count 3.94 MC/CUMM (3.8-5.5); Red Cell Distribution Width 13.1 % (9.3-17.3); White Blood Count 13.4 T/CUMM (4-12)
[2018-07-23 03:39] LABS: PT Patient Result 10.5 SECS
[2018-07-23 03:52] LABS: Alanine Aminotransferase 21 U/L (16-61); Alkaline Phosphatase 141 U/L (45-117); Aspartate Amino Transferase 16 U/L (0-37); Bilirubin,Total < 0.39 MG/DL (0.2-1.0); Blood Urea Nitrogen 16 MG/DL (7-18); Calcium 8.1 MG/DL (8.5-10.1); Glucose 234 MG/DL (74-106); Osmolality,Calculated 285.5 MOS/KG (273-304); Potassium 4.2 MMOL/L (3.5-5.1); Sodium 139 MMOL/L (136-145)
[2018-07-23] MEDS ORDERED: DEXTROSE 50% 25 GM/50 ML SYRINGE IV PRN (04:08)
[2018-07-23] MEDS ORDERED: HYDROmorphone 2 MG/1 ML VIAL IV PRN (04:08)
[2018-07-23] MEDS ORDERED: GLUCAGON 1 MG VIAL IM PRN (04:08)
[2018-07-23] MEDS ORDERED: ACETAMINOPHEN 325 MG TABLET PO PRN (04:08)
[2018-07-23] MEDS ORDERED: ONDANSETRON 4 MG/2 ML VIAL IV PRN ×2 (04:08→11:08)
[2018-07-23] MEDS: SODIUM CHLORIDE 0.9% 1,000 ML IV SCH ×2 (05:24→17:51)
[2018-07-23] MEDS: ALBUTEROL/IPRATROPIUM 3 ML NEB RESP TX SCH ×5 (07:12→21:07)
[2018-07-23] MEDS ORDERED: ceFAZolin 2,000 MG in PREMIX 1 EACH IV ONE (07:37)
[2018-07-23] MEDS ORDERED: VANCOMYCIN INJ 1,000 MG in SODIUM CHLORIDE 0.9% 250 ML IV ONE (07:37)
[2018-07-23] MEDS: INSULIN REGULAR 100 UNIT/ML SUBCUT SCH ×4 (08:40→20:40)
[2018-07-23] MEDS: DOCUSATE SODIUM 100 MG CAPSULE PO SCH ×2 (08:41→20:37)
[2018-07-23] MEDS ORDERED: TEMAZEPAM 7.5 MG CAPSULE PO PRN (08:58)
[2018-07-23] MEDS ORDERED: BISACODYL 10 MG SUPP RECTAL PRN (08:58)
[2018-07-23] MEDS ORDERED: LACTULOSE 20 GM/30 ML UDCUP PO PRN (08:58)
[2018-07-23] MEDS ORDERED: PROMETHAZINE 25 MG/1 ML VIAL IM PRN (08:58)
[2018-07-23] MEDS ORDERED: NON-FORMULARY MEDICATION (Fluticasone/Vilanterol [Breo Ellipta 100-25 Mcg Inh] 1 PUFF) INH PRN (09:03)
[2018-07-23] MEDS ORDERED: NITROGLYCERIN SL 0.4 MG TABLET SL PRN (09:03)
[2018-07-23] MEDS ORDERED: MIRTAZAPINE 15 MG TABLET PO PRN (09:03)
[2018-07-23] MEDS ORDERED: ALBUTEROL 2.5 MG/3 ML NEB RESP TX PRN (09:30)
[2018-07-23] MEDS ORDERED: fentaNYL 100 MCG/2 ML VIAL ONE (10:59)
[2018-07-23] MEDS ORDERED: SEVOFLURANE 1 UNIT/15 MINUTE INH ONE (10:59)
[2018-07-23] MEDS ORDERED: ACETAMINOPHEN 1,000 MG/100 ML VIAL IV ONE (11:00)
[2018-07-23] MEDS ORDERED: GLYCOPYRROLATE 0.4 MG/2 ML VIAL ONE (11:00)
[2018-07-23] MEDS ORDERED: ETOMIDATE 40 MG/20 ML VIAL IV ONE (11:00)
[2018-07-23] MEDS ORDERED: methylPREDNISolone SOD SUC 40 MG/1 ML VIAL IV SCH (11:00)
[2018-07-23] MEDS ORDERED: ONDANSETRON 4 MG/2 ML VIAL ONE ×2 (11:00→11:22)
[2018-07-23] MEDS ORDERED: NEOSTIGMINE 10 MG/10 ML VIAL ONE (11:00)
[2018-07-23] MEDS ORDERED: LACTATED RINGERS 1,000 ML IV ONE (11:00)
[2018-07-23] MEDS ORDERED: ePHEDrine 50 MG/ML AMP ONE (11:00)
[2018-07-23 11:01] LABS: Amorphous Crystals,Urine Occasional /HPF (Few); Apearance,Urine CLOUDY (Clear); Bilirubin,Urine Negative (Negative); Blood, Urine Large mg/dL (Negative); Glucose,Urine (UA) 50 mg/dL (Negative); Ketones,Urine Negative (Negative); Mucus,Urine Occasional /LPF (Occasional); Nitrite,Urine Negative (Negative); Protein,Urine Negative; RBC,Urine 54 /HPF (0-4); Urine Color Amber (Yellow); Urine Specific Gravity 1.026 (1.001-1.035); Urine Urobilinogen < 2.0 EU/DL (0.2-1.0); WBC,Urine 9 /HPF (0-6)
[2018-07-23] MEDS ORDERED: ALBUTEROL 2.5 MG/3 ML NEB RESP TX ONE (11:05)
[2018-07-23] MEDS: HYDROmorphone 2 MG/1 ML VIAL IV PRN ×7 (11:26→21:48)
[2018-07-23] MEDS: methylPREDNISolone SOD SUC 40 MG/1 ML VIAL IV SCH ×2 (13:06→20:38)
[2018-07-23] MEDS: PANTOPRAZOLE 40 MG VIAL IV SCH (13:06)
[2018-07-23] MEDS: GABAPENTIN 300 MG CAPSULE PO SCH ×2 (15:17→20:37)
[2018-07-23] MEDS: ceFAZolin 2,000 MG in PREMIX 1 EACH IV SCH ×2 (15:17→23:44)
[2018-07-23] MEDS: ZALEPLON 5 MG CAPSULE PO SCH (20:36)
[2018-07-23] MEDS: ATORVASTATIN 20 MG TABLET PO SCH (20:36)
[2018-07-23] MEDS: metFORMIN 500 MG TABLET PO SCH (20:37)
[2018-07-23] MEDS: MORPHINE ER 30 MG TABLET PO SCH (20:37)
[2018-07-23] MEDS: MAGNESIUM CHLORIDE 64 MG TABLET PO SCH (20:37)
[2018-07-23] MEDS ORDERED: DOCUSATE SODIUM 100 MG CAPSULE PO SCH (21:00)
[2018-07-23] MEDS ORDERED: NON-FORMULARY MEDICATION (Omeprazole [Prilosec] 20 MG) PO SCH (21:00)
[2018-07-24] MEDS: ALBUTEROL/IPRATROPIUM 3 ML NEB RESP TX SCH ×6 (00:33→18:43)
[2018-07-24] MEDS: HYDROmorphone 2 MG/1 ML VIAL IV PRN ×7 (00:36→21:32)
[2018-07-24 06:34] LABS: Basophils % 0.1 % (0.0-0.8); Hematocrit 27.7 VOL% (42.0-52.0); Immature Granulocytes % 0.7 %; Immature Granulocytes Absolute 0.13 #; Lymphocytes % 5.8 % (21.2-54.2); Mean Corpuscular HGB Conc 31.4 GM/DL (32-36); Mean Corpuscular Hemoglobin 29 PG (27-34); Mean Corpuscular Volume 91.7 FL (87-102); Mean Platelet Volume 12.2 FL (9.6-12.0); Monocytes # 0.5 10*3/uL (0.11-0.8); Monocytes % 2.6 % (1.7-12.7); Neutrophils # 15.8 10*3/uL (1.4-7.4); Neutrophils % 90.8 % (38.7-73.9); Platelet Count 188 T/CUMM (130-400); Red Cell Distribution Width 13.4 % (9.3-17.3); White Blood Count 17.4 T/CUMM (4-12)
[2018-07-24 06:35] LABS: Red Blood Count 3.02 MC/CUMM (3.8-5.5)
[2018-07-24 06:36] LABS: Hemoglobin 8.7 GM/DL (14.0-18.0)
[2018-07-24 06:42] LABS: Albumin 2.6 G/DL (3.4-5.0); Bilirubin,Total 0.9 MG/DL (0.2-1.0); Calcium 8.1 MG/DL (8.5-10.1); Potassium 4.7 MMOL/L (3.5-5.1); Total Protein 5.8 G/DL (6.4-8.3)
[2018-07-24 06:57] LABS: Band Neutrophils 2 % (0-10); Hypochromasia 1+; Lymphocytes 4 % (20-55); Ovalocytes Slight; Platelet Estimate Adequate; Segmented Neutrophils 91 % (50-85); Total Cells Counted 100
[2018-07-24] MEDS: LEVOTHYROXINE 50 MCG TABLET PO SCH (07:50)
[2018-07-24] MEDS: INSULIN REGULAR 100 UNIT/ML SUBCUT SCH ×4 (08:58→20:15)
[2018-07-24] MEDS: PANTOPRAZOLE 40 MG VIAL IV SCH (08:59)
[2018-07-24] MEDS: ESCITALOPRAM 10 MG TABLET PO SCH (08:59)
[2018-07-24] MEDS: SODIUM CHLORIDE 0.9% 1,000 ML IV SCH ×3 (08:59→22:18)
[2018-07-24] MEDS: MAGNESIUM CHLORIDE 64 MG TABLET PO SCH ×2 (08:59→20:14)
[2018-07-24] MEDS: CHOLECALCIFEROL 5,000 UNIT TABLET PO SCH (09:00)
[2018-07-24] MEDS: FERROUS GLUCONATE 240 MG TABLET PO SCH (09:00)
[2018-07-24] MEDS: glipiZIDE 5 MG TABLET PO SCH (09:00)
[2018-07-24] MEDS: MULTIVITAMIN (CENTRUM) TABLET PO SCH (09:00)
[2018-07-24] MEDS: DOCUSATE SODIUM 100 MG CAPSULE PO SCH ×2 (09:00→20:14)
[2018-07-24] MEDS: metFORMIN 500 MG TABLET PO SCH ×2 (09:00→20:14)
[2018-07-24] MEDS: CLOPIDOGREL 75 MG TABLET PO SCH (09:00)
[2018-07-24] MEDS: GABAPENTIN 300 MG CAPSULE PO SCH ×3 (09:00→20:14)
[2018-07-24] MEDS: LOSARTAN 25 MG TABLET PO SCH (09:00)
[2018-07-24] MEDS: MORPHINE ER 30 MG TABLET PO SCH ×2 (09:01→20:14)
[2018-07-24] MEDS: APIXABAN 2.5 MG TABLET PO SCH ×2 (09:01→20:14)
[2018-07-24] MEDS: AMIODARONE 200 MG TABLET PO SCH (09:01)
[2018-07-24] MEDS: ZALEPLON 5 MG CAPSULE PO SCH (20:14)
[2018-07-24] MEDS: ATORVASTATIN 20 MG TABLET PO SCH (20:14)
[2018-07-24] MEDS: diphenhydrAMINE CAP 25 MG CAPSULE PO PRN (22:08)
[2018-07-25] MEDS: ALBUTEROL/IPRATROPIUM 3 ML NEB RESP TX SCH ×7 (00:15→23:55)
[2018-07-25] MEDS: HYDROmorphone 2 MG/1 ML VIAL IV PRN ×7 (00:31→22:22)
[2018-07-25] MEDS: diphenhydrAMINE CAP 25 MG CAPSULE PO PRN (04:09)
[2018-07-25 05:52] LABS: Basophils % 0.1 % (0.0-0.8); Eosinophils % 0.2 % (0.00-10.9); Hematocrit 25.9 VOL% (42.0-52.0); Hemoglobin 7.9 GM/DL (14.0-18.0); Immature Granulocytes % 1.6 %; Immature Granulocytes Absolute 0.24 #; Lymphocytes # 1.4 10*3/uL (1.4-4.0); Lymphocytes % 9.3 % (21.2-54.2); Mean Corpuscular HGB Conc 30.9 GM/DL (32-36); Mean Corpuscular Hemoglobin 29 PG (27-34); Mean Corpuscular Volume 93.5 FL (87-102); Mean Platelet Volume 11.7 FL (9.6-12.0); Monocytes # 0.8 10*3/uL (0.11-0.8); Monocytes % 5.4 % (1.7-12.7); Neutrophils # 12.8 10*3/uL (1.4-7.4); Neutrophils % 83.4 % (38.7-73.9); Platelet Count 189 T/CUMM (130-400); Red Blood Count 2.77 MC/CUMM (3.8-5.5); White Blood Count 15.4 T/CUMM (4-12)
[2018-07-25 05:55] LABS: Albumin 2.6 G/DL (3.4-5.0); Bilirubin,Total 0.4 MG/DL (0.2-1.0); Osmolality,Calculated 288.3 MOS/KG (273-304); Potassium 4.9 MMOL/L (3.5-5.1); Total Protein 5.5 G/DL (6.4-8.3)
[2018-07-25] MEDS: LEVOTHYROXINE 50 MCG TABLET PO SCH (06:23)
[2018-07-25] MEDS: APIXABAN 2.5 MG TABLET PO SCH (09:26)
[2018-07-25] MEDS: INSULIN REGULAR 100 UNIT/ML SUBCUT SCH ×4 (09:39→21:14)
[2018-07-25] MEDS: CLOPIDOGREL 75 MG TABLET PO SCH (10:01)
[2018-07-25] MEDS: MAGNESIUM CHLORIDE 64 MG TABLET PO SCH ×2 (10:01→21:13)
[2018-07-25] MEDS: ESCITALOPRAM 10 MG TABLET PO SCH (10:01)
[2018-07-25] MEDS: CHOLECALCIFEROL 5,000 UNIT TABLET PO SCH (10:01)
[2018-07-25] MEDS: MULTIVITAMIN (CENTRUM) TABLET PO SCH (10:01)
[2018-07-25] MEDS: PANTOPRAZOLE 40 MG TABLET PO SCH (10:02)
[2018-07-25] MEDS: LOSARTAN 25 MG TABLET PO SCH (10:02)
[2018-07-25] MEDS: glipiZIDE 5 MG TABLET PO SCH (10:02)
[2018-07-25] MEDS: FERROUS GLUCONATE 240 MG TABLET PO SCH (10:02)
[2018-07-25] MEDS: DOCUSATE SODIUM 100 MG CAPSULE PO SCH ×2 (10:02→21:13)
[2018-07-25] MEDS: GABAPENTIN 300 MG CAPSULE PO SCH ×3 (10:02→21:13)
[2018-07-25] MEDS: AMIODARONE 200 MG TABLET PO SCH (10:02)
[2018-07-25] MEDS: MORPHINE ER 30 MG TABLET PO SCH ×2 (10:02→21:13)
[2018-07-25] MEDS: metFORMIN 500 MG TABLET PO SCH ×2 (10:03→21:13)
[2018-07-25] MEDS: BENZONATATE 100 MG CAPSULE PO PRN ×3 (10:08→22:28)
[2018-07-25] MEDS: SODIUM CHLORIDE 0.9% 1,000 ML IV SCH (10:12)
[2018-07-25] MEDS ORDERED: SODIUM CHLORIDE 0.9% 1,000 ML IV PRN (11:30)
[2018-07-25] MEDS ORDERED: FUROSEMIDE 40 MG/4 ML VIAL IV ONE (16:00)
[2018-07-25] MEDS: ATORVASTATIN 20 MG TABLET PO SCH (21:13)
[2018-07-25] MEDS: ZALEPLON 5 MG CAPSULE PO SCH (21:14)
[2018-07-25 21:58] LABS: Hematocrit 33.4 VOL% (42.0-52.0)
[2018-07-25 21:59] LABS: Hemoglobin 10.6 GM/DL (14.0-18.0)
[2018-07-26] MEDS: HYDROmorphone 2 MG/1 ML VIAL IV PRN ×7 (01:35→22:35)
[2018-07-26] MEDS: ALBUTEROL/IPRATROPIUM 3 ML NEB RESP TX SCH ×5 (03:31→23:15)
[2018-07-26 05:41] LABS: Basophils % 0.2 % (0.0-0.8); Eosinophils # 0.4 10*3/uL (0.0-0.87); Hemoglobin 10.2 GM/DL (14.0-18.0); Immature Granulocytes Absolute 0.13 #; Lymphocytes # 1.8 10*3/uL (1.4-4.0); Mean Corpuscular HGB Conc 30.9 GM/DL (32-36); Mean Corpuscular Hemoglobin 29 PG (27-34); Mean Corpuscular Volume 92.2 FL (87-102); Mean Platelet Volume 11.8 FL (9.6-12.0); Monocytes # 0.8 10*3/uL (0.11-0.8); Monocytes % 5.8 % (1.7-12.7); NRBC # 0.02 10*3/uL; Neutrophils # 10.3 10*3/uL (1.4-7.4); Platelet Count 167 T/CUMM (130-400); Red Blood Count 3.58 MC/CUMM (3.8-5.5); Red Cell Distribution Width 14.1 % (9.3-17.3); White Blood Count 13.4 T/CUMM (4-12)
[2018-07-26] MEDS: LEVOTHYROXINE 50 MCG TABLET PO SCH (06:08)
[2018-07-26 06:23] LABS: Albumin 2.7 G/DL (3.4-5.0); Bilirubin,Total 0.7 MG/DL (0.2-1.0); Calcium 8.5 MG/DL (8.5-10.1); Osmolality,Calculated 276.8 MOS/KG (273-304); Potassium 4.2 MMOL/L (3.5-5.1); Total Protein 6.3 G/DL (6.4-8.3)
[2018-07-26] MEDS: INSULIN REGULAR 100 UNIT/ML SUBCUT SCH ×4 (08:41→21:04)
[2018-07-26] MEDS: glipiZIDE 5 MG TABLET PO SCH (08:42)
[2018-07-26] MEDS: AMIODARONE 200 MG TABLET PO SCH (08:42)
[2018-07-26] MEDS: metFORMIN 500 MG TABLET PO SCH ×2 (08:42→21:07)
[2018-07-26] MEDS: ESCITALOPRAM 10 MG TABLET PO SCH (08:43)
[2018-07-26] MEDS: CLOPIDOGREL 75 MG TABLET PO SCH (08:43)
[2018-07-26] MEDS: FERROUS GLUCONATE 240 MG TABLET PO SCH (08:43)
[2018-07-26] MEDS: LOSARTAN 25 MG TABLET PO SCH (08:44)
[2018-07-26] MEDS: CHOLECALCIFEROL 5,000 UNIT TABLET PO SCH (08:44)
[2018-07-26] MEDS: MAGNESIUM CHLORIDE 64 MG TABLET PO SCH ×2 (08:44→21:02)
[2018-07-26] MEDS: DOCUSATE SODIUM 100 MG CAPSULE PO SCH ×2 (08:44→21:02)
[2018-07-26] MEDS: MULTIVITAMIN (CENTRUM) TABLET PO SCH (08:44)
[2018-07-26] MEDS: GABAPENTIN 300 MG CAPSULE PO SCH ×3 (08:44→21:04)
[2018-07-26] MEDS: MORPHINE ER 30 MG TABLET PO SCH ×2 (08:44→21:02)
[2018-07-26] MEDS: PANTOPRAZOLE 40 MG TABLET PO SCH (08:45)
[2018-07-26] MEDS: MAGNESIUM HYDROXIDE SUSP 30 ML UDCUP PO PRN ×3 (08:47→21:38)
[2018-07-26] MEDS: BENZONATATE 100 MG CAPSULE PO PRN ×2 (10:51→22:35)
[2018-07-26] MEDS: ZALEPLON 5 MG CAPSULE PO SCH (21:02)
[2018-07-26] MEDS: ATORVASTATIN 20 MG TABLET PO SCH (21:02)
[2018-07-27] MEDS: HYDROmorphone 2 MG/1 ML VIAL IV PRN ×6 (01:51→21:09)
[2018-07-27] MEDS: ALBUTEROL/IPRATROPIUM 3 ML NEB RESP TX SCH ×7 (03:42→23:58)
[2018-07-27 05:39] LABS: Basophils % 0.4 % (0.0-0.8); Eosinophils # 0.6 10*3/uL (0.0-0.87); Hematocrit 32.7 VOL% (42.0-52.0); Hemoglobin 10.2 GM/DL (14.0-18.0); Immature Granulocytes % 0.8 %; Immature Granulocytes Absolute 0.08 #; Lymphocytes # 1.5 10*3/uL (1.4-4.0); Lymphocytes % 15.1 % (21.2-54.2); Mean Corpuscular HGB Conc 31.2 GM/DL (32-36); Mean Corpuscular Hemoglobin 29 PG (27-34); Mean Corpuscular Volume 92.1 FL (87-102); Mean Platelet Volume 11.8 FL (9.6-12.0); Monocytes # 0.6 10*3/uL (0.11-0.8); Monocytes % 6.1 % (1.7-12.7); Neutrophils % 71.6 % (38.7-73.9); Platelet Count 163 T/CUMM (130-400); Red Blood Count 3.55 MC/CUMM (3.8-5.5); White Blood Count 9.8 T/CUMM (4-12)
[2018-07-27] MEDS: LEVOTHYROXINE 50 MCG TABLET PO SCH (06:38)
[2018-07-27] MEDS: ESCITALOPRAM 10 MG TABLET PO SCH (08:19)
[2018-07-27] MEDS: MAGNESIUM CHLORIDE 64 MG TABLET PO SCH ×2 (08:19→20:12)
[2018-07-27] MEDS: MORPHINE ER 30 MG TABLET PO SCH ×2 (08:20→20:13)
[2018-07-27] MEDS: glipiZIDE 5 MG TABLET PO SCH (08:20)
[2018-07-27] MEDS: FERROUS GLUCONATE 240 MG TABLET PO SCH (08:20)
[2018-07-27] MEDS: PANTOPRAZOLE 40 MG TABLET PO SCH (08:20)
[2018-07-27] MEDS: CLOPIDOGREL 75 MG TABLET PO SCH (08:20)
[2018-07-27] MEDS: DOCUSATE SODIUM 100 MG CAPSULE PO SCH ×2 (08:20→20:12)
[2018-07-27] MEDS: CHOLECALCIFEROL 5,000 UNIT TABLET PO SCH (08:20)
[2018-07-27] MEDS: LOSARTAN 25 MG TABLET PO SCH (08:20)
[2018-07-27] MEDS: metFORMIN 500 MG TABLET PO SCH ×2 (08:21→20:12)
[2018-07-27] MEDS: INSULIN REGULAR 100 UNIT/ML SUBCUT SCH ×4 (08:21→20:17)
[2018-07-27] MEDS: MULTIVITAMIN (CENTRUM) TABLET PO SCH (08:21)
[2018-07-27] MEDS: GABAPENTIN 300 MG CAPSULE PO SCH ×3 (08:21→20:12)
[2018-07-27] MEDS: AMIODARONE 200 MG TABLET PO SCH (08:21)
[2018-07-27] MEDS: APIXABAN 2.5 MG TABLET PO SCH ×2 (08:22→20:12)
[2018-07-27] MEDS: ZALEPLON 5 MG CAPSULE PO SCH (20:12)
[2018-07-27] MEDS: ATORVASTATIN 20 MG TABLET PO SCH (20:12)
[2018-07-27] MEDS: BENZONATATE 100 MG CAPSULE PO PRN (23:36)
[2018-07-28] MEDS: HYDROmorphone 2 MG/1 ML VIAL IV PRN ×8 (00:16→22:46)
[2018-07-28] MEDS: ALBUTEROL/IPRATROPIUM 3 ML NEB RESP TX SCH ×6 (03:45→23:54)
[2018-07-28 05:38] LABS: Basophils % 0.2 % (0.0-0.8); Eosinophils # 0.6 10*3/uL (0.0-0.87); Eosinophils % 5.7 % (0.00-10.9); Hematocrit 36.6 VOL% (42.0-52.0); Hemoglobin 11.3 GM/DL (14.0-18.0); Immature Granulocytes % 1.1 %; Immature Granulocytes Absolute 0.11 #; Lymphocytes # 1.6 10*3/uL (1.4-4.0); Lymphocytes % 16.3 % (21.2-54.2); Mean Corpuscular HGB Conc 30.9 GM/DL (32-36); Mean Corpuscular Hemoglobin 29 PG (27-34); Mean Corpuscular Volume 94.1 FL (87-102); Mean Platelet Volume 11.6 FL (9.6-12.0); Monocytes # 0.6 10*3/uL (0.11-0.8); Monocytes % 6.1 % (1.7-12.7); Neutrophils % 70.6 % (38.7-73.9); Platelet Count 197 T/CUMM (130-400); Red Blood Count 3.89 MC/CUMM (3.8-5.5); White Blood Count 9.9 T/CUMM (4-12)
[2018-07-28 05:58] LABS: Calcium 9.2 MG/DL (8.5-10.1); Osmolality,Calculated 274.8 MOS/KG (273-304); Potassium 4.1 MMOL/L (3.5-5.1)
[2018-07-28] MEDS: LEVOTHYROXINE 50 MCG TABLET PO SCH (07:11)
[2018-07-28] MEDS: DOCUSATE SODIUM 100 MG CAPSULE PO SCH ×2 (09:35→21:21)
[2018-07-28] MEDS: FERROUS GLUCONATE 240 MG TABLET PO SCH (09:35)
[2018-07-28] MEDS: BENZONATATE 100 MG CAPSULE PO PRN ×2 (09:35→22:44)
[2018-07-28] MEDS: metFORMIN 500 MG TABLET PO SCH ×2 (09:35→21:20)
[2018-07-28] MEDS: AMIODARONE 200 MG TABLET PO SCH (09:36)
[2018-07-28] MEDS: LOSARTAN 25 MG TABLET PO SCH (09:36)
[2018-07-28] MEDS: ESCITALOPRAM 10 MG TABLET PO SCH (09:36)
[2018-07-28] MEDS: MULTIVITAMIN (CENTRUM) TABLET PO SCH (09:37)
[2018-07-28] MEDS: PANTOPRAZOLE 40 MG TABLET PO SCH (09:37)
[2018-07-28] MEDS: MAGNESIUM CHLORIDE 64 MG TABLET PO SCH ×2 (09:37→21:20)
[2018-07-28] MEDS: glipiZIDE 5 MG TABLET PO SCH (09:37)
[2018-07-28] MEDS: CHOLECALCIFEROL 5,000 UNIT TABLET PO SCH (09:37)
[2018-07-28] MEDS: CLOPIDOGREL 75 MG TABLET PO SCH (09:37)
[2018-07-28] MEDS: GABAPENTIN 300 MG CAPSULE PO SCH ×3 (09:37→22:44)
[2018-07-28] MEDS: INSULIN REGULAR 100 UNIT/ML SUBCUT SCH ×4 (09:43→22:45)
[2018-07-28] MEDS: APIXABAN 2.5 MG TABLET PO SCH ×2 (09:45→21:20)
[2018-07-28] MEDS: MORPHINE ER 30 MG TABLET PO SCH ×2 (09:45→21:21)
[2018-07-28] MEDS ORDERED: LIDOCAINE 2% TOP JELLY 20 ML VIAL INTRAURETH ONE (11:14)
[2018-07-28] MEDS: TAMSULOSIN 0.4 MG CAPSULE PO SCH (16:02)
[2018-07-28] MEDS: ZALEPLON 5 MG CAPSULE PO SCH (21:20)
[2018-07-28] MEDS: diphenhydrAMINE CAP 25 MG CAPSULE PO PRN (21:21)
[2018-07-28] MEDS: ATORVASTATIN 20 MG TABLET PO SCH (22:44)
[2018-07-29] MEDS: ALBUTEROL/IPRATROPIUM 3 ML NEB RESP TX SCH ×3 (03:36→11:10)
[2018-07-29] MEDS: HYDROmorphone 2 MG/1 ML VIAL IV PRN ×3 (03:41→11:26)
[2018-07-29] MEDS: LEVOTHYROXINE 50 MCG TABLET PO SCH (06:29)
[2018-07-29] MEDS: FERROUS GLUCONATE 240 MG TABLET PO SCH (09:30)
[2018-07-29] MEDS: MAGNESIUM CHLORIDE 64 MG TABLET PO SCH (09:30)
[2018-07-29] MEDS: glipiZIDE 5 MG TABLET PO SCH (09:30)
[2018-07-29] MEDS: LOSARTAN 25 MG TABLET PO SCH (09:30)
[2018-07-29] MEDS: CHOLECALCIFEROL 5,000 UNIT TABLET PO SCH (09:30)
[2018-07-29] MEDS: DOCUSATE SODIUM 100 MG CAPSULE PO SCH (09:30)
[2018-07-29] MEDS: ESCITALOPRAM 10 MG TABLET PO SCH (09:31)
[2018-07-29] MEDS: MULTIVITAMIN (CENTRUM) TABLET PO SCH (09:31)
[2018-07-29] MEDS: AMIODARONE 200 MG TABLET PO SCH (09:31)
[2018-07-29] MEDS: CLOPIDOGREL 75 MG TABLET PO SCH (09:32)
[2018-07-29] MEDS: metFORMIN 500 MG TABLET PO SCH (09:32)
[2018-07-29] MEDS: MORPHINE ER 30 MG TABLET PO SCH (09:32)
[2018-07-29] MEDS: PANTOPRAZOLE 40 MG TABLET PO SCH (09:32)
[2018-07-29] MEDS: GABAPENTIN 300 MG CAPSULE PO SCH (09:33)
[2018-07-29] MEDS: APIXABAN 2.5 MG TABLET PO SCH (09:33)
[2018-07-29] MEDS: INSULIN REGULAR 100 UNIT/ML SUBCUT SCH ×2 (09:34→14:39)
[2018-07-29] MEDS: TAMSULOSIN 0.4 MG CAPSULE PO SCH (09:47)
[2018-07-29 11:20] VITALS: BP 130/77
== END 2018-07-29 16:00 | DRG 470 ==
LOC: N.ED 01:56 → N.EDINP 03:19 → N.3E 03:46
PROVIDERS: ADMIT Family Medicine; ATTEND Family Medicine

== ENCOUNTER 2019-04-05 07:57 | Inpatient (IN) ==
[2019-04-05] MEDS ORDERED: ALBUTEROL NEB SOLN 5 MG/ML 20 ML/BOTTLE CONT NEB STA (08:29)
[2019-04-05] MEDS ORDERED: methylPREDNISolone SOD SUC 125 MG/2 ML VIAL IV STA (08:41)
[2019-04-05] MEDS ORDERED: LEVOFLOXACIN INJ 500 MG in PREMIX 1 EACH IV STA (09:03)
[2019-04-05 09:15] LABS: Basophils % 0.3 % (0.0-0.8); Eosinophils # 0.1 10*3/uL (0.0-0.87); Eosinophils % 0.4 % (0.00-10.9); Hematocrit 40.4 VOL% (42.0-52.0); Hemoglobin 12.4 GM/DL (14.0-18.0); Immature Granulocytes % 0.6 %; Immature Granulocytes Absolute 0.07 #; Lymphocytes # 0.7 10*3/uL (1.4-4.0); Lymphocytes % 5.4 % (21.2-54.2); Mean Corpuscular HGB Conc 30.7 GM/DL (32-36); Mean Corpuscular Volume 91.4 FL (87-102); Mean Platelet Volume 13.1 FL (9.6-12.0); Monocytes % 4.9 % (1.7-12.7); Neutrophils % 88.4 % (38.7-73.9); Platelet Count 185 T/CUMM (130-400); Red Blood Count 4.42 MC/CUMM (3.8-5.5); Red Cell Distribution Width 13.8 % (9.3-17.3); White Blood Count 12.5 T/CUMM (4-12)
[2019-04-05 09:41] LABS: Alanine Aminotransferase 27 U/L (16-61); Albumin 3.6 G/DL (3.4-5.0); Alkaline Phosphatase 152 U/L (45-117); Aspartate Amino Transferase 29 U/L (0-37); Blood Urea Nitrogen 39 MG/DL (7-18); Calcium 9.4 MG/DL (8.5-10.1); Glucose 234 MG/DL (74-106); Osmolality,Calculated 273.1 MOS/KG (273-304); Total Protein 8.3 G/DL (6.4-8.3)
[2019-04-05] MEDS ORDERED: FUROSEMIDE 40 MG/4 ML VIAL IV STA (09:43)
[2019-04-05] MEDS ORDERED: DEXTROSE 50% 25 GM/50 ML VIAL IV PRN (10:28)
[2019-04-05] MEDS ORDERED: ONDANSETRON 4 MG/2 ML VIAL IV PRN (10:28)
[2019-04-05] MEDS ORDERED: GLUCAGON 1 MG VIAL IM PRN (10:28)
[2019-04-05] MEDS ORDERED: ACETAMINOPHEN 325 MG TABLET PO PRN (10:28)
[2019-04-05] MEDS ORDERED: ALBUTEROL 2.5 MG/3 ML NEB RESP TX PRN (10:28)
[2019-04-05] MEDS ORDERED: PNEUMOCOCCAL VACCINE (13 VALENT) 0.5 ML SYRINGE IM ONE (12:51)
[2019-04-05] MEDS ORDERED: NON-FORMULARY MEDICATION (Albuterol Sulfate [Proair Hfa] 2 PUFF) INH PRN (13:36)
[2019-04-05] MEDS ORDERED: NITROGLYCERIN SL 0.4 MG TABLET SL PRN (13:36)
[2019-04-05] MEDS ORDERED: ZALEPLON 5 MG CAPSULE PO PRN (14:00)
[2019-04-05] MEDS ORDERED: MAGNESIUM SULF RIDER 4 GM in PREMIX 1 EACH IV PRN (14:21)
[2019-04-05] MEDS ORDERED: POTASSIUM CHLORIDE 20 MEQ TABLET PO PRN (14:21)
[2019-04-05] MEDS ORDERED: MAGNESIUM SULF RIDER 2 GM in PREMIX 1 EACH IV PRN (14:21)
[2019-04-05] MEDS ORDERED: ALBUTEROL/IPRATROPIUM 3 ML NEB RESP TX PRN (14:23)
[2019-04-05] MEDS: GABAPENTIN 300 MG CAPSULE PO SCH ×2 (15:50→21:22)
[2019-04-05] MEDS: ALBUTEROL/IPRATROPIUM 3 ML NEB RESP TX SCH ×3 (16:30→23:08)
[2019-04-05] MEDS: INSULIN LISPRO 100 UNIT/ML SUBCUT SCH ×2 (16:54→21:22)
[2019-04-05] MEDS ORDERED: metFORMIN 500 MG TABLET PO SCH (21:00)
[2019-04-05] MEDS: PHENOL 1.4% THROAT SPRAY 177 ML BOTTLE PO PRN (21:20)
[2019-04-05] MEDS: ATORVASTATIN 20 MG TABLET PO SCH (21:20)
[2019-04-05] MEDS: MORPHINE ER 30 MG TABLET PO SCH (21:21)
[2019-04-05] MEDS: TAMSULOSIN 0.4 MG CAPSULE PO SCH (21:21)
[2019-04-05] MEDS: MAGNESIUM CHLORIDE 64 MG TABLET PO SCH (21:21)
[2019-04-05] MEDS: DOCUSATE SODIUM 100 MG CAPSULE PO SCH (21:21)
[2019-04-05] MEDS: UMECLIDINIUM VILANTEROL INH SCH (22:49)
[2019-04-06] MEDS: ALBUTEROL/IPRATROPIUM 3 ML NEB RESP TX SCH ×6 (03:32→23:58)
[2019-04-06 05:00] LABS: Basophils % 0.1 % (0.0-0.8); Eosinophils % 0.3 % (0.00-10.9); Hematocrit 35.3 VOL% (42.0-52.0); Hemoglobin 10.8 GM/DL (14.0-18.0); Immature Granulocytes % 0.7 %; Immature Granulocytes Absolute 0.07 #; Lymphocytes # 0.5 10*3/uL (1.4-4.0); Lymphocytes % 4.8 % (21.2-54.2); Mean Corpuscular HGB Conc 30.6 GM/DL (32-36); Mean Corpuscular Volume 90.1 FL (87-102); Mean Platelet Volume 12.8 FL (9.6-12.0); Neutrophils % 91.1 % (38.7-73.9); Red Blood Count 3.92 MC/CUMM (3.8-5.5); Red Cell Distribution Width 13.6 % (9.3-17.3)
[2019-04-06 05:06] LABS: Platelet Count 143 T/CUMM (130-400)
[2019-04-06 05:21] LABS: Lymphocytes 5 % (20-55); Platelet Estimate Normal; Polychromasia Few; Segmented Neutrophils 94 % (50-85); Total Cells Counted 100
[2019-04-06 05:45] LABS: Calcium 8.7 MG/DL (8.5-10.1); Osmolality,Calculated 270.5 MOS/KG (273-304); Thyroid Stimulating Hormone 1.17 uIU/ml (0.358-3.74)
[2019-04-06] MEDS: LEVOTHYROXINE 75 MCG TABLET PO SCH (06:14)
[2019-04-06] MEDS: DOCUSATE SODIUM 100 MG CAPSULE PO SCH ×2 (09:25→22:19)
[2019-04-06] MEDS: LOSARTAN 25 MG TABLET PO SCH (09:25)
[2019-04-06] MEDS: MAGNESIUM CHLORIDE 64 MG TABLET PO SCH ×2 (09:25→22:14)
[2019-04-06] MEDS: glipiZIDE 5 MG TABLET PO SCH (09:26)
[2019-04-06] MEDS: AMIODARONE 200 MG TABLET PO SCH (09:26)
[2019-04-06] MEDS: PANTOPRAZOLE 40 MG TABLET PO SCH (09:27)
[2019-04-06] MEDS: ASPIRIN EC 325 MG TABLET PO SCH (09:27)
[2019-04-06] MEDS: GABAPENTIN 300 MG CAPSULE PO SCH ×3 (09:27→22:12)
[2019-04-06] MEDS: MORPHINE ER 30 MG TABLET PO SCH ×2 (09:27→22:12)
[2019-04-06] MEDS: TAMSULOSIN 0.4 MG CAPSULE PO SCH ×2 (09:32→22:15)
[2019-04-06] MEDS: INSULIN LISPRO 100 UNIT/ML SUBCUT SCH ×4 (09:32→22:15)
[2019-04-06] MEDS: LEVOFLOXACIN INJ 250 MG in PREMIX 1 EACH IV SCH (09:42)
[2019-04-06] MEDS: MULTIVITAMIN (CENTRUM) TABLET PO SCH (09:48)
[2019-04-06] MEDS ORDERED: Umeclidinium-Vilanterol [Anoro Ellipta] 1 inh INH SCH (15:30)
[2019-04-06] MEDS ORDERED: CALCIUM CARBONATE CHEW 500 MG TABLET PO PRN (18:24)
[2019-04-06] MEDS ORDERED: FAMOTIDINE 20 MG TABLET PO ONE (21:00)
[2019-04-06] MEDS: ATORVASTATIN 20 MG TABLET PO SCH (22:14)
[2019-04-07] MEDS: ALBUTEROL/IPRATROPIUM 3 ML NEB RESP TX SCH ×6 (03:50→23:45)
[2019-04-07] MEDS: GABAPENTIN 300 MG CAPSULE PO SCH ×3 (09:41→21:43)
[2019-04-07] MEDS: MULTIVITAMIN (CENTRUM) TABLET PO SCH (09:42)
[2019-04-07] MEDS: LEVOTHYROXINE 75 MCG TABLET PO SCH (09:42)
[2019-04-07] MEDS: DOCUSATE SODIUM 100 MG CAPSULE PO SCH ×2 (09:42→21:43)
[2019-04-07] MEDS: PANTOPRAZOLE 40 MG TABLET PO SCH (09:42)
[2019-04-07] MEDS: MAGNESIUM CHLORIDE 64 MG TABLET PO SCH ×2 (09:42→21:43)
[2019-04-07] MEDS: MORPHINE ER 30 MG TABLET PO SCH ×2 (09:42→21:42)
[2019-04-07] MEDS: LOSARTAN 25 MG TABLET PO SCH (09:42)
[2019-04-07] MEDS: ASPIRIN EC 325 MG TABLET PO SCH (09:42)
[2019-04-07] MEDS: TAMSULOSIN 0.4 MG CAPSULE PO SCH ×2 (09:43→21:42)
[2019-04-07] MEDS: INSULIN LISPRO 100 UNIT/ML SUBCUT SCH ×4 (09:45→21:43)
[2019-04-07] MEDS: LEVOFLOXACIN INJ 250 MG in PREMIX 1 EACH IV SCH (09:52)
[2019-04-07] MEDS: AMIODARONE 200 MG TABLET PO SCH (09:52)
[2019-04-07] MEDS: glipiZIDE 5 MG TABLET PO SCH (09:52)
[2019-04-07] MEDS: methylPREDNISolone SOD SUC 40 MG/1 ML VIAL IV SCH ×2 (12:53→23:42)
[2019-04-07 14:22] LABS: Basophils % 0.1 % (0.0-0.8); Eosinophils % 0.3 % (0.00-10.9); Hematocrit 37.4 VOL% (42.0-52.0); Hemoglobin 11.8 GM/DL (14.0-18.0); Immature Granulocytes % 0.6 %; Immature Granulocytes Absolute 0.08 #; Lymphocytes # 0.8 10*3/uL (1.4-4.0); Lymphocytes % 5.4 % (21.2-54.2); Mean Corpuscular HGB Conc 31.6 GM/DL (32-36); Mean Corpuscular Volume 89.9 FL (87-102); Mean Platelet Volume 11.9 FL (9.6-12.0); Monocytes % 10.6 % (1.7-12.7); NRBC # 0.03 10*3/uL; Red Blood Count 4.16 MC/CUMM (3.8-5.5); Red Cell Distribution Width 13.7 % (9.3-17.3)
[2019-04-07 14:25] LABS: Platelet Count 285 T/CUMM (130-400); White Blood Count 13.8 T/CUMM (4-12)
[2019-04-07 14:34] LABS: Calcium 9.6 MG/DL (8.5-10.1); Osmolality,Calculated 271.1 MOS/KG (273-304)
[2019-04-07] MEDS: UMECLIDINIUM VILANTEROL INH SCH (15:32)
[2019-04-07] MEDS ORDERED: diphenhydrAMINE CAP 25 MG CAPSULE PO PRN (20:47)
[2019-04-07] MEDS: ATORVASTATIN 20 MG TABLET PO SCH (21:42)
[2019-04-08] MEDS: ALBUTEROL/IPRATROPIUM 3 ML NEB RESP TX SCH ×5 (02:55→19:42)
[2019-04-08 05:45] LABS: Basophils % 0.1 % (0.0-0.8); Hematocrit 36.7 VOL% (42.0-52.0); Hemoglobin 11.7 GM/DL (14.0-18.0); Immature Granulocytes % 0.8 %; Immature Granulocytes Absolute 0.11 #; Lymphocytes # 0.3 10*3/uL (1.4-4.0); Lymphocytes % 2.5 % (21.2-54.2); Mean Corpuscular HGB Conc 31.9 GM/DL (32-36); Mean Corpuscular Volume 90.2 FL (87-102); Mean Platelet Volume 12.7 FL (9.6-12.0); Monocytes % 3.9 % (1.7-12.7); NRBC # 0.02 10*3/uL; Neutrophils % 92.7 % (38.7-73.9); Platelet Count 251 T/CUMM (130-400); Red Blood Count 4.07 MC/CUMM (3.8-5.5); Red Cell Distribution Width 13.8 % (9.3-17.3); White Blood Count 13.1 T/CUMM (4-12)
[2019-04-08 05:55] LABS: Calcium 9.8 MG/DL (8.5-10.1); Osmolality,Calculated 280.8 MOS/KG (273-304)
[2019-04-08 06:08] LABS: Lymphocytes 2 % (20-55); Segmented Neutrophils 95 % (50-85); Total Cells Counted 100
[2019-04-08 06:09] LABS: Platelet Estimate Adequate
[2019-04-08] MEDS: LEVOTHYROXINE 75 MCG TABLET PO SCH (06:56)
[2019-04-08] MEDS: glipiZIDE 5 MG TABLET PO SCH (08:51)
[2019-04-08] MEDS: GABAPENTIN 300 MG CAPSULE PO SCH ×3 (08:51→20:54)
[2019-04-08] MEDS: MULTIVITAMIN (CENTRUM) TABLET PO SCH (08:51)
[2019-04-08] MEDS: ASPIRIN EC 325 MG TABLET PO SCH (08:51)
[2019-04-08] MEDS: MORPHINE ER 30 MG TABLET PO SCH ×2 (08:52→20:54)
[2019-04-08] MEDS: TAMSULOSIN 0.4 MG CAPSULE PO SCH ×2 (08:52→20:55)
[2019-04-08] MEDS: PANTOPRAZOLE 40 MG TABLET PO SCH (08:52)
[2019-04-08] MEDS: DOCUSATE SODIUM 100 MG CAPSULE PO SCH ×2 (08:53→20:55)
[2019-04-08] MEDS: MAGNESIUM CHLORIDE 64 MG TABLET PO SCH ×2 (08:53→20:55)
[2019-04-08] MEDS: AMIODARONE 200 MG TABLET PO SCH (08:53)
[2019-04-08] MEDS: LOSARTAN 25 MG TABLET PO SCH (08:54)
[2019-04-08] MEDS: INSULIN LISPRO 100 UNIT/ML SUBCUT SCH ×4 (08:54→20:56)
[2019-04-08] MEDS: LEVOFLOXACIN INJ 250 MG in PREMIX 1 EACH IV SCH (08:55)
[2019-04-08] MEDS: methylPREDNISolone SOD SUC 40 MG/1 ML VIAL IV SCH ×2 (12:53→23:43)
[2019-04-08] MEDS: UMECLIDINIUM VILANTEROL INH SCH (12:53)
[2019-04-08] MEDS: ATORVASTATIN 20 MG TABLET PO SCH (20:55)
[2019-04-09] MEDS: ALBUTEROL/IPRATROPIUM 3 ML NEB RESP TX SCH ×6 (00:16→20:06)
[2019-04-09] MEDS: LEVOTHYROXINE 75 MCG TABLET PO SCH (06:12)
[2019-04-09] MEDS: MAGNESIUM CHLORIDE 64 MG TABLET PO SCH ×2 (08:48→20:37)
[2019-04-09] MEDS: DOCUSATE SODIUM 100 MG CAPSULE PO SCH ×2 (08:49→20:37)
[2019-04-09] MEDS: MULTIVITAMIN (CENTRUM) TABLET PO SCH (08:49)
[2019-04-09] MEDS: glipiZIDE 5 MG TABLET PO SCH (08:49)
[2019-04-09] MEDS: BENZONATATE 100 MG CAPSULE PO PRN ×3 (08:49→23:00)
[2019-04-09] MEDS: PANTOPRAZOLE 40 MG TABLET PO SCH (08:50)
[2019-04-09] MEDS: GABAPENTIN 300 MG CAPSULE PO SCH ×3 (08:50→20:37)
[2019-04-09] MEDS: AMIODARONE 200 MG TABLET PO SCH (08:50)
[2019-04-09] MEDS: LOSARTAN 25 MG TABLET PO SCH (08:50)
[2019-04-09] MEDS: TAMSULOSIN 0.4 MG CAPSULE PO SCH ×2 (08:50→20:37)
[2019-04-09] MEDS: MORPHINE ER 30 MG TABLET PO SCH ×2 (08:50→20:38)
[2019-04-09] MEDS: INSULIN LISPRO 100 UNIT/ML SUBCUT SCH ×4 (08:55→20:44)
[2019-04-09] MEDS: LEVOFLOXACIN INJ 250 MG in PREMIX 1 EACH IV SCH (08:57)
[2019-04-09] MEDS: FUROSEMIDE 40 MG/4 ML VIAL IV SCH (09:03)
[2019-04-09] MEDS: ASPIRIN EC 325 MG TABLET PO SCH (09:04)
[2019-04-09 09:21] LABS: Calcium 9.8 MG/DL (8.5-10.1); Osmolality,Calculated 278.9 MOS/KG (273-304)
[2019-04-09] MEDS: methylPREDNISolone SOD SUC 40 MG/1 ML VIAL IV SCH (11:56)
[2019-04-09] MEDS: UMECLIDINIUM VILANTEROL INH SCH (15:02)
[2019-04-09] MEDS ORDERED: SODIUM POLYSTYRENE SULFATE 15 GM/60 ML BOTTLE PO STA (16:09)
[2019-04-09] MEDS: ATORVASTATIN 20 MG TABLET PO SCH (20:37)
[2019-04-10] MEDS: ALBUTEROL/IPRATROPIUM 3 ML NEB RESP TX SCH ×7 (00:20→23:39)
[2019-04-10] MEDS: methylPREDNISolone SOD SUC 40 MG/1 ML VIAL IV SCH ×2 (00:25→12:49)
[2019-04-10 05:14] LABS: Calcium 9.5 MG/DL (8.5-10.1); Osmolality,Calculated 277.7 MOS/KG (273-304)
[2019-04-10] MEDS ORDERED: GLUCAGON 1 MG VIAL IM PRN (08:15)
[2019-04-10] MEDS ORDERED: DEXTROSE 50% 25 GM/50 ML VIAL IV PRN (08:15)
[2019-04-10] MEDS: LEVOFLOXACIN INJ 250 MG in PREMIX 1 EACH IV SCH (10:04)
[2019-04-10] MEDS: DOCUSATE SODIUM 100 MG CAPSULE PO SCH ×2 (10:07→20:19)
[2019-04-10] MEDS: GABAPENTIN 300 MG CAPSULE PO SCH ×3 (10:08→20:19)
[2019-04-10] MEDS: MULTIVITAMIN (CENTRUM) TABLET PO SCH (10:08)
[2019-04-10] MEDS: MAGNESIUM CHLORIDE 64 MG TABLET PO SCH ×2 (10:08→20:20)
[2019-04-10] MEDS: LOSARTAN 25 MG TABLET PO SCH (10:08)
[2019-04-10] MEDS: ASPIRIN EC 325 MG TABLET PO SCH (10:08)
[2019-04-10] MEDS: AMIODARONE 200 MG TABLET PO SCH (10:08)
[2019-04-10] MEDS: TAMSULOSIN 0.4 MG CAPSULE PO SCH ×2 (10:09→20:19)
[2019-04-10] MEDS: PANTOPRAZOLE 40 MG TABLET PO SCH (10:09)
[2019-04-10] MEDS: glipiZIDE 5 MG TABLET PO SCH (10:09)
[2019-04-10] MEDS: LEVOTHYROXINE 75 MCG TABLET PO SCH (10:10)
[2019-04-10] MEDS: FUROSEMIDE 40 MG/4 ML VIAL IV SCH (10:10)
[2019-04-10] MEDS: MORPHINE ER 30 MG TABLET PO SCH ×2 (10:10→21:14)
[2019-04-10] MEDS: INSULIN LISPRO 100 UNIT/ML SUBCUT SCH ×4 (10:11→20:20)
[2019-04-10] MEDS: UMECLIDINIUM VILANTEROL INH SCH (16:26)
[2019-04-10] MEDS: ATORVASTATIN 20 MG TABLET PO SCH (20:19)
[2019-04-11] MEDS: methylPREDNISolone SOD SUC 40 MG/1 ML VIAL IV SCH ×2 (00:10→12:07)
[2019-04-11] MEDS: ALBUTEROL/IPRATROPIUM 3 ML NEB RESP TX SCH ×5 (03:04→19:50)
[2019-04-11] MEDS: LEVOTHYROXINE 75 MCG TABLET PO SCH (06:01)
[2019-04-11] MEDS: LOSARTAN 25 MG TABLET PO SCH (08:52)
[2019-04-11] MEDS: glipiZIDE 5 MG TABLET PO SCH (08:53)
[2019-04-11] MEDS: MAGNESIUM CHLORIDE 64 MG TABLET PO SCH ×2 (08:54→20:45)
[2019-04-11] MEDS: TAMSULOSIN 0.4 MG CAPSULE PO SCH ×2 (08:54→20:45)
[2019-04-11] MEDS: MORPHINE ER 30 MG TABLET PO SCH ×2 (08:54→20:45)
[2019-04-11] MEDS: GABAPENTIN 300 MG CAPSULE PO SCH ×3 (08:54→20:45)
[2019-04-11] MEDS: MULTIVITAMIN (CENTRUM) TABLET PO SCH (08:54)
[2019-04-11] MEDS: AMIODARONE 200 MG TABLET PO SCH (08:54)
[2019-04-11] MEDS: DOCUSATE SODIUM 100 MG CAPSULE PO SCH ×2 (08:54→20:45)
[2019-04-11] MEDS: ASPIRIN EC 325 MG TABLET PO SCH (08:54)
[2019-04-11] MEDS: PANTOPRAZOLE 40 MG TABLET PO SCH (08:55)
[2019-04-11] MEDS: INSULIN LISPRO 100 UNIT/ML SUBCUT SCH ×4 (08:55→21:47)
[2019-04-11] MEDS: FUROSEMIDE 40 MG/4 ML VIAL IV SCH (08:55)
[2019-04-11] MEDS: LEVOFLOXACIN INJ 250 MG in PREMIX 1 EACH IV SCH (08:56)
[2019-04-11] MEDS: MAGNESIUM HYDROXIDE SUSP 30 ML UDCUP PO PRN ×2 (12:06→20:45)
[2019-04-11] MEDS: BENZONATATE 100 MG CAPSULE PO PRN (12:06)
[2019-04-11] MEDS: UMECLIDINIUM VILANTEROL INH SCH (13:34)
[2019-04-11] MEDS: ATORVASTATIN 20 MG TABLET PO SCH (20:45)
[2019-04-12] MEDS: ALBUTEROL/IPRATROPIUM 3 ML NEB RESP TX SCH ×7 (00:12→23:21)
[2019-04-12] MEDS: methylPREDNISolone SOD SUC 40 MG/1 ML VIAL IV SCH ×2 (00:16→12:51)
[2019-04-12] MEDS: BENZONATATE 100 MG CAPSULE PO PRN (00:16)
[2019-04-12] MEDS: LEVOTHYROXINE 75 MCG TABLET PO SCH (07:13)
[2019-04-12] MEDS: DOCUSATE SODIUM 100 MG CAPSULE PO SCH ×2 (09:29→20:25)
[2019-04-12] MEDS: PANTOPRAZOLE 40 MG TABLET PO SCH (09:30)
[2019-04-12] MEDS: GABAPENTIN 300 MG CAPSULE PO SCH ×3 (09:30→20:25)
[2019-04-12] MEDS: MAGNESIUM CHLORIDE 64 MG TABLET PO SCH ×2 (09:30→20:25)
[2019-04-12] MEDS: MULTIVITAMIN (CENTRUM) TABLET PO SCH (09:30)
[2019-04-12] MEDS: LOSARTAN 25 MG TABLET PO SCH (09:30)
[2019-04-12] MEDS: MORPHINE ER 30 MG TABLET PO SCH ×2 (09:30→20:25)
[2019-04-12] MEDS: INSULIN LISPRO 100 UNIT/ML SUBCUT SCH ×4 (09:31→22:16)
[2019-04-12] MEDS: glipiZIDE 5 MG TABLET PO SCH (09:31)
[2019-04-12] MEDS: FUROSEMIDE 40 MG/4 ML VIAL IV SCH (09:31)
[2019-04-12] MEDS: TAMSULOSIN 0.4 MG CAPSULE PO SCH ×2 (09:31→20:25)
[2019-04-12] MEDS: AMIODARONE 200 MG TABLET PO SCH (09:31)
[2019-04-12] MEDS: ASPIRIN EC 325 MG TABLET PO SCH (09:31)
[2019-04-12] MEDS: MAGNESIUM HYDROXIDE SUSP 30 ML UDCUP PO PRN (09:32)
[2019-04-12] MEDS: LEVOFLOXACIN INJ 250 MG in PREMIX 1 EACH IV SCH (09:32)
[2019-04-12] MEDS: UMECLIDINIUM VILANTEROL INH SCH (12:52)
[2019-04-12] MEDS: ATORVASTATIN 20 MG TABLET PO SCH (20:25)
[2019-04-12] MEDS ORDERED: MAGNESIUM CITRATE 300 ML BOTTLE PO ONE (20:30)
[2019-04-12 21:38] LABS: Calcium 9.1 MG/DL (8.5-10.1); Osmolality,Calculated 281.5 MOS/KG (273-304)
[2019-04-13] MEDS: methylPREDNISolone SOD SUC 40 MG/1 ML VIAL IV SCH ×3 (00:29→23:57)
[2019-04-13] MEDS: ALBUTEROL/IPRATROPIUM 3 ML NEB RESP TX SCH ×5 (03:25→20:26)
[2019-04-13] MEDS: LEVOTHYROXINE 75 MCG TABLET PO SCH (06:16)
[2019-04-13] MEDS ORDERED: BISACODYL 10 MG SUPP RECTAL PRN (07:21)
[2019-04-13] MEDS: LINACLOTIDE 145 MCG CAPSULE PO SCH (09:11)
[2019-04-13] MEDS: glipiZIDE 5 MG TABLET PO SCH (09:12)
[2019-04-13] MEDS: PANTOPRAZOLE 40 MG TABLET PO SCH (09:12)
[2019-04-13] MEDS: GABAPENTIN 300 MG CAPSULE PO SCH ×3 (09:12→20:48)
[2019-04-13] MEDS: ASPIRIN EC 325 MG TABLET PO SCH (09:13)
[2019-04-13] MEDS: MULTIVITAMIN (CENTRUM) TABLET PO SCH (09:13)
[2019-04-13] MEDS: LOSARTAN 25 MG TABLET PO SCH (09:13)
[2019-04-13] MEDS: MORPHINE ER 30 MG TABLET PO SCH ×2 (09:13→20:48)
[2019-04-13] MEDS: MAGNESIUM CHLORIDE 64 MG TABLET PO SCH ×2 (09:13→20:47)
[2019-04-13] MEDS: DOCUSATE SODIUM 100 MG CAPSULE PO SCH ×2 (09:13→20:47)
[2019-04-13] MEDS: AMIODARONE 200 MG TABLET PO SCH (09:14)
[2019-04-13] MEDS: FUROSEMIDE 40 MG/4 ML VIAL IV SCH (09:14)
[2019-04-13] MEDS: TAMSULOSIN 0.4 MG CAPSULE PO SCH ×2 (09:14→20:48)
[2019-04-13] MEDS: INSULIN LISPRO 100 UNIT/ML SUBCUT SCH ×4 (09:16→20:48)
[2019-04-13] MEDS: PHENOL 1.4% THROAT SPRAY 177 ML BOTTLE PO PRN (09:24)
[2019-04-13] MEDS: BENZONATATE 100 MG CAPSULE PO PRN (09:26)
[2019-04-13] MEDS: LEVOFLOXACIN INJ 250 MG in PREMIX 1 EACH IV SCH (11:27)
[2019-04-13] MEDS: UMECLIDINIUM VILANTEROL INH SCH (14:13)
[2019-04-13] MEDS: ATORVASTATIN 20 MG TABLET PO SCH (20:47)
[2019-04-14] MEDS: ALBUTEROL/IPRATROPIUM 3 ML NEB RESP TX SCH ×7 (00:49→23:34)
[2019-04-14] MEDS: LEVOTHYROXINE 75 MCG TABLET PO SCH (08:14)
[2019-04-14] MEDS: INSULIN LISPRO 100 UNIT/ML SUBCUT SCH ×4 (08:46→21:38)
[2019-04-14] MEDS: LINACLOTIDE 145 MCG CAPSULE PO SCH ×2 (09:01→10:06)
[2019-04-14 09:56] LABS: Basophils % 0.2 % (0.0-0.8); Hematocrit 43.5 VOL% (42.0-52.0); Hemoglobin 13.3 GM/DL (14.0-18.0); Immature Granulocytes % 1.1 %; Lymphocytes # 0.6 10*3/uL (1.4-4.0); Lymphocytes % 3.1 % (21.2-54.2); Mean Corpuscular HGB Conc 30.6 GM/DL (32-36); Mean Corpuscular Volume 93.3 FL (87-102); Mean Platelet Volume 10.3 FL (9.6-12.0); Monocytes % 4.2 % (1.7-12.7); Neutrophils % 91.4 % (38.7-73.9); Platelet Count 261 T/CUMM (130-400); Red Blood Count 4.66 MC/CUMM (3.8-5.5); Red Cell Distribution Width 14.5 % (9.3-17.3); White Blood Count 18.6 T/CUMM (4-12)
[2019-04-14] MEDS: TAMSULOSIN 0.4 MG CAPSULE PO SCH ×2 (10:05→21:38)
[2019-04-14] MEDS: MULTIVITAMIN (CENTRUM) TABLET PO SCH (10:07)
[2019-04-14] MEDS: AMIODARONE 200 MG TABLET PO SCH (10:07)
[2019-04-14] MEDS: glipiZIDE 5 MG TABLET PO SCH (10:07)
[2019-04-14] MEDS: MAGNESIUM CHLORIDE 64 MG TABLET PO SCH ×2 (10:07→21:38)
[2019-04-14] MEDS: GABAPENTIN 300 MG CAPSULE PO SCH ×3 (10:07→21:38)
[2019-04-14] MEDS: DOCUSATE SODIUM 100 MG CAPSULE PO SCH ×2 (10:08→21:38)
[2019-04-14] MEDS: PANTOPRAZOLE 40 MG TABLET PO SCH (10:08)
[2019-04-14] MEDS: MORPHINE ER 30 MG TABLET PO SCH ×2 (10:08→21:38)
[2019-04-14] MEDS: ASPIRIN EC 325 MG TABLET PO SCH (10:08)
[2019-04-14] MEDS: BENZONATATE 100 MG CAPSULE PO PRN ×2 (10:08→21:38)
[2019-04-14] MEDS: LOSARTAN 25 MG TABLET PO SCH (10:09)
[2019-04-14] MEDS: FUROSEMIDE 40 MG/4 ML VIAL IV SCH (10:13)
[2019-04-14 10:15] LABS: Albumin 3.3 G/DL (3.4-5.0); Bilirubin,Total 0.6 MG/DL (0.2-1.0); Calcium 9.2 MG/DL (8.5-10.1); Osmolality,Calculated 278.7 MOS/KG (273-304); Total Protein 6.7 G/DL (6.4-8.3)
[2019-04-14 10:17] LABS: Lymphocytes 4 % (20-55); Platelet Estimate Adequate; Segmented Neutrophils 91 % (50-85); Total Cells Counted 100
[2019-04-14 10:18] LABS: Hypochromasia Slight
[2019-04-14] MEDS: methylPREDNISolone SOD SUC 40 MG/1 ML VIAL IV SCH (11:41)
[2019-04-14 13:41] LABS: Albumin 3.1 G/DL (3.4-5.0); Bilirubin,Direct 0.16 MG/DL (0.0-0.20); Bilirubin,Indirect 0.6 MG/DL (0.0-1.0); Bilirubin,Total 0.8 MG/DL (0.2-1.0); Total Protein 6.3 G/DL (6.4-8.3)
[2019-04-14] MEDS: UMECLIDINIUM VILANTEROL INH SCH (14:47)
[2019-04-14] MEDS: ATORVASTATIN 20 MG TABLET PO SCH (21:38)
[2019-04-15] MEDS: methylPREDNISolone SOD SUC 40 MG/1 ML VIAL IV SCH ×2 (00:33→14:30)
[2019-04-15] MEDS: ALBUTEROL/IPRATROPIUM 3 ML NEB RESP TX SCH ×7 (01:10→23:42)
[2019-04-15 05:48] LABS: Basophils % 0.1 % (0.0-0.8); Hematocrit 40.7 VOL% (42.0-52.0); Hemoglobin 12.5 GM/DL (14.0-18.0); Immature Granulocytes % 1.2 %; Immature Granulocytes Absolute 0.25 #; Lymphocytes # 0.6 10*3/uL (1.4-4.0); Lymphocytes % 2.7 % (21.2-54.2); Mean Corpuscular HGB Conc 30.7 GM/DL (32-36); Mean Corpuscular Volume 92.7 FL (87-102); Mean Platelet Volume 11.4 FL (9.6-12.0); Monocytes % 3.4 % (1.7-12.7); Neutrophils % 92.6 % (38.7-73.9); Platelet Count 280 T/CUMM (130-400); Red Blood Count 4.39 MC/CUMM (3.8-5.5); Red Cell Distribution Width 14.6 % (9.3-17.3); White Blood Count 20.6 T/CUMM (4-12)
[2019-04-15 06:01] LABS: Hypochromasia 1+; Lymphocytes 3 % (20-55); Ovalocytes Slight; Platelet Estimate Adequate; Segmented Neutrophils 95 % (50-85); Total Cells Counted 100
[2019-04-15 06:16] LABS: Albumin 3.3 G/DL (3.4-5.0); Bilirubin,Direct 0.15 MG/DL (0.0-0.20); Bilirubin,Indirect 0.7 MG/DL (0.0-1.0); Bilirubin,Total 0.8 MG/DL (0.2-1.0); Calcium 9.1 MG/DL (8.5-10.1); Osmolality,Calculated 279.5 MOS/KG (273-304); Total Protein 6.6 G/DL (6.4-8.3)
[2019-04-15] MEDS ORDERED: LACTATED RINGERS 1,000 ML IV SCH (08:00)
[2019-04-15] MEDS ORDERED: PROPOFOL 200 MG/20 ML VIAL IV ONE (09:00)
[2019-04-15] MEDS ORDERED: PHENYLEPHRINE 1 MG/10 ML SYRINGE IV ONE (09:00)
[2019-04-15] MEDS ORDERED: LIDOCAINE 2% 5 ML VIAL ONE (09:00)
[2019-04-15] MEDS: INSULIN LISPRO 100 UNIT/ML SUBCUT SCH ×4 (09:15→21:43)
[2019-04-15] MEDS: FUROSEMIDE 40 MG/4 ML VIAL IV SCH (09:15)
[2019-04-15] MEDS ORDERED: DEXTROSE 50% 25 GM/50 ML VIAL IV PRN (14:18)
[2019-04-15] MEDS: glipiZIDE 5 MG TABLET PO SCH (14:42)
[2019-04-15] MEDS: MAGNESIUM CHLORIDE 64 MG TABLET PO SCH ×2 (14:42→21:43)
[2019-04-15] MEDS: TAMSULOSIN 0.4 MG CAPSULE PO SCH ×2 (14:42→21:39)
[2019-04-15] MEDS: MORPHINE ER 30 MG TABLET PO SCH ×2 (14:43→21:39)
[2019-04-15] MEDS: PANTOPRAZOLE 40 MG TABLET PO SCH (14:43)
[2019-04-15] MEDS: LEVOTHYROXINE 75 MCG TABLET PO SCH (14:43)
[2019-04-15] MEDS: MULTIVITAMIN (CENTRUM) TABLET PO SCH (14:43)
[2019-04-15] MEDS: LOSARTAN 25 MG TABLET PO SCH (14:43)
[2019-04-15] MEDS: DOCUSATE SODIUM 100 MG CAPSULE PO SCH ×2 (14:43→21:39)
[2019-04-15] MEDS: GABAPENTIN 300 MG CAPSULE PO SCH ×3 (14:43→21:39)
[2019-04-15] MEDS: ASPIRIN EC 325 MG TABLET PO SCH (14:44)
[2019-04-15] MEDS: LINACLOTIDE 145 MCG CAPSULE PO SCH (14:44)
[2019-04-15] MEDS: UMECLIDINIUM VILANTEROL INH SCH (14:44)
[2019-04-15] MEDS: AMIODARONE 200 MG TABLET PO SCH (14:44)
[2019-04-15] MEDS ORDERED: FLUCONAZOLE 200 MG TABLET PO ONE (15:00)
[2019-04-15] MEDS: ATORVASTATIN 20 MG TABLET PO SCH (21:39)
[2019-04-16] MEDS: ALBUTEROL/IPRATROPIUM 3 ML NEB RESP TX SCH ×5 (02:26→14:01)
[2019-04-16] MEDS: LEVOTHYROXINE 75 MCG TABLET PO SCH (06:17)
[2019-04-16] MEDS: MAGNESIUM CHLORIDE 64 MG TABLET PO SCH (08:55)
[2019-04-16] MEDS: glipiZIDE 5 MG TABLET PO SCH (08:55)
[2019-04-16] MEDS: DOCUSATE SODIUM 100 MG CAPSULE PO SCH (08:55)
[2019-04-16] MEDS: LOSARTAN 25 MG TABLET PO SCH (08:55)
[2019-04-16] MEDS: ASPIRIN EC 325 MG TABLET PO SCH (08:55)
[2019-04-16] MEDS: GABAPENTIN 300 MG CAPSULE PO SCH ×2 (08:55→15:47)
[2019-04-16] MEDS: MORPHINE ER 30 MG TABLET PO SCH (08:55)
[2019-04-16] MEDS: PANTOPRAZOLE 40 MG TABLET PO SCH (08:56)
[2019-04-16] MEDS: FUROSEMIDE 40 MG/4 ML VIAL IV SCH (08:56)
[2019-04-16] MEDS: MULTIVITAMIN (CENTRUM) TABLET PO SCH (08:56)
[2019-04-16] MEDS: TAMSULOSIN 0.4 MG CAPSULE PO SCH (08:56)
[2019-04-16] MEDS: INSULIN LISPRO 100 UNIT/ML SUBCUT SCH ×2 (08:57→12:04)
[2019-04-16] MEDS ORDERED: FLUCONAZOLE 100 MG TABLET PO SCH (09:00)
[2019-04-16] MEDS ORDERED: methylPREDNISolone SOD SUC 40 MG/1 ML VIAL IV SCH (09:00)
[2019-04-16] MEDS: LINACLOTIDE 145 MCG CAPSULE PO SCH (09:01)
[2019-04-16] MEDS: AMIODARONE 200 MG TABLET PO SCH (09:01)
[2019-04-16 11:40] VITALS: BP 125/85
[2019-04-16] MEDS: UMECLIDINIUM VILANTEROL INH SCH (15:18)
== END 2019-04-16 15:59 | disposition home health service (06) | DRG 190 ==
LOC: N.EDINP 07:57 → N.ED 07:57 → N.2E 11:46
PROVIDERS: ADMIT Family Medicine; ATTEND Family Medicine

== ENCOUNTER 2019-04-19 10:37 | Inpatient (IN) ==
[2019-04-19] MEDS ORDERED: ALBUTEROL/IPRATROPIUM 3 ML NEB RESP TX STA (10:59)
[2019-04-19 11:40] LABS: ABG Base Excess 6.1 MMOL/L (-2.5-2.5); ABG Oxygen Saturation 96.6 % (95-100); ABG PH 7.446 (7.35-7.45); ABG PO2 89.3 MM HG (80-95); ABG TCO2 32.4 MMOL/L (23-27)
[2019-04-19 13:24] LABS: Basophils % 0.1 % (0.0-0.8); Hematocrit 39.5 VOL% (42.0-52.0); Hemoglobin 12.3 GM/DL (14.0-18.0); Immature Granulocytes % 0.9 %; Immature Granulocytes Absolute 0.14 #; Lymphocytes # 0.6 10*3/uL (1.4-4.0); Lymphocytes % 3.5 % (21.2-54.2); Mean Corpuscular HGB Conc 31.1 GM/DL (32-36); Mean Corpuscular Volume 92.1 FL (87-102); Monocytes % 3.9 % (1.7-12.7); Neutrophils % 91.6 % (38.7-73.9); Platelet Count 141 T/CUMM (130-400); Red Blood Count 4.29 MC/CUMM (3.8-5.5); Red Cell Distribution Width 14.5 % (9.3-17.3); White Blood Count 16.2 T/CUMM (4-12)
[2019-04-19 14:01] LABS: Albumin 3.3 G/DL (3.4-5.0); Bilirubin,Total 1.2 MG/DL (0.2-1.0); Calcium 8.7 MG/DL (8.5-10.1); Osmolality,Calculated 272.9 MOS/KG (273-304); Total Protein 6.5 G/DL (6.4-8.3)
[2019-04-19 14:11] LABS: Lymphocytes 3 % (20-55); Platelet Estimate Normal; Segmented Neutrophils 94 % (50-85); Total Cells Counted 100
[2019-04-19] MEDS ORDERED: LEVOFLOXACIN INJ 500 MG in PREMIX 1 EACH IV STA (14:36)
[2019-04-19] MEDS ORDERED: AMMONIA INHALANT 1 EACH AMP INH ONE (14:43)
[2019-04-19] MEDS ORDERED: DEXTROSE 50% 25 GM/50 ML VIAL IV PRN (14:55)
[2019-04-19] MEDS ORDERED: GLUCAGON 1 MG VIAL IM PRN (14:55)
[2019-04-19] MEDS: ALBUTEROL/IPRATROPIUM 3 ML NEB RESP TX SCH ×3 (15:07→22:50)
[2019-04-19] MEDS: LEVOFLOXACIN INJ 500 MG in PREMIX 1 EACH IV SCH (15:30)
[2019-04-19] MEDS: ACETAMINOPHEN 325 MG TABLET PO PRN (17:55)
[2019-04-19] MEDS: INSULIN LISPRO 100 UNIT/ML SUBCUT SCH ×2 (18:21→20:41)
[2019-04-19] MEDS: SODIUM CHLORIDE 0.45% 1,000 ML IV SCH (18:25)
[2019-04-19] MEDS ORDERED: NITROGLYCERIN SL 0.4 MG TABLET SL PRN (19:20)
[2019-04-19] MEDS: AMITRIPTYLINE 50 MG TABLET PO SCH (20:37)
[2019-04-19] MEDS: GABAPENTIN 300 MG CAPSULE PO SCH (20:37)
[2019-04-19] MEDS: DOCUSATE SODIUM 100 MG CAPSULE PO SCH (20:38)
[2019-04-19] MEDS: ATORVASTATIN 20 MG TABLET PO SCH (20:38)
[2019-04-19] MEDS: MORPHINE ER 30 MG TABLET PO SCH (20:39)
[2019-04-19] MEDS: glipiZIDE 5 MG TABLET PO SCH (20:40)
[2019-04-19] MEDS: TAMSULOSIN 0.4 MG CAPSULE PO SCH (20:40)
[2019-04-19] MEDS: metFORMIN 500 MG TABLET PO SCH ×2 (20:41→21:29)
[2019-04-19 21:35] LABS: Apearance,Urine Slightly Hazy (Clear); Bilirubin,Urine Negative (Negative); Blood, Urine Negative (Negative); Glucose,Urine (UA) 50 mg/dL (Negative); Hyaline Casts,Urine 3 /LPF (0-3); Ketones,Urine 5 mg/dL (Negative); Mucus,Urine Occasional /LPF (Occasional); Nitrite,Urine Negative (Negative); Protein,Urine 100 MG/DL; RBC,Urine <1 /HPF (0-4); Squamous Epithelial Cell,Urine Occasional /HPF (0-10); Urine Specific Gravity 1.024 (1.001-1.035); Urine Urobilinogen < 2.0 EU/DL (0.2-1.0); WBC,Urine 3 /HPF (0-6)
[2019-04-19 21:36] LABS: Urine Color Dark yellow (Yellow)
[2019-04-19] MEDS: ONDANSETRON 4 MG/2 ML VIAL IV PRN (21:37)
[2019-04-19] MEDS: Umeclidinium-Vilanterol [Anoro Ellipta] INH SCH (21:42)
[2019-04-20] MEDS: MIRTAZAPINE 15 MG TABLET PO PRN (02:25)
[2019-04-20] MEDS: ALBUTEROL/IPRATROPIUM 3 ML NEB RESP TX SCH ×6 (02:51→23:43)
[2019-04-20] MEDS: LEVOTHYROXINE 75 MCG TABLET PO SCH (06:55)
[2019-04-20 07:29] LABS: Basophils % 0.2 % (0.0-0.8); Eosinophils # 0.1 10*3/uL (0.0-0.87); Eosinophils % 0.6 % (0.00-10.9); Hematocrit 40.7 VOL% (42.0-52.0); Hemoglobin 12.4 GM/DL (14.0-18.0); Immature Granulocytes % 0.7 %; Immature Granulocytes Absolute 0.12 #; Lymphocytes # 1.3 10*3/uL (1.4-4.0); Lymphocytes % 7.4 % (21.2-54.2); Mean Corpuscular HGB Conc 30.5 GM/DL (32-36); Mean Corpuscular Volume 93.3 FL (87-102); Mean Platelet Volume 11.9 FL (9.6-12.0); Monocytes % 6.8 % (1.7-12.7); Neutrophils % 84.3 % (38.7-73.9); Platelet Count 218 T/CUMM (130-400); Red Blood Count 4.36 MC/CUMM (3.8-5.5); Red Cell Distribution Width 14.5 % (9.3-17.3); White Blood Count 16.8 T/CUMM (4-12)
[2019-04-20 07:59] LABS: Albumin 3.1 G/DL (3.4-5.0); Bilirubin,Total 1.1 MG/DL (0.2-1.0); Calcium 8.8 MG/DL (8.5-10.1); Osmolality,Calculated 274.7 MOS/KG (273-304); Total Protein 6.3 G/DL (6.4-8.3)
[2019-04-20] MEDS: MULTIVITAMIN (CENTRUM) TABLET PO SCH (08:27)
[2019-04-20] MEDS: PANTOPRAZOLE 40 MG TABLET PO SCH (08:27)
[2019-04-20] MEDS: LOSARTAN 25 MG TABLET PO SCH (08:27)
[2019-04-20] MEDS: glipiZIDE 5 MG TABLET PO SCH ×2 (08:27→21:14)
[2019-04-20] MEDS: DOCUSATE SODIUM 100 MG CAPSULE PO SCH ×2 (08:28→21:13)
[2019-04-20] MEDS: metFORMIN 500 MG TABLET PO SCH (08:28)
[2019-04-20] MEDS: INSULIN LISPRO 100 UNIT/ML SUBCUT SCH ×4 (08:28→21:15)
[2019-04-20] MEDS: FERROUS GLUCONATE 240 MG TABLET PO SCH (08:29)
[2019-04-20] MEDS: GABAPENTIN 300 MG CAPSULE PO SCH ×2 (08:29→21:14)
[2019-04-20] MEDS: TAMSULOSIN 0.4 MG CAPSULE PO SCH ×2 (08:29→21:13)
[2019-04-20] MEDS: MORPHINE ER 30 MG TABLET PO SCH ×2 (08:29→21:14)
[2019-04-20] MEDS: FLUCONAZOLE 100 MG TABLET PO SCH (08:30)
[2019-04-20] MEDS ORDERED: ALBUTEROL/IPRATROPIUM 3 ML NEB RESP TX PRN (13:36)
[2019-04-20] MEDS ORDERED: NON-FORMULARY MEDICATION (Albuterol Sulfate [Proair Hfa] 2 PUFF) INH PRN (14:41)
[2019-04-20] MEDS ORDERED: ZALEPLON 5 MG CAPSULE PO PRN (15:00)
[2019-04-20] MEDS ORDERED: ALBUTEROL/IPRATROPIUM 3 ML NEB RESP TX SCH (15:00)
[2019-04-20] MEDS: LEVOFLOXACIN INJ 500 MG in PREMIX 1 EACH IV SCH (15:32)
[2019-04-20] MEDS: ONDANSETRON 4 MG/2 ML VIAL IV PRN (16:52)
[2019-04-20] MEDS ORDERED: DOCUSATE SODIUM 100 MG CAPSULE PO SCH (21:00)
[2019-04-20] MEDS ORDERED: NON-FORMULARY MEDICATION (Omeprazole 20 MG) PO SCH (21:00)
[2019-04-20] MEDS: AMITRIPTYLINE 50 MG TABLET PO SCH (21:13)
[2019-04-20] MEDS: ATORVASTATIN 20 MG TABLET PO SCH (21:14)
[2019-04-20] MEDS: Umeclidinium-Vilanterol [Anoro Ellipta] INH SCH (22:06)
[2019-04-21] MEDS: SODIUM CHLORIDE 0.45% 1,000 ML IV SCH (00:55)
[2019-04-21 01:02] LABS: Basophils % 0.2 % (0.0-0.8); Eosinophils % 0.1 % (0.00-10.9); Hematocrit 41.3 VOL% (42.0-52.0); Hemoglobin 12.6 GM/DL (14.0-18.0); Immature Granulocytes % 1.2 %; Immature Granulocytes Absolute 0.25 #; Lymphocytes # 0.7 10*3/uL (1.4-4.0); Lymphocytes % 3.5 % (21.2-54.2); Mean Corpuscular HGB Conc 30.5 GM/DL (32-36); Mean Platelet Volume 12.2 FL (9.6-12.0); Platelet Count 189 T/CUMM (130-400); Red Blood Count 4.44 MC/CUMM (3.8-5.5); Red Cell Distribution Width 14.3 % (9.3-17.3); White Blood Count 20.1 T/CUMM (4-12)
[2019-04-21] MEDS: Umeclidinium-Vilanterol [Anoro Ellipta] INH SCH ×2 (01:05→22:20)
[2019-04-21 01:28] LABS: Albumin 3.1 G/DL (3.4-5.0); Bilirubin,Total 2.2 MG/DL (0.2-1.0); Calcium 8.5 MG/DL (8.5-10.1); Osmolality,Calculated 268.1 MOS/KG (273-304); Total Protein 6.3 G/DL (6.4-8.3)
[2019-04-21 01:31] LABS: Lymphocytes 5 % (20-55); Platelet Estimate Normal; Segmented Neutrophils 91 % (50-85); Total Cells Counted 100
[2019-04-21] MEDS: ALBUTEROL/IPRATROPIUM 3 ML NEB RESP TX SCH ×6 (03:25→23:50)
[2019-04-21] MEDS: LEVOTHYROXINE 75 MCG TABLET PO SCH (05:47)
[2019-04-21] MEDS: INSULIN LISPRO 100 UNIT/ML SUBCUT SCH ×4 (07:42→21:39)
[2019-04-21] MEDS ORDERED: FUROSEMIDE 20 MG/2 ML VIAL IV SCH (09:00)
[2019-04-21] MEDS: PANTOPRAZOLE 40 MG TABLET PO SCH (09:04)
[2019-04-21] MEDS: LOSARTAN 25 MG TABLET PO SCH (09:04)
[2019-04-21] MEDS: BENZONATATE 100 MG CAPSULE PO PRN (09:05)
[2019-04-21] MEDS: ASPIRIN EC 325 MG TABLET PO SCH (09:06)
[2019-04-21] MEDS: MULTIVITAMIN (CENTRUM) TABLET PO SCH (09:06)
[2019-04-21] MEDS: FERROUS GLUCONATE 240 MG TABLET PO SCH (09:06)
[2019-04-21] MEDS: FLUCONAZOLE 100 MG TABLET PO SCH (09:06)
[2019-04-21] MEDS: glipiZIDE 5 MG TABLET PO SCH (09:06)
[2019-04-21] MEDS: DOCUSATE SODIUM 100 MG CAPSULE PO SCH ×2 (09:07→22:06)
[2019-04-21] MEDS: GABAPENTIN 300 MG CAPSULE PO SCH ×2 (09:07→22:06)
[2019-04-21] MEDS: MORPHINE ER 30 MG TABLET PO SCH ×2 (09:07→21:21)
[2019-04-21] MEDS: TAMSULOSIN 0.4 MG CAPSULE PO SCH ×2 (09:07→22:06)
[2019-04-21] MEDS: FUROSEMIDE 20 MG/2 ML VIAL IV SCH ×2 (11:46→15:42)
[2019-04-21] MEDS: LEVOFLOXACIN INJ 500 MG in PREMIX 1 EACH IV SCH (11:48)
[2019-04-21 13:52] LABS: Albumin 3.1 G/DL (3.4-5.0); Bilirubin,Direct 0.6 MG/DL (0.0-0.20); Bilirubin,Indirect 0.6 MG/DL (0.0-1.0); Bilirubin,Total 1.2 MG/DL (0.2-1.0); Total Protein 6.3 G/DL (6.4-8.3)
[2019-04-21 13:56] LABS: Calcium 8.3 MG/DL (8.5-10.1); Osmolality,Calculated 268.4 MOS/KG (273-304)
[2019-04-21] MEDS ORDERED: NALOXONE 0.4 MG/ML VIAL ONE (14:12)
[2019-04-21] MEDS ORDERED: NALOXONE 0.4 MG/ML VIAL IV ONE ×2 (14:30)
[2019-04-21 14:39] LABS: Allen Test Positive
[2019-04-21 14:40] LABS: ABG Base Excess 5.6 MMOL/L (-2.5-2.5); ABG HCO3 28.1 MMOL/L (20-26); ABG Oxygen Saturation 31.4 % (95-100); ABG PH 7.293 (7.35-7.45)
[2019-04-21 14:46] LABS: Hepatitis B Core IgM Quant 0.19 Index; Hepatitis B Surface Ag Quant < 0.10 Index; Hepatitis B Surface Ag Result Negative (Negative); Hepatitis C Virus Ab Quant 0.09 Index; Hepatitis C Virus Ab Result Negative (Negative)
[2019-04-21 15:28] LABS: ABG Base Excess 4.7 MMOL/L (-2.5-2.5); ABG HCO3 28.6 MMOL/L (20-26); ABG Oxygen Saturation 96.7 % (95-100); ABG PCO2 57.9 MM HG (35-48); ABG PH 7.349 (7.35-7.45); ABG PO2 89.5 MM HG (80-95); ABG TCO2 28.7 MMOL/L (23-27); Allen Test Positive
[2019-04-21 15:43] LABS: Apearance,Urine CLEAR (Clear); Bacteria,Urine Occasional /HPF (Few); Bilirubin,Urine Negative (Negative); Blood, Urine Negative (Negative); Glucose,Urine (UA) Negative (Negative); Hyaline Casts,Urine 14 /LPF (0-3); Ketones,Urine 5 mg/dL (Negative); Nitrite,Urine Negative (Negative); Protein,Urine 30 MG/DL; RBC,Urine <1 /HPF (0-4); Squamous Epithelial Cell,Urine Occasional /HPF (0-10); Transitional Epi Cells,Urine Occasional /HPF (<1); Urine Color Yellow (Yellow); Urine Specific Gravity 1.017 (1.001-1.035); Urine Urobilinogen < 2.0 EU/DL (0.2-1.0); WBC,Urine 3 /HPF (0-6)
[2019-04-21] MEDS: methylPREDNISolone SOD SUC 40 MG/1 ML VIAL IV SCH (18:08)
[2019-04-22] MEDS: BENZONATATE 100 MG CAPSULE PO PRN ×2 (02:13→22:46)
[2019-04-22] MEDS: SODIUM CHLORIDE 0.45% 1,000 ML IV SCH ×2 (02:13→14:23)
[2019-04-22] MEDS: methylPREDNISolone SOD SUC 40 MG/1 ML VIAL IV SCH ×3 (02:18→16:58)
[2019-04-22] MEDS: ALBUTEROL/IPRATROPIUM 3 ML NEB RESP TX SCH ×6 (03:53→23:30)
[2019-04-22 04:28] LABS: Basophils % 0.1 % (0.0-0.8); Hematocrit 37.5 VOL% (42.0-52.0); Hemoglobin 11.4 GM/DL (14.0-18.0); Immature Granulocytes % 0.8 %; Immature Granulocytes Absolute 0.11 #; Lymphocytes # 0.2 10*3/uL (1.4-4.0); Lymphocytes % 1.6 % (21.2-54.2); Mean Corpuscular HGB Conc 30.4 GM/DL (32-36); Mean Corpuscular Volume 92.8 FL (87-102); Mean Platelet Volume 11.9 FL (9.6-12.0); Monocytes % 1.6 % (1.7-12.7); Neutrophils % 95.9 % (38.7-73.9); Platelet Count 176 T/CUMM (130-400); Red Blood Count 4.04 MC/CUMM (3.8-5.5); Red Cell Distribution Width 14.4 % (9.3-17.3); White Blood Count 13.6 T/CUMM (4-12)
[2019-04-22 04:51] LABS: Bilirubin,Direct 0.57 MG/DL (0.0-0.20); Bilirubin,Indirect 0.5 MG/DL (0.0-1.0); Bilirubin,Total 1.1 MG/DL (0.2-1.0); Calcium 8.2 MG/DL (8.5-10.1); Osmolality,Calculated 271.2 MOS/KG (273-304); Total Protein 5.7 G/DL (6.4-8.3)
[2019-04-22 05:22] LABS: Lymphocytes 1 % (20-55); Polychromasia Few; Segmented Neutrophils 99 % (50-85); Total Cells Counted 100
[2019-04-22 05:23] LABS: Platelet Estimate Adequate
[2019-04-22 05:43] LABS: ABG PO2 23.4 MM HG (80-95)
[2019-04-22] MEDS: LEVOTHYROXINE 75 MCG TABLET PO SCH (06:08)
[2019-04-22] MEDS: INSULIN LISPRO 100 UNIT/ML SUBCUT SCH ×4 (08:51→20:36)
[2019-04-22] MEDS: FUROSEMIDE 20 MG/2 ML VIAL IV SCH ×2 (08:52→16:58)
[2019-04-22] MEDS: DOCUSATE SODIUM 100 MG CAPSULE PO SCH ×2 (08:54→20:35)
[2019-04-22] MEDS: ASPIRIN EC 325 MG TABLET PO SCH (08:54)
[2019-04-22] MEDS: MULTIVITAMIN (CENTRUM) TABLET PO SCH (08:54)
[2019-04-22] MEDS: LOSARTAN 25 MG TABLET PO SCH (08:54)
[2019-04-22] MEDS: FERROUS GLUCONATE 240 MG TABLET PO SCH (08:55)
[2019-04-22] MEDS: LEVOFLOXACIN INJ 500 MG in PREMIX 1 EACH IV SCH (08:56)
[2019-04-22] MEDS: TAMSULOSIN 0.4 MG CAPSULE PO SCH ×2 (08:56→20:35)
[2019-04-22] MEDS: GABAPENTIN 300 MG CAPSULE PO SCH ×2 (08:57→20:34)
[2019-04-22] MEDS: PANTOPRAZOLE 40 MG TABLET PO SCH (08:57)
[2019-04-22] MEDS: MORPHINE ER 30 MG TABLET PO SCH (09:06)
[2019-04-22] MEDS: Umeclidinium-Vilanterol [Anoro Ellipta] INH SCH (20:36)
[2019-04-23] MEDS: ALBUTEROL/IPRATROPIUM 3 ML NEB RESP TX SCH ×6 (03:27→23:04)
[2019-04-23] MEDS: methylPREDNISolone SOD SUC 40 MG/1 ML VIAL IV SCH ×4 (04:16→22:25)
[2019-04-23 05:25] LABS: Basophils % 0.1 % (0.0-0.8); Hematocrit 36.7 VOL% (42.0-52.0); Hemoglobin 11.6 GM/DL (14.0-18.0); Immature Granulocytes Absolute 0.17 #; Lymphocytes # 0.2 10*3/uL (1.4-4.0); Lymphocytes % 1.3 % (21.2-54.2); Mean Corpuscular HGB Conc 31.6 GM/DL (32-36); Mean Corpuscular Volume 90.2 FL (87-102); Mean Platelet Volume 11.6 FL (9.6-12.0); Monocytes % 2.7 % (1.7-12.7); NRBC # 0.02 10*3/uL; Neutrophils % 94.9 % (38.7-73.9); Platelet Count 182 T/CUMM (130-400); Red Blood Count 4.07 MC/CUMM (3.8-5.5); Red Cell Distribution Width 14.6 % (9.3-17.3); White Blood Count 17.9 T/CUMM (4-12)
[2019-04-23 05:49] LABS: Band Neutrophils 3 % (0-10); Lymphocytes 2 % (20-55); Platelet Estimate Normal; Segmented Neutrophils 93 % (50-85); Total Cells Counted 100
[2019-04-23 05:53] LABS: Albumin 3.1 G/DL (3.4-5.0); Bilirubin,Direct 0.34 MG/DL (0.0-0.20); Bilirubin,Indirect 0.6 MG/DL (0.0-1.0); Bilirubin,Total 0.9 MG/DL (0.2-1.0); Calcium 8.7 MG/DL (8.5-10.1); Osmolality,Calculated 266.8 MOS/KG (273-304); Total Protein 6.1 G/DL (6.4-8.3)
[2019-04-23] MEDS: SODIUM CHLORIDE 0.45% 1,000 ML IV SCH (07:30)
[2019-04-23] MEDS: LEVOTHYROXINE 75 MCG TABLET PO SCH (08:39)
[2019-04-23] MEDS: SODIUM CHLORIDE 0.9% 1,000 ML IV SCH ×2 (08:39→22:05)
[2019-04-23] MEDS: INSULIN LISPRO 100 UNIT/ML SUBCUT SCH ×4 (08:40→22:20)
[2019-04-23] MEDS: FUROSEMIDE 20 MG/2 ML VIAL IV SCH (09:15)
[2019-04-23] MEDS: MULTIVITAMIN (CENTRUM) TABLET PO SCH (09:16)
[2019-04-23] MEDS: FERROUS GLUCONATE 240 MG TABLET PO SCH (09:16)
[2019-04-23] MEDS: PANTOPRAZOLE 40 MG TABLET PO SCH (09:16)
[2019-04-23] MEDS: ASPIRIN EC 325 MG TABLET PO SCH (09:17)
[2019-04-23] MEDS: LOSARTAN 25 MG TABLET PO SCH (09:17)
[2019-04-23] MEDS: LEVOFLOXACIN INJ 500 MG in PREMIX 1 EACH IV SCH (09:18)
[2019-04-23] MEDS: GABAPENTIN 300 MG CAPSULE PO SCH ×2 (09:18→20:53)
[2019-04-23] MEDS: DOCUSATE SODIUM 100 MG CAPSULE PO SCH ×2 (09:18→20:53)
[2019-04-23] MEDS: TAMSULOSIN 0.4 MG CAPSULE PO SCH ×2 (09:18→20:53)
[2019-04-23] MEDS ORDERED: MELATONIN 3 MG TABLET PO PRN (12:02)
[2019-04-23 14:39] LABS: Albumin 2.9 G/DL (3.4-5.0); Bilirubin,Total 0.8 MG/DL (0.2-1.0); Calcium 8.5 MG/DL (8.5-10.1); Osmolality,Calculated 266.9 MOS/KG (273-304)
[2019-04-23] MEDS: METOPROLOL TARTRATE 25 MG TABLET PO SCH (20:51)
[2019-04-23] MEDS: MIRTAZAPINE 15 MG TABLET PO PRN (20:51)
[2019-04-23] MEDS: Umeclidinium-Vilanterol [Anoro Ellipta] INH SCH (22:25)
[2019-04-23] MEDS: BENZONATATE 100 MG CAPSULE PO PRN (23:19)
[2019-04-24] MEDS: ALBUTEROL/IPRATROPIUM 3 ML NEB RESP TX SCH ×6 (02:54→23:22)
[2019-04-24 05:48] LABS: Basophils % 0.1 % (0.0-0.8); Hematocrit 36.9 VOL% (42.0-52.0); Hemoglobin 11.6 GM/DL (14.0-18.0); Immature Granulocytes % 0.6 %; Lymphocytes # 0.2 10*3/uL (1.4-4.0); Lymphocytes % 1.4 % (21.2-54.2); Mean Corpuscular HGB Conc 31.4 GM/DL (32-36); Mean Corpuscular Volume 90.9 FL (87-102); Mean Platelet Volume 12.2 FL (9.6-12.0); Monocytes % 3.5 % (1.7-12.7); Neutrophils % 94.4 % (38.7-73.9); Platelet Count 188 T/CUMM (130-400); Red Blood Count 4.06 MC/CUMM (3.8-5.5); Red Cell Distribution Width 15.1 % (9.3-17.3); White Blood Count 15.8 T/CUMM (4-12)
[2019-04-24 06:07] LABS: Band Neutrophils 2 % (0-10); Hypochromasia 1+; Lymphocytes 1 % (20-55); Platelet Estimate Adequate; Segmented Neutrophils 92 % (50-85); Total Cells Counted 100
[2019-04-24 06:15] LABS: Albumin 2.9 G/DL (3.4-5.0); Bilirubin,Direct 0.29 MG/DL (0.0-0.20); Bilirubin,Indirect 0.4 MG/DL (0.0-1.0); Bilirubin,Total 0.7 MG/DL (0.2-1.0); Calcium 8.5 MG/DL (8.5-10.1); Osmolality,Calculated 268.9 MOS/KG (273-304); Total Protein 5.9 G/DL (6.4-8.3)
[2019-04-24] MEDS: LEVOTHYROXINE 75 MCG TABLET PO SCH (06:43)
[2019-04-24] MEDS: DOCUSATE SODIUM 100 MG CAPSULE PO SCH ×2 (09:29→20:21)
[2019-04-24] MEDS: LOSARTAN 25 MG TABLET PO SCH (09:29)
[2019-04-24] MEDS: GABAPENTIN 300 MG CAPSULE PO SCH ×2 (09:30→20:21)
[2019-04-24] MEDS: ASPIRIN EC 325 MG TABLET PO SCH (09:31)
[2019-04-24] MEDS: PANTOPRAZOLE 40 MG TABLET PO SCH (09:31)
[2019-04-24] MEDS: METOPROLOL TARTRATE 25 MG TABLET PO SCH ×2 (09:31→20:21)
[2019-04-24] MEDS: TAMSULOSIN 0.4 MG CAPSULE PO SCH ×2 (09:32→20:21)
[2019-04-24] MEDS: MULTIVITAMIN (CENTRUM) TABLET PO SCH (09:32)
[2019-04-24] MEDS: methylPREDNISolone SOD SUC 40 MG/1 ML VIAL IV SCH ×2 (09:33→22:02)
[2019-04-24] MEDS: FUROSEMIDE 40 MG/4 ML VIAL IV SCH (09:35)
[2019-04-24] MEDS: FERROUS GLUCONATE 240 MG TABLET PO SCH (10:14)
[2019-04-24] MEDS: LEVOFLOXACIN INJ 500 MG in PREMIX 1 EACH IV SCH (10:42)
[2019-04-24] MEDS: SODIUM CHLORIDE 0.9% 1,000 ML IV SCH ×3 (10:42→22:04)
[2019-04-24] MEDS: INSULIN LISPRO 100 UNIT/ML SUBCUT SCH ×4 (12:06→20:21)
[2019-04-24] MEDS: ONDANSETRON 4 MG/2 ML VIAL IV PRN (19:36)
[2019-04-24] MEDS: MIRTAZAPINE 15 MG TABLET PO PRN (20:20)
[2019-04-24] MEDS: Umeclidinium-Vilanterol [Anoro Ellipta] INH SCH (20:22)
[2019-04-24] MEDS: QUEtiapine 25 MG TABLET PO SCH (20:22)
[2019-04-24] MEDS: BENZONATATE 100 MG CAPSULE PO PRN (23:22)
[2019-04-25] MEDS: ALBUTEROL/IPRATROPIUM 3 ML NEB RESP TX SCH ×7 (03:24→23:58)
[2019-04-25 05:32] LABS: Basophils % 0.2 % (0.0-0.8); Eosinophils % 0.1 % (0.00-10.9); Hematocrit 41.1 VOL% (42.0-52.0); Hemoglobin 12.7 GM/DL (14.0-18.0); Immature Granulocytes % 0.8 %; Immature Granulocytes Absolute 0.14 #; Lymphocytes # 0.2 10*3/uL (1.4-4.0); Lymphocytes % 1.1 % (21.2-54.2); Mean Corpuscular HGB Conc 30.9 GM/DL (32-36); Mean Corpuscular Volume 94.5 FL (87-102); Mean Platelet Volume 11.1 FL (9.6-12.0); Monocytes % 3.8 % (1.7-12.7); NRBC # 0.03 10*3/uL; Platelet Count 189 T/CUMM (130-400); Red Blood Count 4.35 MC/CUMM (3.8-5.5); Red Cell Distribution Width 15.2 % (9.3-17.3); White Blood Count 17.7 T/CUMM (4-12)
[2019-04-25] MEDS: LEVOTHYROXINE 75 MCG TABLET PO SCH (05:44)
[2019-04-25 05:52] LABS: Albumin 2.9 G/DL (3.4-5.0); Bilirubin,Direct 0.35 MG/DL (0.0-0.20); Bilirubin,Indirect 0.3 MG/DL (0.0-1.0); Bilirubin,Total 0.6 MG/DL (0.2-1.0); Calcium 8.4 MG/DL (8.5-10.1); Osmolality,Calculated 273.6 MOS/KG (273-304)
[2019-04-25 08:14] LABS: Hypochromasia Slight; Lymphocytes 1 % (20-55); Platelet Estimate Normal; Polychromasia Slight; Segmented Neutrophils 97 % (50-85); Total Cells Counted 100
[2019-04-25] MEDS: DOCUSATE SODIUM 100 MG CAPSULE PO SCH ×2 (09:30→22:20)
[2019-04-25] MEDS: METOPROLOL TARTRATE 25 MG TABLET PO SCH ×2 (09:30→22:20)
[2019-04-25] MEDS: GABAPENTIN 300 MG CAPSULE PO SCH ×2 (09:30→22:20)
[2019-04-25] MEDS: QUEtiapine 25 MG TABLET PO SCH ×2 (09:31→22:21)
[2019-04-25] MEDS: LOSARTAN 25 MG TABLET PO SCH (09:31)
[2019-04-25] MEDS: ASPIRIN EC 325 MG TABLET PO SCH (09:32)
[2019-04-25] MEDS: MULTIVITAMIN (CENTRUM) TABLET PO SCH (09:32)
[2019-04-25] MEDS: PANTOPRAZOLE 40 MG TABLET PO SCH (09:32)
[2019-04-25] MEDS: TAMSULOSIN 0.4 MG CAPSULE PO SCH ×2 (09:32→22:20)
[2019-04-25] MEDS: FUROSEMIDE 40 MG/4 ML VIAL IV SCH (10:03)
[2019-04-25] MEDS: LEVOFLOXACIN INJ 500 MG in PREMIX 1 EACH IV SCH (10:04)
[2019-04-25] MEDS: FERROUS GLUCONATE 240 MG TABLET PO SCH (10:07)
[2019-04-25] MEDS: ONDANSETRON 4 MG/2 ML VIAL IV PRN (12:43)
[2019-04-25] MEDS: INSULIN LISPRO 100 UNIT/ML SUBCUT SCH ×4 (12:46→22:23)
[2019-04-25] MEDS: methylPREDNISolone SOD SUC 40 MG/1 ML VIAL IV SCH ×2 (13:19→22:20)
[2019-04-25] MEDS ORDERED: MAGNESIUM HYDROXIDE SUSP 30 ML UDCUP PO PRN (15:36)
[2019-04-25] MEDS: SODIUM CHLORIDE 0.9% 1,000 ML IV SCH ×3 (16:40→21:00)
[2019-04-25] MEDS: MAGNESIUM HYDROXIDE SUSP 30 ML UDCUP PO PRN (18:15)
[2019-04-25] MEDS: Umeclidinium-Vilanterol [Anoro Ellipta] INH SCH (22:26)
[2019-04-26] MEDS: ALBUTEROL/IPRATROPIUM 3 ML NEB RESP TX SCH ×5 (03:05→20:12)
[2019-04-26] MEDS: BENZONATATE 100 MG CAPSULE PO PRN ×3 (04:08→20:22)
[2019-04-26 05:42] LABS: Basophils % 0.2 % (0.0-0.8); Hemoglobin 12.2 GM/DL (14.0-18.0); Immature Granulocytes % 0.9 %; Immature Granulocytes Absolute 0.15 #; Lymphocytes # 0.2 10*3/uL (1.4-4.0); Mean Corpuscular HGB Conc 30.5 GM/DL (32-36); Mean Corpuscular Volume 92.6 FL (87-102); Mean Platelet Volume 10.9 FL (9.6-12.0); Monocytes % 3.2 % (1.7-12.7); NRBC # 0.02 10*3/uL; Neutrophils % 94.7 % (38.7-73.9); Platelet Count 168 T/CUMM (130-400); Red Blood Count 4.32 MC/CUMM (3.8-5.5); Red Cell Distribution Width 15.1 % (9.3-17.3); White Blood Count 16.5 T/CUMM (4-12)
[2019-04-26] MEDS: SODIUM CHLORIDE 0.9% 1,000 ML IV SCH ×3 (05:58→20:23)
[2019-04-26 06:12] LABS: Band Neutrophils 2 % (0-10); Lymphocytes 2 % (20-55); Segmented Neutrophils 94 % (50-85); Total Cells Counted 100
[2019-04-26 06:13] LABS: Anisocytosis 1+; Ovalocytes 1+; Platelet Estimate Adequate
[2019-04-26] MEDS: LEVOTHYROXINE 75 MCG TABLET PO SCH (06:14)
[2019-04-26 06:17] LABS: Albumin 2.8 G/DL (3.4-5.0); Bilirubin,Direct 0.24 MG/DL (0.0-0.20); Bilirubin,Indirect 0.7 MG/DL (0.0-1.0); Bilirubin,Total 0.9 MG/DL (0.2-1.0); Calcium 8.6 MG/DL (8.5-10.1); Osmolality,Calculated 275.4 MOS/KG (273-304); Total Protein 5.8 G/DL (6.4-8.3)
[2019-04-26] MEDS: DOCUSATE SODIUM 100 MG CAPSULE PO SCH ×2 (09:17→20:16)
[2019-04-26] MEDS: TAMSULOSIN 0.4 MG CAPSULE PO SCH ×2 (09:17→20:16)
[2019-04-26] MEDS: FERROUS GLUCONATE 240 MG TABLET PO SCH (09:17)
[2019-04-26] MEDS: GABAPENTIN 300 MG CAPSULE PO SCH ×2 (09:17→20:16)
[2019-04-26] MEDS: MULTIVITAMIN (CENTRUM) TABLET PO SCH (09:17)
[2019-04-26] MEDS: METOPROLOL TARTRATE 25 MG TABLET PO SCH ×2 (09:18→20:16)
[2019-04-26] MEDS: ASPIRIN EC 325 MG TABLET PO SCH (09:18)
[2019-04-26] MEDS: LOSARTAN 25 MG TABLET PO SCH (09:19)
[2019-04-26] MEDS: PANTOPRAZOLE 40 MG TABLET PO SCH (09:20)
[2019-04-26] MEDS: INSULIN LISPRO 100 UNIT/ML SUBCUT SCH ×4 (09:21→20:17)
[2019-04-26] MEDS: FUROSEMIDE 40 MG/4 ML VIAL IV SCH ×2 (10:58→17:49)
[2019-04-26] MEDS: LEVOFLOXACIN INJ 500 MG in PREMIX 1 EACH IV SCH (10:58)
[2019-04-26] MEDS: QUEtiapine 25 MG TABLET PO SCH ×2 (10:58→20:16)
[2019-04-26] MEDS: methylPREDNISolone SOD SUC 40 MG/1 ML VIAL IV SCH ×2 (13:03→21:55)
[2019-04-26] MEDS: Umeclidinium-Vilanterol [Anoro Ellipta] INH SCH (21:12)
[2019-04-27] MEDS: ALBUTEROL/IPRATROPIUM 3 ML NEB RESP TX SCH ×6 (00:44→19:27)
[2019-04-27] MEDS: SODIUM CHLORIDE 0.9% 1,000 ML IV SCH (01:03)
[2019-04-27 05:08] LABS: Basophils % 0.1 % (0.0-0.8); Hematocrit 40.2 VOL% (42.0-52.0); Hemoglobin 12.5 GM/DL (14.0-18.0); Immature Granulocytes % 0.6 %; Immature Granulocytes Absolute 0.08 #; Lymphocytes # 0.1 10*3/uL (1.4-4.0); Lymphocytes % 0.9 % (21.2-54.2); Mean Corpuscular HGB Conc 31.1 GM/DL (32-36); Mean Platelet Volume 10.9 FL (9.6-12.0); Monocytes % 3.1 % (1.7-12.7); Neutrophils % 95.3 % (38.7-73.9); Platelet Count 199 T/CUMM (130-400); Red Blood Count 4.37 MC/CUMM (3.8-5.5); White Blood Count 13.8 T/CUMM (4-12)
[2019-04-27 05:28] LABS: Albumin 2.8 G/DL (3.4-5.0); Bilirubin,Direct 0.28 MG/DL (0.0-0.20); Bilirubin,Indirect 0.4 MG/DL (0.0-1.0); Bilirubin,Total 0.7 MG/DL (0.2-1.0); Calcium 8.8 MG/DL (8.5-10.1); Osmolality,Calculated 272.5 MOS/KG (273-304); Total Protein 5.9 G/DL (6.4-8.3)
[2019-04-27 05:32] LABS: Hypochromasia Slight; Lymphocytes 1 % (20-55); Platelet Estimate Adequate; Segmented Neutrophils 97 % (50-85); Total Cells Counted 100
[2019-04-27] MEDS: LEVOTHYROXINE 75 MCG TABLET PO SCH (05:41)
[2019-04-27] MEDS: TAMSULOSIN 0.4 MG CAPSULE PO SCH ×2 (09:12→20:41)
[2019-04-27] MEDS: FERROUS GLUCONATE 240 MG TABLET PO SCH (09:12)
[2019-04-27] MEDS: MULTIVITAMIN (CENTRUM) TABLET PO SCH (09:12)
[2019-04-27] MEDS: QUEtiapine 25 MG TABLET PO SCH ×2 (09:12→20:35)
[2019-04-27] MEDS: DOCUSATE SODIUM 100 MG CAPSULE PO SCH ×2 (09:14→20:35)
[2019-04-27] MEDS: ASPIRIN EC 325 MG TABLET PO SCH (09:14)
[2019-04-27] MEDS: PANTOPRAZOLE 40 MG TABLET PO SCH (09:14)
[2019-04-27] MEDS: LOSARTAN 25 MG TABLET PO SCH (09:14)
[2019-04-27] MEDS: GABAPENTIN 300 MG CAPSULE PO SCH ×2 (09:15→20:35)
[2019-04-27] MEDS: METOPROLOL TARTRATE 25 MG TABLET PO SCH ×2 (09:15→20:36)
[2019-04-27] MEDS: FUROSEMIDE 40 MG/4 ML VIAL IV SCH ×2 (09:17→16:57)
[2019-04-27] MEDS: INSULIN LISPRO 100 UNIT/ML SUBCUT SCH ×4 (09:26→21:30)
[2019-04-27] MEDS: BENZONATATE 100 MG CAPSULE PO PRN ×2 (09:49→23:00)
[2019-04-27] MEDS: MAGNESIUM HYDROXIDE SUSP 30 ML UDCUP PO PRN (09:49)
[2019-04-27] MEDS: methylPREDNISolone SOD SUC 40 MG/1 ML VIAL IV SCH (09:50)
[2019-04-27] MEDS: Umeclidinium-Vilanterol [Anoro Ellipta] INH SCH (21:25)
[2019-04-28] MEDS: ALBUTEROL/IPRATROPIUM 3 ML NEB RESP TX SCH ×6 (00:27→20:13)
[2019-04-28] MEDS: LEVOTHYROXINE 75 MCG TABLET PO SCH (06:43)
[2019-04-28] MEDS: ONDANSETRON 4 MG/2 ML VIAL IV PRN (07:46)
[2019-04-28] MEDS: FUROSEMIDE 40 MG/4 ML VIAL IV SCH ×2 (07:50→16:29)
[2019-04-28] MEDS: INSULIN LISPRO 100 UNIT/ML SUBCUT SCH ×4 (09:27→21:53)
[2019-04-28] MEDS: GABAPENTIN 300 MG CAPSULE PO SCH ×2 (09:28→21:39)
[2019-04-28] MEDS: MULTIVITAMIN (CENTRUM) TABLET PO SCH (09:29)
[2019-04-28] MEDS: DOCUSATE SODIUM 100 MG CAPSULE PO SCH ×2 (09:29→21:39)
[2019-04-28] MEDS: TAMSULOSIN 0.4 MG CAPSULE PO SCH ×2 (09:29→21:40)
[2019-04-28] MEDS: BENZONATATE 100 MG CAPSULE PO PRN ×2 (09:29→19:47)
[2019-04-28] MEDS: FERROUS GLUCONATE 240 MG TABLET PO SCH (09:29)
[2019-04-28] MEDS: QUEtiapine 25 MG TABLET PO SCH ×2 (09:29→21:38)
[2019-04-28] MEDS: LOSARTAN 25 MG TABLET PO SCH (09:30)
[2019-04-28] MEDS: PANTOPRAZOLE 40 MG TABLET PO SCH (09:30)
[2019-04-28] MEDS: ASPIRIN EC 325 MG TABLET PO SCH (09:30)
[2019-04-28] MEDS: methylPREDNISolone SOD SUC 40 MG/1 ML VIAL IV SCH (09:30)
[2019-04-28] MEDS: METOPROLOL TARTRATE 25 MG TABLET PO SCH ×2 (09:30→21:51)
[2019-04-28 13:38] LABS: Albumin 2.7 G/DL (3.4-5.0); Bilirubin,Total 0.7 MG/DL (0.2-1.0); Calcium 8.3 MG/DL (8.5-10.1); Osmolality,Calculated 273.5 MOS/KG (273-304); Total Protein 6.2 G/DL (6.4-8.3)
[2019-04-28] MEDS ORDERED: TUBERCULIN SKIN TEST 0.1 ML SYRINGE INTRADERM ONE (15:23)
[2019-04-28] MEDS ORDERED: BISACODYL 10 MG SUPP RECTAL PRN (16:53)
[2019-04-28] MEDS ORDERED: BISACODYL 10 MG SUPP RECTAL ONE (16:53)
[2019-04-28] MEDS ORDERED: SODIUM POLYSTYRENE SULFATE 15 GM/60 ML BOTTLE PO ONE (17:01)
[2019-04-28] MEDS: SODIUM CHLORIDE 0.9% 1,000 ML IV SCH (18:45)
[2019-04-28] MEDS ORDERED: SODIUM POLYSTYRENE SULFATE 15 GM/60 ML BOTTLE PO STA (20:24)
[2019-04-28] MEDS: Umeclidinium-Vilanterol [Anoro Ellipta] INH SCH (21:55)
[2019-04-29] MEDS: ALBUTEROL/IPRATROPIUM 3 ML NEB RESP TX SCH ×5 (00:11→20:23)
[2019-04-29] MEDS: BENZONATATE 100 MG CAPSULE PO PRN ×3 (02:06→19:18)
[2019-04-29 06:00] LABS: Calcium 8.7 MG/DL (8.5-10.1); Osmolality,Calculated 278.7 MOS/KG (273-304)
[2019-04-29] MEDS: LEVOTHYROXINE 75 MCG TABLET PO SCH (06:17)
[2019-04-29] MEDS: MULTIVITAMIN (CENTRUM) TABLET PO SCH (09:26)
[2019-04-29] MEDS: MAGNESIUM HYDROXIDE SUSP 30 ML UDCUP PO PRN (09:26)
[2019-04-29] MEDS: ASPIRIN EC 325 MG TABLET PO SCH (09:26)
[2019-04-29] MEDS: TAMSULOSIN 0.4 MG CAPSULE PO SCH ×2 (09:26→21:48)
[2019-04-29 09:27] LABS: Albumin 2.9 G/DL (3.4-5.0); Bilirubin,Direct 0.24 MG/DL (0.0-0.20); Bilirubin,Indirect 0.3 MG/DL (0.0-1.0); Bilirubin,Total 0.5 MG/DL (0.2-1.0); Total Protein 5.6 G/DL (6.4-8.3)
[2019-04-29] MEDS: METOPROLOL TARTRATE 25 MG TABLET PO SCH ×2 (09:27→21:48)
[2019-04-29] MEDS: QUEtiapine 25 MG TABLET PO SCH ×2 (09:27→21:37)
[2019-04-29] MEDS: GABAPENTIN 300 MG CAPSULE PO SCH ×2 (09:27→21:36)
[2019-04-29] MEDS: LOSARTAN 25 MG TABLET PO SCH (09:28)
[2019-04-29] MEDS: PANTOPRAZOLE 40 MG TABLET PO SCH (09:28)
[2019-04-29] MEDS: DOCUSATE SODIUM 100 MG CAPSULE PO SCH ×2 (09:28→21:36)
[2019-04-29] MEDS: methylPREDNISolone SOD SUC 40 MG/1 ML VIAL IV SCH (09:31)
[2019-04-29] MEDS: FUROSEMIDE 40 MG/4 ML VIAL IV SCH ×2 (10:01→15:24)
[2019-04-29] MEDS: INSULIN LISPRO 100 UNIT/ML SUBCUT SCH ×4 (10:02→21:39)
[2019-04-29] MEDS: FERROUS GLUCONATE 240 MG TABLET PO SCH (10:22)
[2019-04-29] MEDS: ONDANSETRON 4 MG/2 ML VIAL IV PRN (15:37)
[2019-04-29] MEDS: Umeclidinium-Vilanterol [Anoro Ellipta] INH SCH (21:43)
[2019-04-30] MEDS: ALBUTEROL/IPRATROPIUM 3 ML NEB RESP TX SCH ×4 (00:11→11:15)
[2019-04-30 05:42] LABS: Basophils % 0.1 % (0.0-0.8); Eosinophils # 0.1 10*3/uL (0.0-0.87); Hematocrit 38.6 VOL% (42.0-52.0); Hemoglobin 11.7 GM/DL (14.0-18.0); Immature Granulocytes % 0.7 %; Immature Granulocytes Absolute 0.08 #; Lymphocytes # 0.7 10*3/uL (1.4-4.0); Mean Corpuscular HGB Conc 30.3 GM/DL (32-36); Mean Corpuscular Volume 94.1 FL (87-102); Mean Platelet Volume 10.6 FL (9.6-12.0); Monocytes % 6.7 % (1.7-12.7); Neutrophils % 85.5 % (38.7-73.9); Platelet Count 121 T/CUMM (130-400); Red Cell Distribution Width 15.8 % (9.3-17.3); White Blood Count 11.1 T/CUMM (4-12)
[2019-04-30] MEDS: LEVOTHYROXINE 75 MCG TABLET PO SCH (05:52)
[2019-04-30 05:55] LABS: Calcium 8.3 MG/DL (8.5-10.1); Osmolality,Calculated 285.1 MOS/KG (273-304)
[2019-04-30] MEDS ORDERED: EZETIMIBE 10 MG TABLET PO SCH (09:00)
[2019-04-30 09:43] LABS: Albumin 2.7 G/DL (3.4-5.0); Bilirubin,Direct 0.23 MG/DL (0.0-0.20); Bilirubin,Indirect 0.2 MG/DL (0.0-1.0); Bilirubin,Total 0.4 MG/DL (0.2-1.0); Total Protein 5.3 G/DL (6.4-8.3)
[2019-04-30] MEDS: QUEtiapine 25 MG TABLET PO SCH (09:57)
[2019-04-30] MEDS: ASPIRIN EC 325 MG TABLET PO SCH (09:57)
[2019-04-30] MEDS: FERROUS GLUCONATE 240 MG TABLET PO SCH (09:57)
[2019-04-30] MEDS: GABAPENTIN 300 MG CAPSULE PO SCH (09:57)
[2019-04-30] MEDS: METOPROLOL TARTRATE 25 MG TABLET PO SCH (09:58)
[2019-04-30] MEDS: DOCUSATE SODIUM 100 MG CAPSULE PO SCH (09:58)
[2019-04-30] MEDS: MULTIVITAMIN (CENTRUM) TABLET PO SCH (09:58)
[2019-04-30] MEDS: LOSARTAN 25 MG TABLET PO SCH (09:58)
[2019-04-30] MEDS: FUROSEMIDE 40 MG/4 ML VIAL IV SCH (09:58)
[2019-04-30] MEDS: ACETAMINOPHEN 325 MG TABLET PO PRN (09:58)
[2019-04-30] MEDS: methylPREDNISolone SOD SUC 40 MG/1 ML VIAL IV SCH (09:59)
[2019-04-30] MEDS: MAGNESIUM HYDROXIDE SUSP 30 ML UDCUP PO PRN (09:59)
[2019-04-30] MEDS: PANTOPRAZOLE 40 MG TABLET PO SCH (09:59)
[2019-04-30] MEDS: TAMSULOSIN 0.4 MG CAPSULE PO SCH (09:59)
[2019-04-30] MEDS: INSULIN LISPRO 100 UNIT/ML SUBCUT SCH ×2 (10:08→12:55)
[2019-04-30] MEDS ORDERED: SODIUM PHOSPHATE ENEMA 133 ML BOTTLE RECTAL ONE (10:28)
[2019-04-30 12:40] VITALS: BP 94/65
== END 2019-04-30 15:43 | DRG 640 ==
LOC: EDBD → EDUNIT# → N.ED 10:37 → N.EDINP 14:55 → N.2E 15:19 → N.ICU 04-21 14:57 → N.TELES 04-22 13:59
PROVIDERS: ADMIT Family Medicine; ATTEND Family Medicine

== ENCOUNTER 2019-05-07 11:05 | Inpatient (IN) ==
[2019-05-07] MEDS ORDERED: FUROSEMIDE 100 MG/10 ML VIAL IV STA (11:45)
[2019-05-07 13:07] LABS: Basophils # 0.1 10*3/uL (0.0-0.2); Basophils % 0.3 % (0.0-0.8); Eosinophils # 0.2 10*3/uL (0.0-0.87); Eosinophils % 1.2 % (0.00-10.9); Hematocrit 39.5 VOL% (42.0-52.0); Hemoglobin 11.9 GM/DL (14.0-18.0); Immature Granulocytes % 1.1 %; Immature Granulocytes Absolute 0.16 #; Lymphocytes # 0.9 10*3/uL (1.4-4.0); Lymphocytes % 5.9 % (21.2-54.2); Mean Corpuscular HGB Conc 30.1 GM/DL (32-36); Mean Corpuscular Volume 96.1 FL (87-102); Mean Platelet Volume 11.8 FL (9.6-12.0); Monocytes % 4.8 % (1.7-12.7); Neutrophils % 86.7 % (38.7-73.9); Platelet Count 179 T/CUMM (130-400); Red Blood Count 4.11 MC/CUMM (3.8-5.5); Red Cell Distribution Width 15.8 % (9.3-17.3); White Blood Count 14.5 T/CUMM (4-12)
[2019-05-07 13:16] LABS: Apearance,Urine CLEAR (Clear); Bacteria,Urine Occasional /HPF (Few); Bilirubin,Urine Negative (Negative); Blood, Urine Negative (Negative); Glucose,Urine (UA) Negative (Negative); Hyaline Casts,Urine 13 /LPF (0-3); Ketones,Urine Negative (Negative); Mucus,Urine Occasional /LPF (Occasional); Nitrite,Urine Negative (Negative); Protein,Urine Negative; RBC,Urine <1 /HPF (0-4); Urine Color Yellow (Yellow); Urine Specific Gravity 1.017 (1.001-1.035); Urine Urobilinogen < 2.0 EU/DL (0.2-1.0); WBC,Urine <1 /HPF (0-6)
[2019-05-07 13:47] LABS: Albumin 3.1 G/DL (3.4-5.0); Bilirubin,Total 0.6 MG/DL (0.2-1.0); Calcium 8.8 MG/DL (8.5-10.1); Osmolality,Calculated 275.5 MOS/KG (273-304); Total Protein 6.1 G/DL (6.4-8.3)
[2019-05-07] MEDS ORDERED: INFLUENZA VIRUS VACCINE 0.5 ML SYRINGE IM ONE (14:17)
[2019-05-07] MEDS ORDERED: ALBUTEROL 2.5 MG/3 ML NEB RESP TX PRN (15:00)
[2019-05-07] MEDS: Umeclidinium-Vilanterol [Anoro Ellipta] 1 inh INH SCH (16:35)
[2019-05-07] MEDS: INSULIN LISPRO 100 UNIT/ML SUBCUT SCH (16:36)
[2019-05-07] MEDS: SPIRONOLACTONE 25 MG TABLET PO SCH ×2 (16:37→21:10)
[2019-05-07] MEDS ORDERED: MIRTAZAPINE 15 MG TABLET PO PRN (16:41)
[2019-05-07] MEDS ORDERED: ALBUTEROL/IPRATROPIUM 3 ML NEB RESP TX PRN (16:41)
[2019-05-07] MEDS: FUROSEMIDE 40 MG/4 ML VIAL IV SCH (16:58)
[2019-05-07] MEDS: METOPROLOL TARTRATE 25 MG TABLET PO SCH (21:10)
[2019-05-07] MEDS: PANTOPRAZOLE 40 MG TABLET PO SCH (21:10)
[2019-05-07] MEDS: QUEtiapine 25 MG TABLET PO SCH (21:10)
[2019-05-07] MEDS: GABAPENTIN 300 MG CAPSULE PO SCH (21:10)
[2019-05-07] MEDS: TAMSULOSIN 0.4 MG CAPSULE PO SCH (21:10)
[2019-05-08] MEDS: INSULIN LISPRO 100 UNIT/ML SUBCUT SCH ×4 (00:25→21:31)
[2019-05-08 05:09] LABS: Basophils % 0.3 % (0.0-0.8); Eosinophils # 0.2 10*3/uL (0.0-0.87); Eosinophils % 1.9 % (0.00-10.9); Hematocrit 37.8 VOL% (42.0-52.0); Hemoglobin 11.5 GM/DL (14.0-18.0); Immature Granulocytes % 0.8 %; Immature Granulocytes Absolute 0.09 #; Lymphocytes # 1.3 10*3/uL (1.4-4.0); Lymphocytes % 11.3 % (21.2-54.2); Mean Corpuscular HGB Conc 30.4 GM/DL (32-36); Mean Corpuscular Volume 95.5 FL (87-102); Mean Platelet Volume 11.4 FL (9.6-12.0); Monocytes % 7.2 % (1.7-12.7); Neutrophils % 78.5 % (38.7-73.9); Platelet Count 157 T/CUMM (130-400); Red Blood Count 3.96 MC/CUMM (3.8-5.5); Red Cell Distribution Width 15.9 % (9.3-17.3); White Blood Count 11.8 T/CUMM (4-12)
[2019-05-08 05:30] LABS: Albumin 2.9 G/DL (3.4-5.0); Bilirubin,Direct 0.22 MG/DL (0.0-0.20); Bilirubin,Indirect 0.3 MG/DL (0.0-1.0); Bilirubin,Total 0.5 MG/DL (0.2-1.0); Calcium 8.4 MG/DL (8.5-10.1); Osmolality,Calculated 277.4 MOS/KG (273-304); Total Protein 5.9 G/DL (6.4-8.3)
[2019-05-08] MEDS ORDERED: FUROSEMIDE 40 MG/4 ML VIAL IV ONE (06:06)
[2019-05-08] MEDS ORDERED: predniSONE 20 MG TABLET PO SCH (09:00)
[2019-05-08] MEDS: FUROSEMIDE 40 MG/4 ML VIAL IV SCH ×2 (09:45→17:26)
[2019-05-08] MEDS: ASPIRIN EC 325 MG TABLET PO SCH (09:45)
[2019-05-08] MEDS: SPIRONOLACTONE 25 MG TABLET PO SCH (09:45)
[2019-05-08] MEDS: FERROUS GLUCONATE 240 MG TABLET PO SCH (09:45)
[2019-05-08] MEDS: TAMSULOSIN 0.4 MG CAPSULE PO SCH ×2 (09:45→21:31)
[2019-05-08] MEDS: LEVOTHYROXINE 75 MCG TABLET PO SCH (09:45)
[2019-05-08] MEDS: LOSARTAN 25 MG TABLET PO SCH (09:45)
[2019-05-08] MEDS: METOPROLOL TARTRATE 25 MG TABLET PO SCH ×2 (09:46→21:31)
[2019-05-08] MEDS: GABAPENTIN 300 MG CAPSULE PO SCH ×2 (09:46→21:30)
[2019-05-08] MEDS: QUEtiapine 25 MG TABLET PO SCH ×2 (09:46→21:30)
[2019-05-08] MEDS: PANTOPRAZOLE 40 MG TABLET PO SCH ×2 (09:46→21:30)
[2019-05-08] MEDS: EZETIMIBE 10 MG TABLET PO SCH (09:46)
[2019-05-08] MEDS ORDERED: ALBUMIN 25% 25 GM in PREMIX 1 EACH IV ONE (11:54)
[2019-05-08] MEDS: methylPREDNISolone SOD SUC 40 MG/1 ML VIAL IV SCH (17:24)
[2019-05-08] MEDS: Umeclidinium-Vilanterol [Anoro Ellipta] 1 inh INH SCH (17:26)
[2019-05-08] MEDS: metOLazone 5 MG TABLET PO SCH (17:26)
[2019-05-08] MEDS: DILTIAZEM 30 MG TABLET PO SCH ×2 (18:38→21:30)
[2019-05-08] MEDS: BENZONATATE 100 MG CAPSULE PO PRN (18:38)
[2019-05-08 18:45] LABS: HIV Antigen/Antibody Result Nonreactive (Nonreactive); Hepatitis B Surface Ag Quant 0.49 Index; Hepatitis B Surface Ag Result Negative (Negative); Hepatitis C Virus Ab Quant 0.03 Index; Hepatitis C Virus Ab Result Negative (Negative)
[2019-05-09] MEDS: methylPREDNISolone SOD SUC 40 MG/1 ML VIAL IV SCH ×2 (01:31→18:44)
[2019-05-09] MEDS: BENZONATATE 100 MG CAPSULE PO PRN (02:04)
[2019-05-09 03:44] LABS: Basophils % 0.1 % (0.0-0.8); Hematocrit 36.8 VOL% (42.0-52.0); Immature Granulocytes % 0.7 %; Immature Granulocytes Absolute 0.08 #; Lymphocytes # 0.3 10*3/uL (1.4-4.0); Lymphocytes % 2.9 % (21.2-54.2); Mean Corpuscular HGB Conc 29.9 GM/DL (32-36); Mean Corpuscular Volume 93.6 FL (87-102); Mean Platelet Volume 11.7 FL (9.6-12.0); Neutrophils % 93.3 % (38.7-73.9); Platelet Count 149 T/CUMM (130-400); Red Blood Count 3.93 MC/CUMM (3.8-5.5); Red Cell Distribution Width 15.8 % (9.3-17.3); White Blood Count 10.8 T/CUMM (4-12)
[2019-05-09 04:14] LABS: Calcium 8.5 MG/DL (8.5-10.1); Osmolality,Calculated 274.7 MOS/KG (273-304)
[2019-05-09 04:17] LABS: Albumin 3.1 G/DL (3.4-5.0); Bilirubin,Direct 0.3 MG/DL (0.0-0.20); Bilirubin,Indirect 0.9 MG/DL (0.0-1.0); Bilirubin,Total 1.2 MG/DL (0.2-1.0); Total Protein 5.8 G/DL (6.4-8.3)
[2019-05-09 04:20] LABS: Band Neutrophils 1 % (0-10); Lymphocytes 3 % (20-55); Segmented Neutrophils 95 % (50-85); Total Cells Counted 100
[2019-05-09 04:21] LABS: Anisocytosis 1+; Hypochromasia 1+; Ovalocytes 1+
[2019-05-09 04:22] LABS: Platelet Estimate Normal
[2019-05-09] MEDS: LEVOTHYROXINE 75 MCG TABLET PO SCH (06:32)
[2019-05-09] MEDS: INSULIN LISPRO 100 UNIT/ML SUBCUT SCH ×3 (09:33→21:25)
[2019-05-09] MEDS: FUROSEMIDE 40 MG/4 ML VIAL IV SCH ×2 (09:33→18:44)
[2019-05-09] MEDS: metOLazone 5 MG TABLET PO SCH (09:33)
[2019-05-09] MEDS: ASPIRIN EC 325 MG TABLET PO SCH (09:34)
[2019-05-09] MEDS: METOPROLOL TARTRATE 25 MG TABLET PO SCH ×2 (09:34→21:27)
[2019-05-09] MEDS: FERROUS GLUCONATE 240 MG TABLET PO SCH (09:34)
[2019-05-09] MEDS: EZETIMIBE 10 MG TABLET PO SCH (09:34)
[2019-05-09] MEDS: DILTIAZEM 30 MG TABLET PO SCH ×3 (09:34→21:27)
[2019-05-09] MEDS: GABAPENTIN 300 MG CAPSULE PO SCH ×2 (09:34→21:26)
[2019-05-09] MEDS: LOSARTAN 25 MG TABLET PO SCH (09:34)
[2019-05-09] MEDS: QUEtiapine 25 MG TABLET PO SCH ×2 (09:34→21:26)
[2019-05-09] MEDS: PANTOPRAZOLE 40 MG TABLET PO SCH ×2 (09:35→21:26)
[2019-05-09] MEDS: TAMSULOSIN 0.4 MG CAPSULE PO SCH ×2 (09:35→21:25)
[2019-05-09] MEDS: ALBUTEROL/IPRATROPIUM 3 ML NEB RESP TX SCH ×2 (13:13→20:30)
[2019-05-09] MEDS: Umeclidinium-Vilanterol [Anoro Ellipta] 1 inh INH SCH (18:23)
[2019-05-10] MEDS: ALBUTEROL/IPRATROPIUM 3 ML NEB RESP TX SCH ×4 (00:30→19:03)
[2019-05-10] MEDS: methylPREDNISolone SOD SUC 40 MG/1 ML VIAL IV SCH ×2 (02:47→13:23)
[2019-05-10 04:31] LABS: Basophils % 0.2 % (0.0-0.8); Hematocrit 36.5 VOL% (42.0-52.0); Hemoglobin 11.4 GM/DL (14.0-18.0); Immature Granulocytes % 0.9 %; Immature Granulocytes Absolute 0.13 #; Lymphocytes # 0.3 10*3/uL (1.4-4.0); Lymphocytes % 2.3 % (21.2-54.2); Mean Corpuscular HGB Conc 31.2 GM/DL (32-36); Mean Corpuscular Volume 92.6 FL (87-102); Mean Platelet Volume 11.8 FL (9.6-12.0); Neutrophils % 93.6 % (38.7-73.9); Platelet Count 146 T/CUMM (130-400); Red Blood Count 3.94 MC/CUMM (3.8-5.5); Red Cell Distribution Width 15.9 % (9.3-17.3); White Blood Count 13.9 T/CUMM (4-12)
[2019-05-10 04:56] LABS: Osmolality,Calculated 276.7 MOS/KG (273-304)
[2019-05-10 05:00] LABS: Albumin 3.4 G/DL (3.4-5.0); Bilirubin,Direct 0.28 MG/DL (0.0-0.20); Bilirubin,Indirect 0.4 MG/DL (0.0-1.0); Bilirubin,Total 0.7 MG/DL (0.2-1.0); Total Protein 6.1 G/DL (6.4-8.3)
[2019-05-10 05:50] LABS: Band Neutrophils 5 % (0-10); Lymphocytes 2 % (20-55); Platelet Estimate Adequate; Segmented Neutrophils 89 % (50-85); Total Cells Counted 100
[2019-05-10 05:51] LABS: Anisocytosis 1+; Macrocytosis 1+
[2019-05-10] MEDS: LEVOTHYROXINE 75 MCG TABLET PO SCH (06:19)
[2019-05-10] MEDS: EZETIMIBE 10 MG TABLET PO SCH (10:27)
[2019-05-10] MEDS: FERROUS GLUCONATE 240 MG TABLET PO SCH (10:28)
[2019-05-10] MEDS: DILTIAZEM 30 MG TABLET PO SCH ×3 (10:28→17:58)
[2019-05-10] MEDS: INSULIN LISPRO 100 UNIT/ML SUBCUT SCH ×4 (10:28→20:41)
[2019-05-10] MEDS: TAMSULOSIN 0.4 MG CAPSULE PO SCH ×2 (10:28→20:42)
[2019-05-10] MEDS: GABAPENTIN 300 MG CAPSULE PO SCH ×2 (10:28→20:42)
[2019-05-10] MEDS: QUEtiapine 25 MG TABLET PO SCH ×2 (10:28→20:42)
[2019-05-10] MEDS: ASPIRIN EC 325 MG TABLET PO SCH (10:28)
[2019-05-10] MEDS: metOLazone 5 MG TABLET PO SCH (10:28)
[2019-05-10] MEDS: LOSARTAN 25 MG TABLET PO SCH (10:29)
[2019-05-10] MEDS: METOPROLOL TARTRATE 25 MG TABLET PO SCH ×2 (10:29→20:44)
[2019-05-10] MEDS: FUROSEMIDE 40 MG/4 ML VIAL IV SCH ×3 (10:29→17:58)
[2019-05-10] MEDS: PANTOPRAZOLE 40 MG TABLET PO SCH ×2 (10:29→20:46)
[2019-05-10] MEDS: Umeclidinium-Vilanterol [Anoro Ellipta] 1 inh INH SCH (13:23)
[2019-05-10] MEDS: DILTIAZEM 60 MG TABLET PO SCH ×2 (17:58→20:42)
[2019-05-10] MEDS: PROMETHAZINE 25 MG/1 ML VIAL IM PRN (22:16)
[2019-05-10] MEDS: BENZONATATE 100 MG CAPSULE PO PRN (23:22)
[2019-05-11] MEDS: ALBUTEROL/IPRATROPIUM 3 ML NEB RESP TX SCH ×4 (00:29→20:07)
[2019-05-11] MEDS: methylPREDNISolone SOD SUC 40 MG/1 ML VIAL IV SCH ×2 (01:02→12:48)
[2019-05-11 04:57] LABS: Basophils % 0.2 % (0.0-0.8); Hematocrit 37.1 VOL% (42.0-52.0); Hemoglobin 11.4 GM/DL (14.0-18.0); Immature Granulocytes Absolute 0.17 #; Lymphocytes # 0.3 10*3/uL (1.4-4.0); Lymphocytes % 1.6 % (21.2-54.2); Mean Corpuscular HGB Conc 30.7 GM/DL (32-36); Mean Corpuscular Volume 93.5 FL (87-102); Mean Platelet Volume 11.8 FL (9.6-12.0); Monocytes % 3.6 % (1.7-12.7); Neutrophils % 93.6 % (38.7-73.9); Platelet Count 169 T/CUMM (130-400); Red Blood Count 3.97 MC/CUMM (3.8-5.5); Red Cell Distribution Width 15.9 % (9.3-17.3); White Blood Count 16.7 T/CUMM (4-12)
[2019-05-11 05:16] LABS: Calcium 9.1 MG/DL (8.5-10.1); Osmolality,Calculated 273.9 MOS/KG (273-304)
[2019-05-11 05:20] LABS: Segmented Neutrophils 96 % (50-85); Total Cells Counted 100
[2019-05-11 05:21] LABS: Albumin 3.2 G/DL (3.4-5.0); Bilirubin,Direct 0.26 MG/DL (0.0-0.20); Bilirubin,Indirect 0.5 MG/DL (0.0-1.0); Bilirubin,Total 0.8 MG/DL (0.2-1.0); Hypochromasia 1+; Macrocytosis Slight; Platelet Estimate Adequate; Total Protein 5.9 G/DL (6.4-8.3)
[2019-05-11] MEDS: LEVOTHYROXINE 75 MCG TABLET PO SCH (06:09)
[2019-05-11] MEDS: FUROSEMIDE 40 MG/4 ML VIAL IV SCH ×2 (09:36→16:04)
[2019-05-11] MEDS: INSULIN LISPRO 100 UNIT/ML SUBCUT SCH ×3 (09:36→22:07)
[2019-05-11] MEDS: LOSARTAN 25 MG TABLET PO SCH (09:37)
[2019-05-11] MEDS: ASPIRIN EC 325 MG TABLET PO SCH (09:37)
[2019-05-11] MEDS: PANTOPRAZOLE 40 MG TABLET PO SCH ×2 (09:37→22:09)
[2019-05-11] MEDS: GABAPENTIN 300 MG CAPSULE PO SCH ×2 (09:37→22:08)
[2019-05-11] MEDS: EZETIMIBE 10 MG TABLET PO SCH (09:37)
[2019-05-11] MEDS: METOPROLOL TARTRATE 25 MG TABLET PO SCH ×2 (09:37→22:08)
[2019-05-11] MEDS: TAMSULOSIN 0.4 MG CAPSULE PO SCH ×2 (09:38→22:06)
[2019-05-11] MEDS: metOLazone 5 MG TABLET PO SCH (09:38)
[2019-05-11] MEDS: FERROUS GLUCONATE 240 MG TABLET PO SCH (09:38)
[2019-05-11] MEDS: DILTIAZEM 60 MG TABLET PO SCH ×3 (09:39→22:06)
[2019-05-11] MEDS: QUEtiapine 25 MG TABLET PO SCH ×2 (09:39→22:09)
[2019-05-11] MEDS: PROMETHAZINE 25 MG/1 ML VIAL IM PRN (12:53)
[2019-05-11] MEDS: Umeclidinium-Vilanterol [Anoro Ellipta] 1 inh INH SCH (13:39)
[2019-05-11] MEDS ORDERED: FUROSEMIDE 20 MG/2 ML VIAL IM ONE (15:19)
[2019-05-11] MEDS ORDERED: FUROSEMIDE 20 MG/2 ML VIAL IV ONE (15:30)
[2019-05-11] MEDS: ONDANSETRON 4 MG/2 ML VIAL IV PRN (20:20)
[2019-05-11] MEDS: BENZONATATE 100 MG CAPSULE PO PRN (22:41)
[2019-05-12] MEDS: ALBUTEROL/IPRATROPIUM 3 ML NEB RESP TX SCH ×4 (00:42→19:58)
[2019-05-12] MEDS: methylPREDNISolone SOD SUC 40 MG/1 ML VIAL IV SCH ×2 (01:39→12:56)
[2019-05-12 04:45] LABS: Basophils % 0.1 % (0.0-0.8); Hematocrit 37.4 VOL% (42.0-52.0); Hemoglobin 11.5 GM/DL (14.0-18.0); Immature Granulocytes % 0.8 %; Immature Granulocytes Absolute 0.13 #; Lymphocytes # 0.3 10*3/uL (1.4-4.0); Mean Corpuscular HGB Conc 30.7 GM/DL (32-36); Mean Corpuscular Volume 92.3 FL (87-102); Mean Platelet Volume 11.6 FL (9.6-12.0); Monocytes % 4.8 % (1.7-12.7); Neutrophils % 92.3 % (38.7-73.9); Platelet Count 165 T/CUMM (130-400); Red Blood Count 4.05 MC/CUMM (3.8-5.5); Red Cell Distribution Width 15.8 % (9.3-17.3)
[2019-05-12 05:05] LABS: Hypochromasia 1+; Lymphocytes 2 % (20-55); Platelet Estimate Adequate; Segmented Neutrophils 93 % (50-85); Total Cells Counted 100
[2019-05-12 05:06] LABS: Macrocytosis Slight
[2019-05-12 05:19] LABS: Osmolality,Calculated 268.5 MOS/KG (273-304)
[2019-05-12] MEDS: LEVOTHYROXINE 75 MCG TABLET PO SCH (06:44)
[2019-05-12 07:46] LABS: INR 1.1; PT Patient Result 11.5 SECS (9.6-12.2)
[2019-05-12] MEDS: LOSARTAN 25 MG TABLET PO SCH (09:25)
[2019-05-12] MEDS: METOPROLOL TARTRATE 25 MG TABLET PO SCH (09:25)
[2019-05-12] MEDS: EZETIMIBE 10 MG TABLET PO SCH (09:25)
[2019-05-12] MEDS: GABAPENTIN 300 MG CAPSULE PO SCH (09:25)
[2019-05-12] MEDS: TAMSULOSIN 0.4 MG CAPSULE PO SCH ×2 (09:25→22:46)
[2019-05-12] MEDS: PANTOPRAZOLE 40 MG TABLET PO SCH ×2 (09:25→22:46)
[2019-05-12] MEDS: ASPIRIN EC 325 MG TABLET PO SCH (09:26)
[2019-05-12] MEDS: FERROUS GLUCONATE 240 MG TABLET PO SCH (09:26)
[2019-05-12] MEDS: metOLazone 5 MG TABLET PO SCH (09:26)
[2019-05-12] MEDS: DILTIAZEM 60 MG TABLET PO SCH ×3 (09:26→22:45)
[2019-05-12] MEDS: FUROSEMIDE 40 MG/4 ML VIAL IV SCH (09:27)
[2019-05-12] MEDS: INSULIN LISPRO 100 UNIT/ML SUBCUT SCH ×3 (09:27→22:45)
[2019-05-12] MEDS: QUEtiapine 25 MG TABLET PO SCH ×2 (09:28→22:46)
[2019-05-12] MEDS: BENZONATATE 100 MG CAPSULE PO PRN (09:40)
[2019-05-12] MEDS ORDERED: SPIRONOLACTONE 25 MG TABLET PO SCH (11:56)
[2019-05-12] MEDS: Umeclidinium-Vilanterol [Anoro Ellipta] 1 inh INH SCH (12:57)
[2019-05-12] MEDS: FUROSEMIDE 100 MG/10 ML VIAL IV SCH (17:03)
[2019-05-12] MEDS ORDERED: METOPROLOL TARTRATE 25 MG TABLET PO SCH (21:00)
[2019-05-12] MEDS: METOPROLOL TARTRATE 50 MG TABLET PO SCH (22:46)
[2019-05-12] MEDS: GABAPENTIN 400 MG CAPSULE PO SCH (22:46)
[2019-05-13] MEDS: methylPREDNISolone SOD SUC 40 MG/1 ML VIAL IV SCH ×2 (01:44→14:12)
[2019-05-13] MEDS: ALBUTEROL/IPRATROPIUM 3 ML NEB RESP TX SCH ×3 (02:37→13:00)
[2019-05-13 05:02] LABS: Basophils % 0.1 % (0.0-0.8); Hematocrit 37.2 VOL% (42.0-52.0); Hemoglobin 11.6 GM/DL (14.0-18.0); Immature Granulocytes % 0.6 %; Immature Granulocytes Absolute 0.07 #; Lymphocytes # 0.3 10*3/uL (1.4-4.0); Lymphocytes % 2.4 % (21.2-54.2); Mean Corpuscular HGB Conc 31.2 GM/DL (32-36); Mean Corpuscular Volume 92.1 FL (87-102); Mean Platelet Volume 12.4 FL (9.6-12.0); Monocytes % 5.3 % (1.7-12.7); Neutrophils % 91.6 % (38.7-73.9); Platelet Count 154 T/CUMM (130-400); Red Blood Count 4.04 MC/CUMM (3.8-5.5); Red Cell Distribution Width 15.5 % (9.3-17.3); White Blood Count 12.3 T/CUMM (4-12)
[2019-05-13 05:19] LABS: Calcium 8.7 MG/DL (8.5-10.1); Osmolality,Calculated 272.4 MOS/KG (273-304)
[2019-05-13 05:27] LABS: Hypochromasia 1+; Lymphocytes 2 % (20-55); Segmented Neutrophils 95 % (50-85); Total Cells Counted 100
[2019-05-13 05:28] LABS: Microcytosis Slight; Ovalocytes Slight
[2019-05-13] MEDS ORDERED: GLYCOPYRROLATE 0.4 MG/2 ML VIAL IM ONE (07:30)
[2019-05-13] MEDS ORDERED: LIDOCAINE 1% 20 ML VIAL MISC INJ ONE (07:30)
[2019-05-13] MEDS ORDERED: MEPERIDINE 50 MG/1 ML VIAL IM ONE (07:30)
[2019-05-13] MEDS ORDERED: MIDAZOLAM 2 MG/2 ML VIAL IV ONE (07:30)
[2019-05-13] MEDS ORDERED: PROMETHAZINE 25 MG/1 ML VIAL IM ONE (07:30)
[2019-05-13] MEDS ORDERED: LIDOCAINE 2% 20 ML VIAL RESP TX ONE (07:30)
[2019-05-13] MEDS ORDERED: LIDOCAINE 2% VISCOUS 100 ML BOTTLE SWISH/SPIT ONE (07:30)
[2019-05-13] MEDS ORDERED: MIDAZOLAM 2 MG/2 ML VIAL ONE (10:00)
[2019-05-13] MEDS ORDERED: flumazeniL 0.5 MG/5 ML VIAL IV ONE (10:06)
[2019-05-13] MEDS ORDERED: NALOXONE 0.4 MG/ML VIAL ONE (10:37)
[2019-05-13] MEDS ORDERED: NALOXONE 0.4 MG/ML VIAL IV ONE (10:40)
[2019-05-13] MEDS: LEVOTHYROXINE 75 MCG TABLET PO SCH (12:24)
[2019-05-13] MEDS: FUROSEMIDE 100 MG/10 ML VIAL IV SCH ×2 (12:24→16:58)
[2019-05-13] MEDS: METOPROLOL TARTRATE 50 MG TABLET PO SCH (12:25)
[2019-05-13] MEDS: TAMSULOSIN 0.4 MG CAPSULE PO SCH ×2 (12:25→20:41)
[2019-05-13] MEDS: DILTIAZEM 60 MG TABLET PO SCH ×3 (12:25→20:42)
[2019-05-13] MEDS: PANTOPRAZOLE 40 MG TABLET PO SCH ×2 (12:25→20:41)
[2019-05-13] MEDS: FERROUS GLUCONATE 240 MG TABLET PO SCH (12:25)
[2019-05-13] MEDS: INSULIN LISPRO 100 UNIT/ML SUBCUT SCH ×3 (12:25→20:41)
[2019-05-13] MEDS: ASPIRIN EC 325 MG TABLET PO SCH (12:25)
[2019-05-13] MEDS: QUEtiapine 25 MG TABLET PO SCH ×2 (12:25→20:41)
[2019-05-13] MEDS: GABAPENTIN 400 MG CAPSULE PO SCH ×2 (12:25→20:42)
[2019-05-13] MEDS: EZETIMIBE 10 MG TABLET PO SCH (12:26)
[2019-05-13] MEDS: metOLazone 5 MG TABLET PO SCH (12:26)
[2019-05-13] MEDS ORDERED: FUROSEMIDE 40 MG/4 ML VIAL IV ONE (13:46)
[2019-05-13] MEDS: Umeclidinium-Vilanterol [Anoro Ellipta] 1 inh INH SCH (14:12)
[2019-05-13 15:21] LABS: Allen Test Positive
[2019-05-13 15:22] LABS: ABG Base Excess 10.9 MMOL/L (-2.5-2.5); ABG HCO3 34.6 MMOL/L (20-26); ABG Oxygen Saturation 92.7 % (95-100); ABG PCO2 60.3 MM HG (35-48); ABG PH 7.409 (7.35-7.45); ABG PO2 65.8 MM HG (80-95)
[2019-05-13] MEDS: MAGNESIUM HYDROXIDE SUSP 30 ML UDCUP PO PRN (18:32)
[2019-05-13] MEDS: carvediloL 3.125 MG TABLET PO SCH (20:42)
[2019-05-14] MEDS: methylPREDNISolone SOD SUC 40 MG/1 ML VIAL IV SCH ×2 (02:21→13:50)
[2019-05-14] MEDS: PHENYLEPHRINE DRIP 40 MG/250 ML PREMIX IV PRN ×6 (03:58→22:30)
[2019-05-14 05:18] LABS: Apearance,Urine CLOUDY (Clear); Bilirubin,Urine Negative (Negative); Blood, Urine Large mg/dL (Negative); Glucose,Urine (UA) Negative (Negative); Hyaline Casts,Urine 227 /LPF (0-3); Ketones,Urine Negative (Negative); Mucus,Urine Few /LPF (Occasional); Nitrite,Urine Negative (Negative); Protein,Urine Negative; RBC,Urine 109 /HPF (0-4); Urine Color Yellow (Yellow); Urine Specific Gravity 1.012 (1.001-1.035); Urine Urobilinogen < 2.0 EU/DL (0.2-1.0); WBC,Urine 79 /HPF (0-6)
[2019-05-14 05:49] LABS: Basophils % 0.1 % (0.0-0.8); Eosinophils % 0.1 % (0.00-10.9); Hemoglobin 12.3 GM/DL (14.0-18.0); Immature Granulocytes % 0.4 %; Immature Granulocytes Absolute 0.05 #; Lymphocytes # 0.2 10*3/uL (1.4-4.0); Lymphocytes % 1.8 % (21.2-54.2); Mean Corpuscular HGB Conc 32.4 GM/DL (32-36); Mean Corpuscular Volume 89.2 FL (87-102); Mean Platelet Volume 13.7 FL (9.6-12.0); Monocytes % 4.5 % (1.7-12.7); Neutrophils % 93.1 % (38.7-73.9); Platelet Count 72 T/CUMM (130-400); Red Blood Count 4.26 MC/CUMM (3.8-5.5); Red Cell Distribution Width 15.3 % (9.3-17.3); White Blood Count 11.8 T/CUMM (4-12)
[2019-05-14 05:56] LABS: ABG Base Excess 13.7 MMOL/L (-2.5-2.5); ABG HCO3 37.6 MMOL/L (20-26); ABG Oxygen Saturation 95.9 % (95-100); ABG PCO2 66.3 MM HG (35-48); ABG PH 7.409 (7.35-7.45); ABG PO2 80.8 MM HG (80-95); ABG TCO2 36.9 MMOL/L (23-27)
[2019-05-14 06:12] LABS: Band Neutrophils 2 % (0-10); Lymphocytes 2 % (20-55); Segmented Neutrophils 87 % (50-85); Total Cells Counted 100
[2019-05-14 06:13] LABS: Hypochromasia 2+; Microcytosis Slight; Ovalocytes Slight
[2019-05-14 06:14] LABS: Platelet Estimate Decreased
[2019-05-14 06:26] LABS: Albumin 2.8 G/DL (3.4-5.0); Bilirubin,Direct 0.18 MG/DL (0.0-0.20); Bilirubin,Indirect 0.6 MG/DL (0.0-1.0); Bilirubin,Total 0.8 MG/DL (0.2-1.0); Osmolality,Calculated 275.6 MOS/KG (273-304); Total Protein 5.8 G/DL (6.4-8.3)
[2019-05-14] MEDS: SODIUM CHLORIDE 0.9% 1,000 ML IV SCH ×2 (07:10→17:18)
[2019-05-14] MEDS: DOBUTamine 500 MG/250 ML PREMIX IV PRN ×3 (07:42→21:02)
[2019-05-14] MEDS: ALBUTEROL/IPRATROPIUM 3 ML NEB RESP TX SCH ×5 (08:45→22:49)
[2019-05-14] MEDS ORDERED: NALOXONE 0.4 MG/ML VIAL IV PRN (09:22)
[2019-05-14] MEDS ORDERED: flumazeniL 0.5 MG/5 ML VIAL IV PRN (09:24)
[2019-05-14] MEDS ORDERED: RACEPINEPHRINE 0.5 ML NEB RESP TX PRN (09:26)
[2019-05-14] MEDS: DILTIAZEM 60 MG TABLET PO SCH (10:43)
[2019-05-14] MEDS: LEVOTHYROXINE 75 MCG TABLET PO SCH (10:43)
[2019-05-14] MEDS: ASPIRIN EC 325 MG TABLET PO SCH (10:43)
[2019-05-14] MEDS: carvediloL 3.125 MG TABLET PO SCH (10:44)
[2019-05-14] MEDS: FERROUS GLUCONATE 240 MG TABLET PO SCH (10:44)
[2019-05-14] MEDS: TAMSULOSIN 0.4 MG CAPSULE PO SCH ×2 (10:44→21:29)
[2019-05-14] MEDS: PANTOPRAZOLE 40 MG TABLET PO SCH ×2 (10:45→21:29)
[2019-05-14] MEDS: MEROPENEM 500 MG in SODIUM CHLORIDE 0.9% 100 ML IV SCH ×2 (10:45→17:18)
[2019-05-14] MEDS: EZETIMIBE 10 MG TABLET PO SCH (10:45)
[2019-05-14] MEDS: INSULIN LISPRO 100 UNIT/ML SUBCUT SCH ×3 (10:45→21:30)
[2019-05-14] MEDS: GABAPENTIN 400 MG CAPSULE PO SCH ×2 (10:45→21:21)
[2019-05-14] MEDS: NITROGLYCERIN SL 0.4 MG TABLET SL PRN ×2 (11:36→11:41)
[2019-05-14] MEDS ORDERED: MORPHINE 4 MG/1 ML VIAL ONE (11:56)
[2019-05-14] MEDS: ONDANSETRON 4 MG/2 ML VIAL IV PRN (11:58)
[2019-05-14] MEDS ORDERED: ENOXAPARIN 120 MG/0.8 ML SYRINGE SUBCUT ONE (12:00)
[2019-05-14] MEDS ORDERED: MORPHINE 4 MG/1 ML VIAL IV ONE (12:00)
[2019-05-14 14:03] LABS: Troponin I 0.029 NG/ML (0.00-0.045)
[2019-05-14] MEDS: Umeclidinium-Vilanterol [Anoro Ellipta] 1 inh INH SCH (15:35)
[2019-05-14 16:41] LABS: Troponin I 0.043 NG/ML (0.00-0.045)
[2019-05-14 20:19] LABS: Troponin I 0.048 NG/ML (0.00-0.045)
[2019-05-15] MEDS: ALBUTEROL/IPRATROPIUM 3 ML NEB RESP TX SCH ×4 (00:20→19:54)
[2019-05-15] MEDS: MEROPENEM 500 MG in SODIUM CHLORIDE 0.9% 100 ML IV SCH ×3 (01:19→17:00)
[2019-05-15] MEDS: methylPREDNISolone SOD SUC 40 MG/1 ML VIAL IV SCH ×2 (01:35→13:05)
[2019-05-15] MEDS: PHENYLEPHRINE DRIP 40 MG/250 ML PREMIX IV PRN ×5 (02:35→21:00)
[2019-05-15] MEDS: SODIUM CHLORIDE 0.9% 1,000 ML IV SCH ×2 (03:20→13:00)
[2019-05-15 04:07] LABS: Basophils % 0.1 % (0.0-0.8); Hematocrit 32.5 VOL% (42.0-52.0); Hemoglobin 10.2 GM/DL (14.0-18.0); Immature Granulocytes % 0.7 %; Immature Granulocytes Absolute 0.07 #; Lymphocytes # 0.2 10*3/uL (1.4-4.0); Lymphocytes % 1.6 % (21.2-54.2); Mean Corpuscular HGB Conc 31.4 GM/DL (32-36); Mean Corpuscular Volume 90.8 FL (87-102); Mean Platelet Volume 11.1 FL (9.6-12.0); Monocytes % 5.9 % (1.7-12.7); Neutrophils % 91.7 % (38.7-73.9); Platelet Count 140 T/CUMM (130-400); Red Blood Count 3.58 MC/CUMM (3.8-5.5); Red Cell Distribution Width 15.6 % (9.3-17.3); White Blood Count 9.8 T/CUMM (4-12)
[2019-05-15 04:34] LABS: Albumin 2.8 G/DL (3.4-5.0); Bilirubin,Direct 0.38 MG/DL (0.0-0.20); Bilirubin,Indirect 0.3 MG/DL (0.0-1.0); Bilirubin,Total 0.7 MG/DL (0.2-1.0); Osmolality,Calculated 287.5 MOS/KG (273-304); Total Protein 5.3 G/DL (6.4-8.3)
[2019-05-15 05:18] LABS: Lymphocytes 1 % (20-55); Platelet Estimate Decreased; Polychromasia Few; Segmented Neutrophils 96 % (50-85); Total Cells Counted 100
[2019-05-15] MEDS: DOBUTamine 500 MG/250 ML PREMIX IV PRN ×3 (05:30→18:56)
[2019-05-15] MEDS: FERROUS GLUCONATE 240 MG TABLET PO SCH (08:30)
[2019-05-15] MEDS: ASPIRIN EC 325 MG TABLET PO SCH (08:30)
[2019-05-15] MEDS: LEVOTHYROXINE 75 MCG TABLET PO SCH (08:30)
[2019-05-15] MEDS: GABAPENTIN 400 MG CAPSULE PO SCH ×2 (08:30→21:13)
[2019-05-15] MEDS: INSULIN LISPRO 100 UNIT/ML SUBCUT SCH ×3 (08:30→21:31)
[2019-05-15] MEDS: TAMSULOSIN 0.4 MG CAPSULE PO SCH ×2 (08:30→21:13)
[2019-05-15] MEDS: EZETIMIBE 10 MG TABLET PO SCH (08:30)
[2019-05-15] MEDS: PANTOPRAZOLE 40 MG TABLET PO SCH ×2 (08:30→21:13)
[2019-05-15] MEDS: ONDANSETRON 4 MG/2 ML VIAL IV PRN (09:00)
[2019-05-15] MEDS: Umeclidinium-Vilanterol [Anoro Ellipta] 1 inh INH SCH (16:10)
[2019-05-16] MEDS: PHENYLEPHRINE DRIP 40 MG/250 ML PREMIX IV PRN ×3 (01:05→13:01)
[2019-05-16] MEDS: DOBUTamine 500 MG/250 ML PREMIX IV PRN ×3 (01:30→20:07)
[2019-05-16] MEDS: MEROPENEM 500 MG in SODIUM CHLORIDE 0.9% 100 ML IV SCH ×3 (01:30→17:22)
[2019-05-16] MEDS: ALBUTEROL/IPRATROPIUM 3 ML NEB RESP TX SCH ×4 (02:00→19:14)
[2019-05-16] MEDS: methylPREDNISolone SOD SUC 40 MG/1 ML VIAL IV SCH ×2 (02:01→13:38)
[2019-05-16 04:17] LABS: Hemoglobin 10.2 GM/DL (14.0-18.0); Immature Granulocytes Absolute 0.08 #; Lymphocytes # 0.1 10*3/uL (1.4-4.0); Lymphocytes % 1.7 % (21.2-54.2); Mean Corpuscular HGB Conc 30.9 GM/DL (32-36); Mean Corpuscular Volume 93.2 FL (87-102); Mean Platelet Volume 11.8 FL (9.6-12.0); Neutrophils % 91.3 % (38.7-73.9); Platelet Count 124 T/CUMM (130-400); Red Blood Count 3.54 MC/CUMM (3.8-5.5); Red Cell Distribution Width 15.9 % (9.3-17.3); White Blood Count 7.8 T/CUMM (4-12)
[2019-05-16 04:39] LABS: Hypochromasia 1+; Platelet Estimate Normal; Segmented Neutrophils 95 % (50-85); Total Cells Counted 100
[2019-05-16 04:40] LABS: Microcytosis Slight
[2019-05-16 04:41] LABS: Albumin 2.7 G/DL (3.4-5.0); Bilirubin,Direct 0.35 MG/DL (0.0-0.20); Bilirubin,Indirect 0.4 MG/DL (0.0-1.0); Bilirubin,Total 0.7 MG/DL (0.2-1.0); Calcium 8.1 MG/DL (8.5-10.1); Osmolality,Calculated 285.5 MOS/KG (273-304); Total Protein 5.1 G/DL (6.4-8.3)
[2019-05-16] MEDS: LEVOTHYROXINE 75 MCG TABLET PO SCH (06:16)
[2019-05-16] MEDS ORDERED: INSULIN LISPRO 100 UNIT/ML SUBCUT SCH (08:04)
[2019-05-16] MEDS: EZETIMIBE 10 MG TABLET PO SCH (09:45)
[2019-05-16] MEDS: CLORAZEPATE 3.75 MG TABLET PO PRN ×2 (09:46→20:24)
[2019-05-16] MEDS: ASPIRIN EC 325 MG TABLET PO SCH (09:46)
[2019-05-16] MEDS: FERROUS GLUCONATE 240 MG TABLET PO SCH (09:46)
[2019-05-16] MEDS: GABAPENTIN 400 MG CAPSULE PO SCH ×2 (09:47→20:23)
[2019-05-16] MEDS: PANTOPRAZOLE 40 MG TABLET PO SCH ×2 (09:47→20:23)
[2019-05-16] MEDS: MAGNESIUM HYDROXIDE SUSP 30 ML UDCUP PO PRN ×2 (09:49→22:20)
[2019-05-16] MEDS: INSULIN LISPRO 100 UNIT/ML SUBCUT SCH ×3 (09:51→17:20)
[2019-05-16] MEDS ORDERED: LACTULOSE 20 GM/30 ML UDCUP PO ONE (10:38)
[2019-05-16] MEDS: TAMSULOSIN 0.4 MG CAPSULE PO SCH ×2 (10:52→20:23)
[2019-05-16] MEDS: Umeclidinium-Vilanterol [Anoro Ellipta] 1 inh INH SCH (13:42)
[2019-05-16] MEDS: ONDANSETRON 4 MG/2 ML VIAL IV PRN (19:59)
[2019-05-16] MEDS: QUEtiapine 25 MG TABLET PO PRN (20:24)
[2019-05-17] MEDS: ALBUTEROL/IPRATROPIUM 3 ML NEB RESP TX SCH ×4 (00:21→19:15)
[2019-05-17] MEDS: MEROPENEM 500 MG in SODIUM CHLORIDE 0.9% 100 ML IV SCH ×3 (00:30→17:18)
[2019-05-17] MEDS: methylPREDNISolone SOD SUC 40 MG/1 ML VIAL IV SCH ×2 (00:30→12:30)
[2019-05-17 04:28] LABS: Basophils % 0.2 % (0.0-0.8); Hematocrit 35.4 VOL% (42.0-52.0); Hemoglobin 10.5 GM/DL (14.0-18.0); Immature Granulocytes % 1.8 %; Immature Granulocytes Absolute 0.17 #; Lymphocytes # 0.2 10*3/uL (1.4-4.0); Lymphocytes % 1.6 % (21.2-54.2); Mean Corpuscular HGB Conc 29.7 GM/DL (32-36); Mean Corpuscular Volume 94.7 FL (87-102); Mean Platelet Volume 11.2 FL (9.6-12.0); Monocytes % 5.7 % (1.7-12.7); Neutrophils % 90.7 % (38.7-73.9); Platelet Count 135 T/CUMM (130-400); Red Blood Count 3.74 MC/CUMM (3.8-5.5); Red Cell Distribution Width 15.9 % (9.3-17.3); White Blood Count 9.3 T/CUMM (4-12)
[2019-05-17 04:54] LABS: Albumin 2.7 G/DL (3.4-5.0); Bilirubin,Direct 0.3 MG/DL (0.0-0.20); Bilirubin,Indirect 0.7 MG/DL (0.0-1.0); Calcium 7.8 MG/DL (8.5-10.1); Osmolality,Calculated 286.5 MOS/KG (273-304); Total Protein 5.3 G/DL (6.4-8.3)
[2019-05-17 04:55] LABS: Hypochromasia 1+; Lymphocytes 4 % (20-55); Microcytosis Slight; Platelet Estimate Normal; Segmented Neutrophils 93 % (50-85); Total Cells Counted 100
[2019-05-17] MEDS: LEVOTHYROXINE 75 MCG TABLET PO SCH (06:04)
[2019-05-17] MEDS ORDERED: ALBUTEROL/IPRATROPIUM 3 ML NEB RESP TX PRN (07:23)
[2019-05-17] MEDS ORDERED: LACTULOSE 20 GM/30 ML UDCUP PO ONE (07:35)
[2019-05-17] MEDS ORDERED: BISACODYL 10 MG SUPP RECTAL ONE (07:37)
[2019-05-17] MEDS ORDERED: CLORAZEPATE 3.75 MG TABLET PO PRN (08:37)
[2019-05-17] MEDS ORDERED: CLORAZEPATE 3.75 MG TABLET PO SCH (09:00)
[2019-05-17] MEDS: INSULIN LISPRO 100 UNIT/ML SUBCUT SCH ×3 (09:55→17:15)
[2019-05-17] MEDS: ASPIRIN EC 325 MG TABLET PO SCH (09:56)
[2019-05-17] MEDS: PANTOPRAZOLE 40 MG TABLET PO SCH ×2 (09:56→21:56)
[2019-05-17] MEDS: FERROUS GLUCONATE 240 MG TABLET PO SCH (09:56)
[2019-05-17] MEDS: EZETIMIBE 10 MG TABLET PO SCH (09:56)
[2019-05-17] MEDS: TAMSULOSIN 0.4 MG CAPSULE PO SCH ×2 (09:56→21:55)
[2019-05-17] MEDS: GABAPENTIN 400 MG CAPSULE PO SCH ×2 (09:56→21:56)
[2019-05-17] MEDS: ONDANSETRON 4 MG/2 ML VIAL IV PRN (12:20)
[2019-05-17] MEDS: Umeclidinium-Vilanterol [Anoro Ellipta] 1 inh INH SCH (14:30)
[2019-05-17] MEDS: PROMETHAZINE 25 MG/1 ML VIAL IM PRN (19:48)
[2019-05-17] MEDS ORDERED: INSULIN GLARGINE 100 UNIT/ML SUBCUT SCH (21:00)
[2019-05-17 21:31] LABS: ABG Base Excess 15.6 MMOL/L (-2.5-2.5); ABG HCO3 39.6 MMOL/L (20-26); ABG PCO2 68.3 MM HG (35-48); ABG PH 7.414 (7.35-7.45); ABG TCO2 39.1 MMOL/L (23-27); Allen Test Positive; Pt O2 Delivery Device BIPAP
[2019-05-18] MEDS: MEROPENEM 500 MG in SODIUM CHLORIDE 0.9% 100 ML IV SCH ×3 (01:18→17:46)
[2019-05-18] MEDS: methylPREDNISolone SOD SUC 40 MG/1 ML VIAL IV SCH ×2 (01:19→13:09)
[2019-05-18] MEDS: ALBUTEROL/IPRATROPIUM 3 ML NEB RESP TX SCH ×4 (02:26→18:50)
[2019-05-18 04:20] LABS: Basophils % 0.2 % (0.0-0.8); Hematocrit 36.7 VOL% (42.0-52.0); Hemoglobin 10.9 GM/DL (14.0-18.0); Immature Granulocytes % 3.6 %; Immature Granulocytes Absolute 0.46 #; Lymphocytes # 0.3 10*3/uL (1.4-4.0); Lymphocytes % 2.6 % (21.2-54.2); Mean Corpuscular HGB Conc 29.7 GM/DL (32-36); Mean Corpuscular Volume 95.3 FL (87-102); Mean Platelet Volume 10.6 FL (9.6-12.0); Monocytes % 5.4 % (1.7-12.7); Neutrophils % 88.2 % (38.7-73.9); Platelet Count 159 T/CUMM (130-400); Red Blood Count 3.85 MC/CUMM (3.8-5.5); Red Cell Distribution Width 15.7 % (9.3-17.3); White Blood Count 12.8 T/CUMM (4-12)
[2019-05-18 05:04] LABS: Anisocytosis 1+; Basophilic Stippling Slight; Hypochromasia 1+; Lymphocytes 3 % (20-55); Platelet Estimate Adequate; Segmented Neutrophils 92 % (50-85); Total Cells Counted 100
[2019-05-18 05:31] LABS: Alanine Aminotransferase 36 U/L (16-61); Albumin 2.7 G/DL (3.4-5.0); Alkaline Phosphatase 93 U/L (45-117); Aspartate Amino Transferase 20 U/L (0-37); Bilirubin,Indirect 0.3 MG/DL (0.0-1.0); Blood Urea Nitrogen 51 MG/DL (7-18); Calcium 7.2 MG/DL (8.5-10.1); Estimated Glom Filtration Rate 71 ML/MIN; Glucose 172 MG/DL (74-106); Osmolality,Calculated 290.8 MOS/KG (273-304); Total Protein 5.3 G/DL (6.4-8.3)
[2019-05-18] MEDS: LEVOTHYROXINE 75 MCG TABLET PO SCH (07:45)
[2019-05-18] MEDS: EZETIMIBE 10 MG TABLET PO SCH (08:27)
[2019-05-18] MEDS: FERROUS GLUCONATE 240 MG TABLET PO SCH (08:27)
[2019-05-18] MEDS: PANTOPRAZOLE 40 MG TABLET PO SCH ×2 (08:27→21:22)
[2019-05-18] MEDS: GABAPENTIN 400 MG CAPSULE PO SCH ×2 (08:27→21:22)
[2019-05-18] MEDS: INSULIN LISPRO 100 UNIT/ML SUBCUT SCH ×3 (08:27→17:45)
[2019-05-18] MEDS: ASPIRIN EC 325 MG TABLET PO SCH (08:27)
[2019-05-18] MEDS: TAMSULOSIN 0.4 MG CAPSULE PO SCH ×2 (08:28→21:23)
[2019-05-18] MEDS ORDERED: DIGOXIN 0.5 MG/2 ML AMP IV ONE (11:00)
[2019-05-18] MEDS: ASCORBIC ACID 500 MG TABLET PO SCH ×2 (11:29→21:23)
[2019-05-18] MEDS: Umeclidinium-Vilanterol [Anoro Ellipta] 1 inh INH SCH (13:12)
[2019-05-18] MEDS: carvediloL 3.125 MG TABLET PO SCH (17:46)
[2019-05-18] MEDS: QUEtiapine 25 MG TABLET PO PRN (21:22)
[2019-05-18] MEDS: INSULIN GLARGINE 100 UNIT/ML SUBCUT SCH (21:23)
[2019-05-19] MEDS: ALBUTEROL/IPRATROPIUM 3 ML NEB RESP TX SCH ×4 (01:11→19:23)
[2019-05-19] MEDS: MEROPENEM 500 MG in SODIUM CHLORIDE 0.9% 100 ML IV SCH ×3 (01:18→16:56)
[2019-05-19] MEDS: methylPREDNISolone SOD SUC 40 MG/1 ML VIAL IV SCH ×2 (01:18→13:07)
[2019-05-19 05:02] LABS: Albumin 2.7 G/DL (3.4-5.0); Bilirubin,Direct 0.23 MG/DL (0.0-0.20); Bilirubin,Total 1.2 MG/DL (0.2-1.0); Osmolality,Calculated 291.4 MOS/KG (273-304); Total Protein 5.2 G/DL (6.4-8.3)
[2019-05-19 06:01] LABS: Basophils % 0.3 % (0.0-0.8); Hematocrit 38.2 VOL% (42.0-52.0); Hemoglobin 11.6 GM/DL (14.0-18.0); Immature Granulocytes % 3.5 %; Immature Granulocytes Absolute 0.53 #; Lymphocytes # 0.3 10*3/uL (1.4-4.0); Lymphocytes % 2.1 % (21.2-54.2); Mean Corpuscular HGB Conc 30.4 GM/DL (32-36); Mean Platelet Volume 11.3 FL (9.6-12.0); NRBC # 0.02 10*3/uL; Neutrophils % 90.1 % (38.7-73.9); Platelet Count 181 T/CUMM (130-400); Red Blood Count 3.94 MC/CUMM (3.8-5.5); Red Cell Distribution Width 15.4 % (9.3-17.3); White Blood Count 15.1 T/CUMM (4-12)
[2019-05-19] MEDS: LEVOTHYROXINE 75 MCG TABLET PO SCH (06:39)
[2019-05-19 06:57] LABS: Band Neutrophils 12 % (0-10); Lymphocytes 1 % (20-55); Segmented Neutrophils 83 % (50-85); Total Cells Counted 100
[2019-05-19 06:58] LABS: Anisocytosis Slight; Macrocytosis 2+; Platelet Estimate Normal
[2019-05-19] MEDS: FERROUS GLUCONATE 240 MG TABLET PO SCH (08:34)
[2019-05-19] MEDS: ASPIRIN EC 325 MG TABLET PO SCH (08:34)
[2019-05-19] MEDS: EZETIMIBE 10 MG TABLET PO SCH (08:34)
[2019-05-19] MEDS: ASCORBIC ACID 500 MG TABLET PO SCH ×2 (08:34→20:21)
[2019-05-19] MEDS: GABAPENTIN 400 MG CAPSULE PO SCH ×2 (08:35→20:21)
[2019-05-19] MEDS: PANTOPRAZOLE 40 MG TABLET PO SCH ×2 (08:35→20:22)
[2019-05-19] MEDS: carvediloL 3.125 MG TABLET PO SCH ×3 (08:35→23:15)
[2019-05-19] MEDS: INSULIN LISPRO 100 UNIT/ML SUBCUT SCH ×4 (08:41→16:55)
[2019-05-19] MEDS: TAMSULOSIN 0.4 MG CAPSULE PO SCH ×2 (08:44→20:21)
[2019-05-19] MEDS: ONDANSETRON 4 MG/2 ML VIAL IV PRN (10:23)
[2019-05-19] MEDS: INSULIN LISPRO 100 UNIT/ML SUBCUT PRN ×2 (13:10→18:18)
[2019-05-19] MEDS: Umeclidinium-Vilanterol [Anoro Ellipta] 1 inh INH SCH (13:56)
[2019-05-19] MEDS: INSULIN GLARGINE 100 UNIT/ML SUBCUT SCH (20:21)
[2019-05-19] MEDS: QUEtiapine 25 MG TABLET PO PRN (20:22)
[2019-05-19] MEDS: MELATONIN 3 MG TABLET PO PRN (20:22)
[2019-05-20] MEDS: MEROPENEM 500 MG in SODIUM CHLORIDE 0.9% 100 ML IV SCH ×3 (01:03→17:32)
[2019-05-20] MEDS: methylPREDNISolone SOD SUC 40 MG/1 ML VIAL IV SCH ×3 (01:03→20:23)
[2019-05-20] MEDS: ALBUTEROL/IPRATROPIUM 3 ML NEB RESP TX SCH ×4 (01:55→19:27)
[2019-05-20 04:42] LABS: Basophils % 0.2 % (0.0-0.8); Hematocrit 37.6 VOL% (42.0-52.0); Hemoglobin 11.3 GM/DL (14.0-18.0); Immature Granulocytes % 4.7 %; Immature Granulocytes Absolute 0.92 #; Lymphocytes # 0.5 10*3/uL (1.4-4.0); Lymphocytes % 2.4 % (21.2-54.2); Mean Corpuscular HGB Conc 30.1 GM/DL (32-36); Mean Corpuscular Volume 94.5 FL (87-102); Mean Platelet Volume 11.8 FL (9.6-12.0); Monocytes % 4.4 % (1.7-12.7); Neutrophils % 88.3 % (38.7-73.9); Platelet Count 194 T/CUMM (130-400); Red Blood Count 3.98 MC/CUMM (3.8-5.5); Red Cell Distribution Width 15.4 % (9.3-17.3); White Blood Count 19.5 T/CUMM (4-12)
[2019-05-20 05:05] LABS: Hypochromasia 1+; Lymphocytes 5 % (20-55); Ovalocytes Slight; Platelet Estimate Adequate; Segmented Neutrophils 94 % (50-85); Total Cells Counted 100
[2019-05-20 05:22] LABS: Albumin 2.6 G/DL (3.4-5.0); Bilirubin,Direct 0.24 MG/DL (0.0-0.20); Bilirubin,Indirect 0.7 MG/DL (0.0-1.0); Bilirubin,Total 0.9 MG/DL (0.2-1.0); Calcium 8.3 MG/DL (8.5-10.1); Total Protein 5.1 G/DL (6.4-8.3)
[2019-05-20] MEDS: carvediloL 3.125 MG TABLET PO SCH ×3 (05:46→18:23)
[2019-05-20] MEDS: LEVOTHYROXINE 75 MCG TABLET PO SCH (06:08)
[2019-05-20] MEDS: INSULIN LISPRO 100 UNIT/ML SUBCUT SCH ×3 (11:16→18:23)
[2019-05-20] MEDS ORDERED: MICROFIBRILLAR COLLAGEN POWDER 1 GM CAN TOP ONE (12:31)
[2019-05-20] MEDS ORDERED: THROMBIN TOPICAL (RECOMBINANT) 5,000 UNIT VIAL TOP ONE (12:31)
[2019-05-20] MEDS ORDERED: LIDOCAINE 1%/EPI INJ 20 ML VIAL ONE (12:31)
[2019-05-20] MEDS ORDERED: DIGOXIN 0.5 MG/2 ML AMP IV ONE (13:27)
[2019-05-20] MEDS ORDERED: GLYCOPYRROLATE 0.4 MG/2 ML VIAL IM STA (17:09)
[2019-05-20] MEDS: GABAPENTIN 400 MG CAPSULE PO SCH ×2 (18:22→22:07)
[2019-05-20] MEDS: PANTOPRAZOLE 40 MG TABLET PO SCH ×2 (18:22→22:07)
[2019-05-20] MEDS: ASCORBIC ACID 500 MG TABLET PO SCH ×2 (18:23→22:07)
[2019-05-20] MEDS ORDERED: SEVOFLURANE 1 UNIT/15 MINUTE INH ONE (19:10)
[2019-05-20] MEDS ORDERED: LACTATED RINGERS 1,000 ML IV ONE (19:11)
[2019-05-20] MEDS ORDERED: KETAMINE 500 MG/10 ML VIAL ONE (19:11)
[2019-05-20] MEDS ORDERED: MIDAZOLAM 2 MG/2 ML VIAL ONE (19:11)
[2019-05-20] MEDS: ONDANSETRON 4 MG/2 ML VIAL IV PRN (20:00)
[2019-05-20] MEDS: INSULIN GLARGINE 100 UNIT/ML SUBCUT SCH (22:00)
[2019-05-20] MEDS: EZETIMIBE 10 MG TABLET PO SCH (22:05)
[2019-05-20] MEDS: FERROUS GLUCONATE 240 MG TABLET PO SCH (22:05)
[2019-05-20] MEDS: ASPIRIN EC 325 MG TABLET PO SCH (22:05)
[2019-05-20] MEDS: Umeclidinium-Vilanterol [Anoro Ellipta] 1 inh INH SCH (22:05)
[2019-05-20] MEDS: TAMSULOSIN 0.4 MG CAPSULE PO SCH (22:05)
[2019-05-20] MEDS: BISOPROLOL 5 MG TABLET PO SCH (22:06)
[2019-05-21] MEDS: ALBUTEROL/IPRATROPIUM 3 ML NEB RESP TX SCH ×4 (00:35→19:08)
[2019-05-21] MEDS: MEROPENEM 500 MG in SODIUM CHLORIDE 0.9% 100 ML IV SCH ×3 (01:12→17:58)
[2019-05-21] MEDS: QUEtiapine 25 MG TABLET PO PRN ×2 (01:12→20:40)
[2019-05-21 03:43] LABS: Basophils # 0.1 10*3/uL (0.0-0.2); Basophils % 0.3 % (0.0-0.8); Hematocrit 39.3 VOL% (42.0-52.0); Hemoglobin 11.8 GM/DL (14.0-18.0); Immature Granulocytes % 2.8 %; Immature Granulocytes Absolute 0.66 #; Lymphocytes # 0.3 10*3/uL (1.4-4.0); Lymphocytes % 1.2 % (21.2-54.2); Mean Corpuscular Volume 94.9 FL (87-102); Mean Platelet Volume 11.1 FL (9.6-12.0); Neutrophils % 92.7 % (38.7-73.9); Platelet Count 213 T/CUMM (130-400); Red Blood Count 4.14 MC/CUMM (3.8-5.5); Red Cell Distribution Width 15.4 % (9.3-17.3); White Blood Count 23.9 T/CUMM (4-12)
[2019-05-21 04:10] LABS: Calcium 8.1 MG/DL (8.5-10.1); Osmolality,Calculated 294.7 MOS/KG (273-304)
[2019-05-21 04:41] LABS: Band Neutrophils 2 % (0-10); Lymphocytes 2 % (20-55); Platelet Estimate Normal; Segmented Neutrophils 93 % (50-85); Total Cells Counted 100
[2019-05-21] MEDS: LEVOTHYROXINE 75 MCG TABLET PO SCH (06:31)
[2019-05-21] MEDS: ONDANSETRON 4 MG/2 ML VIAL IV PRN ×2 (06:32→18:19)
[2019-05-21 06:39] VITALS: BP 108/67
[2019-05-21] MEDS: BISOPROLOL 5 MG TABLET PO SCH ×2 (09:43→20:41)
[2019-05-21] MEDS: FUROSEMIDE 40 MG/4 ML VIAL IV SCH (09:43)
[2019-05-21] MEDS: INSULIN LISPRO 100 UNIT/ML SUBCUT SCH ×3 (09:43→17:35)
[2019-05-21] MEDS: ASPIRIN EC 325 MG TABLET PO SCH (09:44)
[2019-05-21] MEDS: FERROUS GLUCONATE 240 MG TABLET PO SCH (09:44)
[2019-05-21] MEDS: GABAPENTIN 400 MG CAPSULE PO SCH ×2 (09:44→20:40)
[2019-05-21] MEDS: ASCORBIC ACID 500 MG TABLET PO SCH ×2 (09:44→20:41)
[2019-05-21] MEDS: EZETIMIBE 10 MG TABLET PO SCH (09:44)
[2019-05-21] MEDS: TAMSULOSIN 0.4 MG CAPSULE PO SCH (09:44)
[2019-05-21] MEDS: PANTOPRAZOLE 40 MG TABLET PO SCH ×2 (09:44→20:40)
[2019-05-21] MEDS: methylPREDNISolone SOD SUC 40 MG/1 ML VIAL IV SCH ×2 (09:45→20:40)
[2019-05-21] MEDS: VANCOMYCIN INJ 1,750 MG in SODIUM CHLORIDE 0.9% 500 ML IV SCH (14:03)
[2019-05-21] MEDS ORDERED: BISOPROLOL 5 MG TABLET PO ONE (14:05)
[2019-05-21] MEDS: Umeclidinium-Vilanterol [Anoro Ellipta] 1 inh INH SCH (17:37)
[2019-05-21] MEDS: INSULIN GLARGINE 100 UNIT/ML SUBCUT SCH (20:40)
[2019-05-21] MEDS: MELATONIN 3 MG TABLET PO PRN (20:40)
[2019-05-22] MEDS: ALBUTEROL/IPRATROPIUM 3 ML NEB RESP TX SCH ×3 (00:35→13:04)
[2019-05-22] MEDS: VANCOMYCIN INJ 1,750 MG in SODIUM CHLORIDE 0.9% 500 ML IV SCH ×2 (00:41→12:40)
[2019-05-22 03:12] LABS: Basophils # 0.1 10*3/uL (0.0-0.2); Basophils % 0.2 % (0.0-0.8); Mean Corpuscular Volume 97.4 FL (87-102)
[2019-05-22 03:34] LABS: Calcium 8.3 MG/DL (8.5-10.1); Osmolality,Calculated 292.5 MOS/KG (273-304)
[2019-05-22 03:36] LABS: Hematocrit 37.4 VOL% (42.0-52.0); Immature Granulocytes % 2.3 %; Lymphocytes # 0.3 10*3/uL (1.4-4.0); Lymphocytes % 1.2 % (21.2-54.2); Mean Corpuscular HGB Conc 29.9 GM/DL (32-36); Mean Platelet Volume 11.1 FL (9.6-12.0); Monocytes % 3.5 % (1.7-12.7); Neutrophils % 92.8 % (38.7-73.9); Platelet Count 176 T/CUMM (130-400); Red Blood Count 3.84 MC/CUMM (3.8-5.5); White Blood Count 21.6 T/CUMM (4-12)
[2019-05-22 03:37] LABS: Hemoglobin 11.2 GM/DL (14.0-18.0)
[2019-05-22 04:24] LABS: Anisocytosis 1+; Band Neutrophils 3 % (0-10); Nucleated Red Blood Cells 1 (0-5); Segmented Neutrophils 95 % (50-85); Total Cells Counted 100
[2019-05-22 04:25] LABS: Ovalocytes 1+; Platelet Estimate Normal
[2019-05-22] MEDS: LEVOTHYROXINE 75 MCG TABLET PO SCH (06:18)
[2019-05-22] MEDS: INSULIN LISPRO 100 UNIT/ML SUBCUT SCH ×2 (07:52→12:26)
[2019-05-22] MEDS: PANTOPRAZOLE 40 MG TABLET PO SCH (08:00)
[2019-05-22] MEDS: GABAPENTIN 400 MG CAPSULE PO SCH (08:00)
[2019-05-22] MEDS: FERROUS GLUCONATE 240 MG TABLET PO SCH (08:01)
[2019-05-22] MEDS: ASPIRIN EC 325 MG TABLET PO SCH (08:01)
[2019-05-22] MEDS: EZETIMIBE 10 MG TABLET PO SCH (08:02)
[2019-05-22] MEDS: ASCORBIC ACID 500 MG TABLET PO SCH (08:02)
[2019-05-22] MEDS: FUROSEMIDE 40 MG/4 ML VIAL IV SCH (08:05)
[2019-05-22] MEDS: methylPREDNISolone SOD SUC 40 MG/1 ML VIAL IV SCH (08:10)
[2019-05-22] MEDS: TAMSULOSIN 0.4 MG CAPSULE PO SCH (09:18)
[2019-05-22] MEDS: BISOPROLOL 5 MG TABLET PO SCH (09:19)
[2019-05-22] MEDS ORDERED: PSYLLIUM POWDER 3.7 GM/PACK PO SCH (10:30)
[2019-05-22] MEDS ORDERED: BISOPROLOL 5 MG TABLET PO ONE (10:30)
[2019-05-22] MEDS ORDERED: POLYETHYLENE GLYCOL POWDER 17 GM PACK PO SCH (10:30)
[2019-05-22] MEDS ORDERED: INFLUENZA VIRUS VACCINE 0.5 ML SYRINGE IM ONE (12:29)
[2019-05-22] MEDS ORDERED: BISOPROLOL 5 MG TABLET PO SCH (21:00)
[2019-05-23] MEDS ORDERED: BISOPROLOL 5 MG TABLET PO SCH ×2 (09:00→21:00)
== END 2019-05-22 14:25 | DRG 4 ==
LOC: N.ED 11:05 → N.EDINP 11:05 → N.TELES 12:26 → N.ICU 05-13 14:46
PROVIDERS: ADMIT Family Medicine; ATTEND Family Medicine